=== PATIENT | male | born 1975 | race Caucasian/White ===

== ENCOUNTER 2022-02-15 12:45 | Inpatient (IN) | payer OTHER ==
[2022-02-15 12:01] VITALS: BMI 46.2
[2022-02-15 17:01] LABS: Hemoglobin 13.4 g/dL (13.5-17.5); Mean Corpuscular HGB CONC 33.3 g/dL (32.0-36.0); Mean Corpuscular Hemoglobin 30.6 pg (27.0-33.0); Mean Platelet Volume 9.7 fl (7.4-10.4); Platelet Count 338 10x3/uL (150-450); RBC Distribution Width 13.6 % (11.5-14.5); Red Blood Cell (RBC) Count 4.38 10x6/uL (4.32-5.72); White Blood Cell (WBC) Count 12.4 10x3/uL (3.5-10.5)
[2022-02-15 17:20] LABS: Anion Gap 14 mmol/L (10-20); BUN (Urea Nitrogen) 21 mg/dL (8.9-20.6); Calc. Creatinine Clearance 0 mL/min (70-130); Carbon Dioxide 21 mmol/L (22-29); Chloride 103 mmol/L (98-107); Estimated GFR 46; Glucose 97 mg/dL (70-105); Potassium 4.3 mmol/L (3.5-5.1); Sodium 134 mmol/L (136-145)
[2022-02-18] MEDS ORDERED: Heparin 5,000 UNITS/ML VIAL ONE (06:21)
[2022-02-18] MEDS ORDERED: Protamine Sulfate 50 MG/5 ML VIAL ONE (06:21)
[2022-02-18] MEDS ORDERED: Bupivacaine HCl 0.5%/Epinephrine 1:200,000/PF 30 ml Vial ONE (06:21)
[2022-02-18] MEDS ORDERED: Fentanyl 250 MCG/5 ML VIAL ONE (06:50)
[2022-02-18] MEDS ORDERED: Midazolam HCl 2 mg/2 ml Vial ONE (06:50)
[2022-02-18] MEDS ORDERED: Ondansetron ODT 4 MG TAB ONE (07:02)
[2022-02-18 07:17] LABS: SARS-CoV-2 NAA Rapid Test Not Detected (NotDetected)
[2022-02-18] MEDS ORDERED: CEFAZOLIN 2 GM VIAL ONE (07:23)
[2022-02-18] MEDS ORDERED: Sodium Chloride 0.9% 100 ML ONE (07:23)
[2022-02-18] MEDS ORDERED: PROPOFOL 200 MG/20 ML VIAL ONE (07:52)
[2022-02-18] MEDS ORDERED: NEOSTIGMINE 3 MG/3 ML SYR 3 MG/3 ML SYRINGE ONE (07:52)
[2022-02-18] MEDS ORDERED: Rocuronium Bromide 10 MG/ML (10ML VIAL) ONE (07:52)
[2022-02-18] MEDS ORDERED: Ondansetron PF 4 MG/2 ML Vial ONE (07:52)
[2022-02-18] MEDS ORDERED: Glycopyrrolate 0.2 MG/ML 5 ML SYRINGE ONE (07:52)
[2022-02-18] MEDS ORDERED: Succinylcholine Chloride 100 MG/5 ML SYRINGE FS ONE (07:52)
[2022-02-18] MEDS ORDERED: Lidocaine 1% PF 5 ML VIAL ONE (07:52)
[2022-02-18] MEDS ORDERED: Phenylephrine 10 MG/ML VIAL ONE (08:28)
[2022-02-18] MEDS ORDERED: Promethazine HCl 25 MG/ML VIAL IVPB PRN (12:13)
[2022-02-18] MEDS ORDERED: Promethazine HCl 25 MG/ML VIAL IM PRN (12:13)
[2022-02-18] MEDS ORDERED: Ondansetron HCl/PF 4 MG/2 ML Vial IVP PRN (12:13)
[2022-02-18] MEDS ORDERED: Ondansetron PF 4 MG/2 ML Vial IVP PRN (12:21)
[2022-02-18] MEDS ORDERED: Lactated Ringer's 1,000 ML IV SCH (12:21)
[2022-02-18] MEDS ORDERED: Fentanyl 100 MCG/2 ML VIAL SLOW IVP PRN ×2 (12:21)
[2022-02-18] MEDS ORDERED: Ipratropium/Albuterol 3 ML NEB NEB PRN (12:21)
[2022-02-18] MEDS ORDERED: clonazePAM 0.5 MG TAB PO PRN (12:21)
[2022-02-18] MEDS ORDERED: HYDROcodone/Acetaminophen 5/325 mg Tablet PO PRN ×2 (12:21)
[2022-02-18] MEDS ORDERED: Acetaminophen 325 MG TAB PO PRN (12:21)
[2022-02-18] MEDS ORDERED: Insulin Regular 300 UNITS/3 ML VIAL SC PRN (12:21)
[2022-02-18] MEDS ORDERED: Fentanyl 100 MCG/2 ML VIAL ONE ×2 (12:27→13:16)
[2022-02-18] MEDS ORDERED: QUEtiapine 25 MG TAB PO SCH (21:00)
[2022-02-18] MEDS ORDERED: Atorvastatin Calcium 40 MG TAB PO SCH (21:00)
[2022-02-18] MEDS: CEFAZOLIN 2 GM in Sodium Chloride 0.9% 100 ML IVPB SCH (21:17)
[2022-02-18] MEDS: Gabapentin 300 MG CAP PO SCH (21:23)
[2022-02-19] MEDS: CEFAZOLIN 2 GM in Sodium Chloride 0.9% 100 ML IVPB SCH ×2 (03:53→12:05)
[2022-02-19 06:03] LABS: #Lymphocytes 1.9 thou/uL (1.20-3.40); #Monocytes 0.9 thou/uL (0.11-0.59); %Basophils 0.1 % (0.0-1.0); %Eosinophils 0.1 % (0.0-10.0); %Lymphocytes 16.4 % (21.0-51.0); %Monocytes 7.8 % (0.0-10.0); %Neutrophils 75.7 % (42.0-75.0); Hemoglobin 12.6 g/dL (14.0-18.0); Mean Corpuscular HGB CONC 31.7 g/dL (32.0-36.0); Mean Corpuscular Hemoglobin 30.9 pg (27.0-31.0); Mean Corpuscular Volume 97.7 fl (78.0-98.0); Mean Platelet Volume 7.9 fL (7.4-10.4); Platelet Count 267 10x3/uL (130-400); RBC Distribution Width 13.2 % (11.5-14.5); Red Blood Cell (RBC) Count 4.08 mill/uL (4.70-6.10); White Blood Cell (WBC) Count 11.9 10x3/uL (4.8-10.8)
[2022-02-19 06:24] LABS: Anion Gap 11 mmol/L (10-20); BUN (Urea Nitrogen) 20 mg/dL (8.9-20.6); Calc. Creatinine Clearance 153 mL/min (70-130); Calcium 8.8 mg/dL (7.8-10.44); Carbon Dioxide 21 mmol/L (22-29); Chloride 109 mmol/L (98-107); Estimated GFR 61; Glucose 140 mg/dL (70-105); Potassium 4.7 mmol/L (3.5-5.1); Sodium 136 mmol/L (136-145)
[2022-02-19 07:45] VITALS: TEMP 97.9
[2022-02-19] MEDS ORDERED: Spironolactone 25 MG TAB PO SCH (08:00)
[2022-02-19] MEDS ORDERED: Nebivolol HCl 5 MG TAB PO SCH (09:00)
[2022-02-19] MEDS ORDERED: Clopidogrel Bisulfate 75 MG TAB PO SCH (09:00)
[2022-02-19] MEDS ORDERED: Bupropion 150 MG XL TAB PO SCH (09:00)
[2022-02-19] MEDS ORDERED: Aspirin Chewable 81 MG TAB PO SCH (09:00)
[2022-02-19] MEDS ORDERED: Venlafaxine HCl XR 150 MG CAP PO SCH (09:00)
[2022-02-19] MEDS ORDERED: Polyethylene Glycol 3350 17 GM Packet PO SCH (09:00)
[2022-02-19] MEDS ORDERED: Multivitamin W/ Minerals 1 TAB PO SCH (09:00)
[2022-02-19] MEDS ORDERED: Valsartan 80 MG TAB PO SCH (09:00)
[2022-02-19] MEDS ORDERED: Amlodipine 10 MG TAB PO SCH (09:00)
[2022-02-19] MEDS: Gabapentin 300 MG CAP PO SCH ×2 (09:22→15:47)
[2022-02-19 15:43] VITALS: BP 153/66
== END 2022-02-19 17:27 | disposition home or self-care (01) | DRG 253 ==
LOC: SURG A 02-18 06:00
PROVIDERS: ADMIT Thoracic Surgery (Cardiothoracic Vascular Surgery); ATTEND Thoracic Surgery (Cardiothoracic Vascular Surgery)
PROC: 041L09L Bypass Left Femoral Artery to Popliteal Artery with Autologous Venous Tissue, Open Approach (ICD-10-PCS; principal; 2022-02-18)
PROC: 06BQ0ZZ Excision of Left Saphenous Vein, Open Approach (ICD-10-PCS; 2022-02-18)
DX: I70.212 Atherosclerosis of native arteries of extremities with intermittent claudication, left leg (principal); Z68.42 Body mass index [BMI] 45.0-49.9, adult; Z20.822 Contact with and (suspected) exposure to COVID-19; I10 Essential (primary) hypertension; E78.5 Hyperlipidemia, unspecified; E66.9 Obesity, unspecified; F17.210 Nicotine dependence, cigarettes, uncomplicated; Z79.899 Other long term (current) drug therapy; Z79.82 Long term (current) use of aspirin; Z90.49 Acquired absence of other specified parts of digestive tract; Z82.49 Family history of ischemic heart disease and other diseases of the circulatory system
CPT/HCPCS: 36415; 36416; 80048; 85025; 85027; 86850; 86900; 86901; C1776; J1642; J1644; J1650; J2250; J2370; J2405; J2704; J2720; J3010; J3490; J7120; Q0162; U0002

== ENCOUNTER 2022-03-09 00:50 | Inpatient (IN) | payer OTHER ==
[2022-03-09] MEDS ORDERED: Ketorolac Tromethamine 30 MG/ML VIAL IVP PRN (02:13)
[2022-03-09] MEDS ORDERED: Ondansetron PF 4 MG/2 ML Vial IVP PRN (02:15)
[2022-03-09] MEDS ORDERED: Ondansetron ODT 4 MG TAB SL PRN (02:15)
[2022-03-09] MEDS ORDERED: Acetaminophen 325 MG TAB PO PRN (02:15)
[2022-03-09 02:27] VITALS: BMI 47.7
[2022-03-09 06:23] LABS: #Basophils 0.1 thou/uL (0.0-0.2); #Eosinphils 0.5 thou/uL (0.0-0.7); #Lymphocytes 3.3 thou/uL (1.20-3.40); #Monocytes 1.1 thou/uL (0.11-0.59); #Neutrophils 4.3 thou/uL (1.40-6.50); %Basophils 0.8 % (0.0-1.0); %Eosinophils 5.6 % (0.0-10.0); %Lymphocytes 35.4 % (21.0-51.0); %Monocytes 11.8 % (0.0-10.0); %Neutrophils 46.4 % (42.0-75.0); Hemoglobin 12.4 g/dL (14.0-18.0); Mean Corpuscular HGB CONC 32.8 g/dL (32.0-36.0); Mean Corpuscular Volume 94.5 fl (78.0-98.0); Mean Platelet Volume 7.5 fL (7.4-10.4); Platelet Count 326 10x3/uL (130-400); RBC Distribution Width 13.5 % (11.5-14.5); White Blood Cell (WBC) Count 9.3 10x3/uL (4.8-10.8)
[2022-03-09 06:34] LABS: Anion Gap 13 mmol/L (10-20); BUN (Urea Nitrogen) 17 mg/dL (8.9-20.6); Calc. Creatinine Clearance 157 mL/min (70-130); Calcium 8.7 mg/dL (7.8-10.44); Carbon Dioxide 19 mmol/L (22-29); Chloride 108 mmol/L (98-107); Estimated GFR 61; Glucose 125 mg/dL (70-105); Potassium 3.9 mmol/L (3.5-5.1); Sodium 136 mmol/L (136-145)
[2022-03-09 06:40] LABS: SARS-CoV-2 NAA Rapid Test Not Detected (NotDetected)
[2022-03-09] MEDS: Gabapentin 300 MG CAP PO SCH ×3 (08:48→20:38)
[2022-03-09] MEDS: Valsartan 80 MG TAB PO SCH (08:48)
[2022-03-09] MEDS: Spironolactone 25 MG TAB PO SCH (08:49)
[2022-03-09] MEDS: Bupropion 150 MG XL TAB PO SCH (08:49)
[2022-03-09] MEDS: Cefepime 2 GM in Sodium Chloride 0.9% 100 ML IVPB SCH ×2 (08:49→20:37)
[2022-03-09] MEDS: Nebivolol HCl 5 MG TAB PO SCH (08:49)
[2022-03-09] MEDS: Venlafaxine HCl XR 150 MG CAP PO SCH (08:49)
[2022-03-09] MEDS ORDERED: Amlodipine 10 MG TAB PO SCH (09:00)
[2022-03-09] MEDS ORDERED: Furosemide 40 MG TAB PO SCH (11:15)
[2022-03-09] MEDS ORDERED: Clopidogrel Bisulfate 75 MG TAB PO SCH (11:30)
[2022-03-09] MEDS ORDERED: Aspirin 81 mg Enteric Coated Tablet PO SCH (11:30)
[2022-03-09] MEDS ORDERED: VANCOMYCIN 2 GRAM/500 ML BAG 2 GM in Premix Bag 1 BAG IVPB SCH (13:00)
[2022-03-09] MEDS: Atorvastatin Calcium 20 MG TAB PO SCH (20:38)
[2022-03-09] MEDS: QUEtiapine 25 MG TAB PO SCH (20:38)
[2022-03-10 06:17] LABS: #Basophils 0.1 thou/uL (0.0-0.2); #Eosinphils 0.5 thou/uL (0.0-0.7); #Lymphocytes 2.7 thou/uL (1.20-3.40); #Monocytes 0.9 thou/uL (0.11-0.59); #Neutrophils 4.3 thou/uL (1.40-6.50); %Basophils 1.2 % (0.0-1.0); %Eosinophils 5.5 % (0.0-10.0); %Lymphocytes 32.2 % (21.0-51.0); %Monocytes 10.2 % (0.0-10.0); %Neutrophils 50.9 % (42.0-75.0); Hemoglobin 12.8 g/dL (14.0-18.0); Mean Corpuscular Hemoglobin 31.1 pg (27.0-31.0); Mean Corpuscular Volume 94.1 fl (78.0-98.0); Mean Platelet Volume 7.6 fL (7.4-10.4); Platelet Count 338 10x3/uL (130-400); RBC Distribution Width 13.5 % (11.5-14.5); Red Blood Cell (RBC) Count 4.12 mill/uL (4.70-6.10); White Blood Cell (WBC) Count 8.4 10x3/uL (4.8-10.8)
[2022-03-10 06:30] LABS: Anion Gap 13 mmol/L (10-20); BUN (Urea Nitrogen) 22 mg/dL (8.9-20.6); Calc. Creatinine Clearance 144 mL/min (70-130); Calcium 8.8 mg/dL (7.8-10.44); Carbon Dioxide 21 mmol/L (22-29); Chloride 106 mmol/L (98-107); Estimated GFR 55; Glucose 99 mg/dL (70-105); Potassium 4.3 mmol/L (3.5-5.1); Sodium 136 mmol/L (136-145)
[2022-03-10] MEDS: Cefepime 2 GM in Sodium Chloride 0.9% 100 ML IVPB SCH (09:00)
[2022-03-10] MEDS: NIFEdipine XL 60 MG TAB PO SCH (09:00)
[2022-03-10] MEDS: Nebivolol HCl 5 MG TAB PO SCH (09:00)
[2022-03-10] MEDS: Valsartan 80 MG TAB PO SCH (09:01)
[2022-03-10] MEDS: Gabapentin 300 MG CAP PO SCH ×3 (09:01→20:13)
[2022-03-10] MEDS: Clopidogrel Bisulfate 75 MG TAB PO SCH (09:01)
[2022-03-10] MEDS: Spironolactone 25 MG TAB PO SCH (09:02)
[2022-03-10] MEDS: Aspirin 81 mg Enteric Coated Tablet PO SCH (09:02)
[2022-03-10] MEDS: Venlafaxine HCl XR 150 MG CAP PO SCH (09:02)
[2022-03-10] MEDS: Potassium Chloride 10 MEQ TAB PO SCH (09:02)
[2022-03-10] MEDS: Bupropion 150 MG XL TAB PO SCH (09:02)
[2022-03-10] MEDS: Furosemide 40 MG TAB PO SCH (09:03)
[2022-03-10] MEDS: QUEtiapine 25 MG TAB PO SCH (20:14)
[2022-03-10] MEDS: Atorvastatin Calcium 20 MG TAB PO SCH (20:14)
[2022-03-10] MEDS ORDERED: cefTRIAXone\\ROCEPHIN 2 GM in Sodium Chloride 0.9% 100 ML IVPB SCH (21:00)
[2022-03-11 06:00] LABS: #Basophils 0.1 thou/uL (0.0-0.2); #Eosinphils 0.4 thou/uL (0.0-0.7); #Lymphocytes 2.9 thou/uL (1.20-3.40); #Monocytes 0.9 thou/uL (0.11-0.59); #Neutrophils 4.7 thou/uL (1.40-6.50); %Lymphocytes 32.5 % (21.0-51.0); %Monocytes 10.4 % (0.0-10.0); %Neutrophils 52.1 % (42.0-75.0); Hemoglobin 13.1 g/dL (14.0-18.0); Mean Corpuscular HGB CONC 32.7 g/dL (32.0-36.0); Mean Corpuscular Hemoglobin 30.7 pg (27.0-31.0); Mean Corpuscular Volume 93.8 fl (78.0-98.0); Mean Platelet Volume 7.6 fL (7.4-10.4); Platelet Count 333 10x3/uL (130-400); RBC Distribution Width 13.8 % (11.5-14.5); Red Blood Cell (RBC) Count 4.26 mill/uL (4.70-6.10)
[2022-03-11 06:20] LABS: Anion Gap 11 mmol/L (10-20); BUN (Urea Nitrogen) 23 mg/dL (8.9-20.6); Calc. Creatinine Clearance 144 mL/min (70-130); Calcium 9.1 mg/dL (7.8-10.44); Carbon Dioxide 22 mmol/L (22-29); Chloride 107 mmol/L (98-107); Estimated GFR 55; Glucose 95 mg/dL (70-105); Potassium 4.4 mmol/L (3.5-5.1); Sodium 136 mmol/L (136-145)
[2022-03-11] MEDS: Furosemide 40 MG TAB PO SCH (06:23)
[2022-03-11] MEDS: Potassium Chloride 10 MEQ TAB PO SCH (09:20)
[2022-03-11] MEDS: Aspirin 81 mg Enteric Coated Tablet PO SCH (09:20)
[2022-03-11] MEDS: Gabapentin 300 MG CAP PO SCH ×2 (09:20→13:52)
[2022-03-11] MEDS: Valsartan 80 MG TAB PO SCH (09:21)
[2022-03-11] MEDS: Nebivolol HCl 5 MG TAB PO SCH (09:21)
[2022-03-11] MEDS: Clopidogrel Bisulfate 75 MG TAB PO SCH (09:21)
[2022-03-11] MEDS: NIFEdipine XL 60 MG TAB PO SCH (09:21)
[2022-03-11] MEDS: Spironolactone 25 MG TAB PO SCH (09:21)
[2022-03-11] MEDS: Bupropion 150 MG XL TAB PO SCH (09:22)
[2022-03-11] MEDS: Venlafaxine HCl XR 150 MG CAP PO SCH (09:22)
[2022-03-11 17:07] VITALS: BP 147/75; TEMP 97.8
== END 2022-03-11 17:05 | disposition home or self-care (01) | DRG 315 ==
LOC: SURG B 01:54 → CCU 01:56 → SURG B 02:04
PROVIDERS: ADMIT Hospitalist; ATTEND Hospitalist
DX: T82.898A Other specified complication of vascular prosthetic devices, implants and grafts, initial encounter (principal); T81.31XA Disruption of external operation (surgical) wound, not elsewhere classified, initial encounter; Z68.42 Body mass index [BMI] 45.0-49.9, adult; I89.8 Other specified noninfective disorders of lymphatic vessels and lymph nodes; Z20.822 Contact with and (suspected) exposure to COVID-19; I12.9 Hypertensive chronic kidney disease with stage 1 through stage 4 chronic kidney disease, or unspecified chronic kidney disease; N18.30 Chronic kidney disease, stage 3 unspecified; I73.9 Peripheral vascular disease, unspecified; F17.210 Nicotine dependence, cigarettes, uncomplicated; E66.01 Morbid (severe) obesity due to excess calories; Y83.8 Other surgical procedures as the cause of abnormal reaction of the patient, or of later complication, without mention of misadventure at the time of the procedure; Z95.828 Presence of other vascular implants and grafts; Z79.899 Other long term (current) drug therapy; Z79.02 Long term (current) use of antithrombotics/antiplatelets; Z82.49 Family history of ischemic heart disease and other diseases of the circulatory system
CPT/HCPCS: 36415; 80048; 85025; J0692; J0696; J3490; U0002

== ENCOUNTER 2022-03-28 09:12 | Inpatient (IN) | payer OTHER ==
[2022-03-28] MEDS ORDERED: Ondansetron PF 4 MG/2 ML Vial ONE (10:11)
[2022-03-28] MEDS ORDERED: Cefepime 2 GM VIAL ONE (10:11)
[2022-03-28] MEDS ORDERED: Morphine 4 MG/ML VIAL ONE (10:11)
[2022-03-28] MEDS ORDERED: Vancomycin 1 GM/200 ML (FROZEN) BAG ONE (10:11)
[2022-03-28] MEDS ORDERED: Ketorolac Tromethamine 30 MG/ML VIAL ONE (10:11)
[2022-03-28 10:14] LABS: #Basophils 0.1 thou/uL (0.0-0.2); #Eosinphils 0.4 thou/uL (0.0-0.7); #Lymphocytes 1.8 thou/uL (1.20-3.40); #Monocytes 0.6 thou/uL (0.11-0.59); #Neutrophils 6.3 thou/uL (1.40-6.50); %Basophils 0.8 % (0.0-1.0); %Eosinophils 4.3 % (0.0-10.0); %Lymphocytes 19.9 % (21.0-51.0); %Monocytes 6.3 % (0.0-10.0); %Neutrophils 68.7 % (42.0-75.0); Hemoglobin 12.7 g/dL (14.0-18.0); Mean Corpuscular HGB CONC 33.2 g/dL (32.0-36.0); Mean Corpuscular Hemoglobin 31.4 pg (27.0-31.0); Mean Corpuscular Volume 94.5 fl (78.0-98.0); Mean Platelet Volume 7.7 fL (7.4-10.4); Platelet Count 309 10x3/uL (130-400); RBC Distribution Width 13.8 % (11.5-14.5); Red Blood Cell (RBC) Count 4.04 mill/uL (4.70-6.10); White Blood Cell (WBC) Count 9.2 10x3/uL (4.8-10.8)
[2022-03-28 10:35] LABS: ALT (SGPT) 23 U/L (8-55); AST (SGOT) 21 U/L (5-34); Albumin 3.3 g/dL (3.5-5.0); Alkaline Phosphatase 95 U/L (40-110); Anion Gap 12 mmol/L (10-20); BUN (Urea Nitrogen) 17 mg/dL (8.9-20.6); Bilirubin, Total 0.4 mg/dL (0.2-1.2); Calc. Creatinine Clearance 0 mL/min (70-130); Carbon Dioxide 22 mmol/L (22-29); Chloride 105 mmol/L (98-107); Estimated GFR 49; Globulin 3.8 g/dL (2.4-3.5); Glucose 169 mg/dL (70-105); Magnesium 2.1 mg/dL (1.6-2.6); Protein, Total 7.1 g/dL (6.0-8.3); Sodium 135 mmol/L (136-145)
[2022-03-28 10:37] LABS: Bacteria/HPF None Seen HPF (None Seen); Bilirubin Negative (Negative); Blood, Urine Negative (Negative); Clarity Clear (Clear); Glucose, Urine (Dipstick) 30 mg/dL (Negative); Ketone, Urine Negative (Negative); Leukocyte Negative Leu/uL (Negative); Nitrite Negative (Negative); Protein, Urine (Dipstick) 30 mg/dL (Neg-Trace); RBC/HPF 0-3 HPF (0-3); Specific Gravity, Urine 1.022 (1.002-1.036); Squamous Epithelial None Seen HPF (0-3); Urobilinogen 3 mg/dL (Less than 2); WBC/HPF None Seen HPF (0-3)
[2022-03-28 10:42] LABS: INR-International Normal Ratio 1.1; PTT 29.1 sec (22.9-36.1); Prothrombin Time 14.5 sec (12.0-14.7)
[2022-03-28 11:19] LABS: Actual Bicarbonate (HCO3v) 23 mEq/L (22-28); Analyzer IN Cardio ER; Base Excess -2.5 mEq/L (-2.0 to +3.0); Calcium, Ionized (venous) 1.14 mmol/L (1.16-1.32); Chloride (VBG) 104 mmol/L (98-106); Hemoglobin (Hb) 13.1 g/dL (13.1-17.2); Sodium 134.3 mmol/L (133-146); pH (venous) 7.36 (7.32-7.43)
[2022-03-28] MEDS ORDERED: Acetaminophen 325 MG TAB PO PRN (11:40)
[2022-03-28] MEDS ORDERED: Iopamidol 370 76% 100 ML VIAL ONE (13:15)
[2022-03-28] MEDS ORDERED: Nicotine 14 MG PATCH TD SCH (14:00)
[2022-03-28] MEDS ORDERED: Lidocaine 1% PF 5 ML VIAL FS SCH (14:30)
[2022-03-28 14:45] VITALS: BMI 42.4
[2022-03-28] MEDS ORDERED: traMADol HCl 50 MG TAB PO PRN (14:46)
[2022-03-28] MEDS ORDERED: Vancomycin 1 GM in Premix Bag 1 BAG IVPB SCH (15:00)
[2022-03-28 18:29] LABS: Synovial Fluid, Protein 3.8 g/dL (Not Available)
[2022-03-28] MEDS: Cefepime 2 GM in Sodium Chloride 0.9% 100 ML IVPB SCH (20:40)
[2022-03-28] MEDS: traMADol HCl 50 MG TAB PO PRN (23:16)
[2022-03-28] MEDS: VANCOMYCIN 2 GRAM/500 ML BAG 2 GM in Premix Bag 1 BAG IVPB SCH (23:53)
[2022-03-29] MEDS: traMADol HCl 50 MG TAB PO PRN ×3 (05:45→15:35)
[2022-03-29 07:32] LABS: #Basophils 0.1 thou/uL (0.0-0.2); #Eosinphils 0.4 thou/uL (0.0-0.7); #Lymphocytes 1.9 thou/uL (1.20-3.40); #Monocytes 0.6 thou/uL (0.11-0.59); #Neutrophils 5.2 thou/uL (1.40-6.50); %Eosinophils 5.5 % (0.0-10.0); %Lymphocytes 22.8 % (21.0-51.0); %Monocytes 7.3 % (0.0-10.0); %Neutrophils 63.5 % (42.0-75.0); Hemoglobin 12.2 g/dL (14.0-18.0); Mean Corpuscular HGB CONC 32.9 g/dL (32.0-36.0); Mean Corpuscular Hemoglobin 31.4 pg (27.0-31.0); Mean Corpuscular Volume 95.5 fl (78.0-98.0); Mean Platelet Volume 7.7 fL (7.4-10.4); Platelet Count 319 10x3/uL (130-400); RBC Distribution Width 13.6 % (11.5-14.5); Red Blood Cell (RBC) Count 3.88 mill/uL (4.70-6.10); White Blood Cell (WBC) Count 8.2 10x3/uL (4.8-10.8)
[2022-03-29 08:03] LABS: Anion Gap 14 mmol/L (10-20); BUN (Urea Nitrogen) 17 mg/dL (8.9-20.6); Calc. Creatinine Clearance 146 mL/min (70-130); Calcium 8.9 mg/dL (7.8-10.44); Carbon Dioxide 19 mmol/L (22-29); Chloride 109 mmol/L (98-107); Estimated GFR 65; Glucose 97 mg/dL (70-105); Potassium 4.5 mmol/L (3.5-5.1); Sodium 137 mmol/L (136-145)
[2022-03-29] MEDS ORDERED: clonazePAM 0.5 MG TAB PO PRN (08:06)
[2022-03-29] MEDS ORDERED: Non-Formulary Item 1 EACH (Valsartan [Diovan] 320 MG Tablet) PO SCH (09:00)
[2022-03-29] MEDS ORDERED: Non-Formulary Item 1 EACH (Gabapentin [Gabapentin] 600 MG Tablet) PO SCH (09:00)
[2022-03-29 09:01] LABS: RBC Count-Automated (BF) 1995 /cu.mm; WBC/Nucleated-Auto (BF) 11781 /cu.mm
[2022-03-29 09:21] LABS: Body Fluid Source Synovial Fluid; Tube # EDTA
[2022-03-29 09:22] LABS: BF Color Yellow; Clarity Hazy (Clear)
[2022-03-29 09:25] LABS: BF Segmented Neutrophils 62 %; Cell Count Non Hematic 32 %; Lymphocytes 6 %
[2022-03-29] MEDS: Cefepime 2 GM in Sodium Chloride 0.9% 100 ML IVPB SCH ×2 (10:45→21:01)
[2022-03-29] MEDS: Gabapentin 300 MG CAP PO SCH ×3 (10:46→21:01)
[2022-03-29] MEDS: Ezetimibe 10 MG TAB PO SCH (10:46)
[2022-03-29] MEDS: Nebivolol HCl 5 MG TAB PO SCH (10:47)
[2022-03-29] MEDS: Venlafaxine HCl XR 150 MG CAP PO SCH (10:47)
[2022-03-29] MEDS: Valsartan 80 MG TAB PO SCH (10:47)
[2022-03-29] MEDS: Amlodipine 10 MG TAB PO SCH (10:47)
[2022-03-29] MEDS: Bupropion 150 MG XL TAB PO SCH (10:48)
[2022-03-29] MEDS: VANCOMYCIN 2 GRAM/500 ML BAG 2 GM in Premix Bag 1 BAG IVPB SCH (12:09)
[2022-03-29] MEDS ORDERED: Non-Formulary Item 1 EACH (Quetiapine Fumarate [Seroquel] 50 MG Tablet) PO SCH (21:00)
[2022-03-29] MEDS: QUEtiapine 25 MG TAB PO SCH (21:00)
[2022-03-29] MEDS: Atorvastatin Calcium 40 MG TAB PO SCH (21:01)
[2022-03-30] MEDS: VANCOMYCIN 2 GRAM/500 ML BAG 2 GM in Premix Bag 1 BAG IVPB SCH (02:05)
[2022-03-30 03:56] LABS: Vancomycin, Trough 30.7 ug/mL
[2022-03-30] MEDS ORDERED: Vancomycin Dose by Levels Sliding Scale (Wt > 99) FS SCH (04:15)
[2022-03-30 07:22] LABS: #Basophils 0.1 thou/uL (0.0-0.2); #Eosinphils 0.5 thou/uL (0.0-0.7); #Lymphocytes 2.1 thou/uL (1.20-3.40); #Monocytes 0.6 thou/uL (0.11-0.59); #Neutrophils 3.9 thou/uL (1.40-6.50); %Basophils 1.2 % (0.0-1.0); %Eosinophils 6.4 % (0.0-10.0); %Lymphocytes 29.8 % (21.0-51.0); %Monocytes 8.7 % (0.0-10.0); %Neutrophils 53.9 % (42.0-75.0); Hemoglobin 12.9 g/dL (14.0-18.0); Mean Corpuscular HGB CONC 32.9 g/dL (32.0-36.0); Mean Corpuscular Hemoglobin 31.1 pg (27.0-31.0); Mean Corpuscular Volume 94.7 fl (78.0-98.0); Mean Platelet Volume 7.6 fL (7.4-10.4); Platelet Count 325 10x3/uL (130-400); RBC Distribution Width 13.7 % (11.5-14.5); Red Blood Cell (RBC) Count 4.14 mill/uL (4.70-6.10); White Blood Cell (WBC) Count 7.1 10x3/uL (4.8-10.8)
[2022-03-30 07:40] LABS: Anion Gap 14 mmol/L (10-20); BUN (Urea Nitrogen) 15 mg/dL (8.9-20.6); Calc. Creatinine Clearance 162 mL/min (70-130); Calcium 9.3 mg/dL (7.8-10.44); Carbon Dioxide 20 mmol/L (22-29); Chloride 107 mmol/L (98-107); Estimated GFR 73; Glucose 92 mg/dL (70-105); Potassium 4.5 mmol/L (3.5-5.1); Sodium 136 mmol/L (136-145)
[2022-03-30] MEDS: Venlafaxine HCl XR 150 MG CAP PO SCH (09:16)
[2022-03-30] MEDS: Cefepime 2 GM in Sodium Chloride 0.9% 100 ML IVPB SCH ×2 (09:16→21:23)
[2022-03-30] MEDS: Ezetimibe 10 MG TAB PO SCH (09:16)
[2022-03-30] MEDS: Spironolactone 25 MG TAB PO SCH (09:16)
[2022-03-30] MEDS: Bupropion 150 MG XL TAB PO SCH (09:16)
[2022-03-30] MEDS: Nebivolol HCl 5 MG TAB PO SCH (09:16)
[2022-03-30] MEDS: Gabapentin 300 MG CAP PO SCH ×3 (09:17→21:24)
[2022-03-30] MEDS: Amlodipine 10 MG TAB PO SCH (09:17)
[2022-03-30] MEDS: Clopidogrel Bisulfate 75 MG TAB PO SCH (09:17)
[2022-03-30] MEDS: Aspirin 81 mg Enteric Coated Tablet PO SCH (09:17)
[2022-03-30] MEDS: Valsartan 80 MG TAB PO SCH (09:53)
[2022-03-30] MEDS: Atorvastatin Calcium 40 MG TAB PO SCH (21:24)
[2022-03-30] MEDS: QUEtiapine 25 MG TAB PO SCH (21:24)
[2022-03-31 06:36] LABS: #Basophils 0.1 thou/uL (0.0-0.2); #Eosinphils 0.4 thou/uL (0.0-0.7); #Lymphocytes 2.2 thou/uL (1.20-3.40); #Monocytes 0.7 thou/uL (0.11-0.59); #Neutrophils 5.1 thou/uL (1.40-6.50); %Basophils 1.5 % (0.0-1.0); %Eosinophils 4.3 % (0.0-10.0); %Monocytes 8.4 % (0.0-10.0); %Neutrophils 59.9 % (42.0-75.0); Hemoglobin 12.9 g/dL (14.0-18.0); Mean Corpuscular HGB CONC 32.8 g/dL (32.0-36.0); Mean Corpuscular Hemoglobin 30.7 pg (27.0-31.0); Mean Corpuscular Volume 93.5 fl (78.0-98.0); Mean Platelet Volume 7.4 fL (7.4-10.4); Platelet Count 359 10x3/uL (130-400); RBC Distribution Width 13.6 % (11.5-14.5); Red Blood Cell (RBC) Count 4.21 mill/uL (4.70-6.10); White Blood Cell (WBC) Count 8.5 10x3/uL (4.8-10.8)
[2022-03-31 06:54] LABS: Anion Gap 13 mmol/L (10-20); BUN (Urea Nitrogen) 18 mg/dL (8.9-20.6); Calc. Creatinine Clearance 154 mL/min (70-130); Calcium 9.4 mg/dL (7.8-10.44); Carbon Dioxide 21 mmol/L (22-29); Chloride 105 mmol/L (98-107); Estimated GFR 69; Glucose 95 mg/dL (70-105); Potassium 4.4 mmol/L (3.5-5.1); Sodium 135 mmol/L (136-145)
[2022-03-31 07:43] VITALS: TEMP 98
[2022-03-31] MEDS: Bupropion 150 MG XL TAB PO SCH (08:29)
[2022-03-31] MEDS: Ezetimibe 10 MG TAB PO SCH (08:29)
[2022-03-31] MEDS: Nebivolol HCl 5 MG TAB PO SCH (08:29)
[2022-03-31] MEDS: Aspirin 81 mg Enteric Coated Tablet PO SCH (08:29)
[2022-03-31] MEDS: Venlafaxine HCl XR 150 MG CAP PO SCH (08:29)
[2022-03-31] MEDS: Gabapentin 300 MG CAP PO SCH ×2 (08:29→15:11)
[2022-03-31] MEDS: Valsartan 80 MG TAB PO SCH (08:29)
[2022-03-31] MEDS: Amlodipine 10 MG TAB PO SCH (08:29)
[2022-03-31] MEDS: Spironolactone 25 MG TAB PO SCH (08:29)
[2022-03-31] MEDS: Cefepime 2 GM in Sodium Chloride 0.9% 100 ML IVPB SCH (08:30)
[2022-03-31] MEDS: Clopidogrel Bisulfate 75 MG TAB PO SCH (08:30)
[2022-03-31] MEDS ORDERED: Furosemide 40 MG TAB PO SCH (09:00)
[2022-03-31 09:12] LABS: Vancomycin, Random 15.2 ug/mL (See Comment)
[2022-03-31] MEDS ORDERED: Vancomycin 1 GM in Premix Bag 1 BAG IVPB SCH (10:00)
[2022-03-31 15:37] VITALS: BP 147/88
== END 2022-03-31 15:41 | disposition home or self-care (01) | DRG 920 ==
LOC: ERS 09:12 → T4-A 13:13 → OBSVTOIN 03-29 08:16
PROVIDERS: ADMIT Family Medicine; ATTEND Internal Medicine
PROC: 0S9D3ZZ Drainage of Left Knee Joint, Percutaneous Approach (ICD-10-PCS; principal; 2022-03-28)
DX: T81.31XA Disruption of external operation (surgical) wound, not elsewhere classified, initial encounter (principal); I13.0 Hypertensive heart and chronic kidney disease with heart failure and stage 1 through stage 4 chronic kidney disease, or unspecified chronic kidney disease; T81.41XA Infection following a procedure, superficial incisional surgical site, initial encounter; I50.32 Chronic diastolic (congestive) heart failure; I96 Gangrene, not elsewhere classified; Z68.41 Body mass index [BMI] 40.0-44.9, adult; T81.49XA Infection following a procedure, other surgical site, initial encounter; L03.116 Cellulitis of left lower limb; I25.10 Atherosclerotic heart disease of native coronary artery without angina pectoris; E78.5 Hyperlipidemia, unspecified; F32.A Depression, unspecified; F41.9 Anxiety disorder, unspecified; M25.462 Effusion, left knee; M65.9 Synovitis and tenosynovitis, unspecified; E66.01 Morbid (severe) obesity due to excess calories; M10.9 Gout, unspecified; N18.9 Chronic kidney disease, unspecified; F17.210 Nicotine dependence, cigarettes, uncomplicated; Y83.8 Other surgical procedures as the cause of abnormal reaction of the patient, or of later complication, without mention of misadventure at the time of the procedure; B95.62 Methicillin resistant Staphylococcus aureus infection as the cause of diseases classified elsewhere; Z20.822 Contact with and (suspected) exposure to COVID-19; B95.5 Unspecified streptococcus as the cause of diseases classified elsewhere; Z79.82 Long term (current) use of aspirin; Z79.899 Other long term (current) drug therapy; Z95.5 Presence of coronary angioplasty implant and graft; Z90.49 Acquired absence of other specified parts of digestive tract
CPT/HCPCS: 36415; 80048; 80053; 80202; 81003; 81015; 82805; 82945; 83605; 83735; 83880; 84157; 84484; 84560; 85025; 85060; 85610; 85652; 85730; 86140; 87070; 87077; 87186; 87205; 89051; 89060; 93005; 96365; 96367; 96375; 96376; G0378; J0692; J1885; J2270; J2405; J3370; J3370-JW; J3490; Q9967; U0003; U0005

== ENCOUNTER 2022-05-02 16:03 | Inpatient (IN) | payer OTHER ==
[~2022-05-02 16:03] MED LIST: Iopamidol-370 76% 500 ML MDV (1 ML CHARGE) ONE
[2022-05-02 16:56] LABS: #Basophils 0.1 thou/uL (0.0-0.2); #Eosinphils 0.3 thou/uL (0.0-0.7); #Lymphocytes 2.9 thou/uL (1.20-3.40); #Monocytes 0.6 thou/uL (0.11-0.59); #Neutrophils 4.9 thou/uL (1.40-6.50); %Basophils 1.2 % (0.0-1.0); %Eosinophils 3.4 % (0.0-10.0); %Neutrophils 55.4 % (42.0-75.0); Hemoglobin 13.3 g/dL (14.0-18.0); Mean Corpuscular HGB CONC 33.2 g/dL (32.0-36.0); Mean Corpuscular Volume 93.5 fl (78.0-98.0); Mean Platelet Volume 7.5 fL (7.4-10.4); Platelet Count 272 10x3/uL (130-400); RBC Distribution Width 14.7 % (11.5-14.5); Red Blood Cell (RBC) Count 4.27 mill/uL (4.70-6.10); White Blood Cell (WBC) Count 8.9 10x3/uL (4.8-10.8)
[2022-05-02 17:21] LABS: ALT (SGPT) 25 U/L (8-55); AST (SGOT) 22 U/L (5-34); Alkaline Phosphatase 112 U/L (40-110); Anion Gap 13 mmol/L (10-20); BUN (Urea Nitrogen) 15 mg/dL (8.9-20.6); Bilirubin, Total 0.2 mg/dL (0.2-1.2); CRP (Inflammatory) 3.84 mg/dL (= or < 0.5); Calc. Creatinine Clearance 0 mL/min (70-130); Calcium 8.8 mg/dL (7.8-10.44); Carbon Dioxide 23 mmol/L (22-29); Chloride 101 mmol/L (98-107); Estimated GFR 50; Globulin 3.3 g/dL (2.4-3.5); Glucose 174 mg/dL (70-105); Potassium 3.3 mmol/L (3.5-5.1); Protein, Total 6.3 g/dL (6.0-8.3); Sodium 134 mmol/L (136-145)
[2022-05-02] MEDS ORDERED: Morphine 4 MG/ML VIAL ONE ×2 (17:21→17:55)
[2022-05-02] MEDS ORDERED: Vancomycin 1 GM/200 ML (FROZEN) BAG ONE (17:21)
[2022-05-02] MEDS ORDERED: Cefepime 2 GM VIAL ONE (21:11)
[2022-05-02 21:34] LABS: RBC Count-Automated (BF) 1248 /cu.mm; WBC/Nucleated-Auto (BF) 130 /cu.mm
[2022-05-02 21:35] LABS: BF Color Yellow; Body Fluid Source Synovial Fluid; Clarity Hazy (Clear); Tube # EDTA
[2022-05-02 21:57] LABS: BF Segmented Neutrophils 3 %; Cell Count Non Hematic 76 %; Lymphocytes 21 %
[2022-05-02] MEDS ORDERED: Labetalol HCl 100 MG/20 ML VIAL ONE (22:36)
[2022-05-02 23:43] VITALS: BMI 48.6
[2022-05-03] MEDS: Morphine 4 MG/ML VIAL SLOW IVP PRN ×3 (00:38→20:37)
[2022-05-03] MEDS ORDERED: Acetaminophen 325 MG TAB PO PRN (05:07)
[2022-05-03] MEDS ORDERED: Ondansetron PF 4 MG/2 ML Vial IVP PRN (05:07)
[2022-05-03] MEDS ORDERED: Potassium Chloride 20 MEQ TAB PO SCH (05:30)
[2022-05-03] MEDS: Vancomycin 1 GM in Premix Bag 1 BAG IVPB SCH ×2 (06:26→17:17)
[2022-05-03 08:51] LABS: #Basophils 0.1 thou/uL (0.0-0.2); #Eosinphils 0.3 thou/uL (0.0-0.7); #Lymphocytes 1.8 thou/uL (1.20-3.40); #Monocytes 0.6 thou/uL (0.11-0.59); #Neutrophils 3.5 thou/uL (1.40-6.50); %Basophils 1.2 % (0.0-1.0); %Eosinophils 4.6 % (0.0-10.0); %Lymphocytes 29.1 % (21.0-51.0); %Monocytes 9.5 % (0.0-10.0); %Neutrophils 55.7 % (42.0-75.0); Hemoglobin 12.4 g/dL (14.0-18.0); Mean Corpuscular HGB CONC 32.2 g/dL (32.0-36.0); Mean Corpuscular Hemoglobin 30.4 pg (27.0-31.0); Mean Corpuscular Volume 94.6 fl (78.0-98.0); Mean Platelet Volume 7.3 fL (7.4-10.4); Platelet Count 278 10x3/uL (130-400); RBC Distribution Width 14.8 % (11.5-14.5); Red Blood Cell (RBC) Count 4.08 mill/uL (4.70-6.10); White Blood Cell (WBC) Count 6.3 10x3/uL (4.8-10.8)
[2022-05-03 09:02] LABS: Anion Gap 8 mmol/L (10-20); BUN (Urea Nitrogen) 12 mg/dL (8.9-20.6); Calc. Creatinine Clearance 164 mL/min (70-130); Calcium 8.6 mg/dL (7.8-10.44); Carbon Dioxide 26 mmol/L (22-29); Chloride 105 mmol/L (98-107); Estimated GFR 63; Glucose 125 mg/dL (70-105); Potassium 3.8 mmol/L (3.5-5.1); Sodium 135 mmol/L (136-145)
[2022-05-03] MEDS: cefTRIAXone\\ROCEPHIN 2 GM in Sodium Chloride 0.9% 100 ML IVPB SCH (10:45)
[2022-05-03] MEDS: Saccharomyces boulardii 250 MG CAP PO SCH (12:59)
[2022-05-03] MEDS ORDERED: Valsartan 80 MG TAB PO SCH (13:15)
[2022-05-03] MEDS ORDERED: Nebivolol HCl 5 MG TAB PO SCH (13:15)
[2022-05-03] MEDS ORDERED: Amlodipine 10 MG TAB PO SCH (13:15)
[2022-05-03] MEDS: HYDROcodone/Acetaminophen 5/325 mg Tablet PO PRN (15:59)
[2022-05-03] MEDS: Atorvastatin Calcium 20 MG TAB PO SCH (20:37)
[2022-05-03] MEDS: Valsartan 80 MG TAB PO SCH (20:37)
[2022-05-04 05:50] LABS: #Basophils 0.1 thou/uL (0.0-0.2); #Eosinphils 0.3 thou/uL (0.0-0.7); #Lymphocytes 2.2 thou/uL (1.20-3.40); #Monocytes 0.7 thou/uL (0.11-0.59); #Neutrophils 5.2 thou/uL (1.40-6.50); %Basophils 0.9 % (0.0-1.0); %Eosinophils 4.1 % (0.0-10.0); %Lymphocytes 25.8 % (21.0-51.0); %Neutrophils 61.2 % (42.0-75.0); Hemoglobin 12.5 g/dL (14.0-18.0); Mean Corpuscular HGB CONC 33.8 g/dL (32.0-36.0); Mean Corpuscular Hemoglobin 31.6 pg (27.0-31.0); Mean Corpuscular Volume 93.6 fl (78.0-98.0); Mean Platelet Volume 7.6 fL (7.4-10.4); Platelet Count 257 10x3/uL (130-400); RBC Distribution Width 14.8 % (11.5-14.5); Red Blood Cell (RBC) Count 3.96 mill/uL (4.70-6.10); White Blood Cell (WBC) Count 8.4 10x3/uL (4.8-10.8)
[2022-05-04 05:56] LABS: Hemoglobin A1c 5.7 % (4.0-6.0)
[2022-05-04 06:15] LABS: Vancomycin, Trough 14.4 ug/mL
[2022-05-04 06:17] LABS: Anion Gap 12 mmol/L (10-20); BUN (Urea Nitrogen) 14 mg/dL (8.9-20.6); Calc. Creatinine Clearance 179 mL/min (70-130); Carbon Dioxide 24 mmol/L (22-29); Chloride 106 mmol/L (98-107); Estimated GFR 70; Glucose 87 mg/dL (70-105); Magnesium 2.6 mg/dL (1.6-2.6); Sodium 138 mmol/L (136-145)
[2022-05-04] MEDS: Vancomycin 1 GM in Premix Bag 1 BAG IVPB SCH ×2 (06:22→18:50)
[2022-05-04] MEDS: Furosemide 40 MG TAB PO SCH (09:30)
[2022-05-04] MEDS: Amlodipine 10 MG TAB PO SCH (09:30)
[2022-05-04] MEDS: Valsartan 80 MG TAB PO SCH ×2 (09:30→20:26)
[2022-05-04] MEDS: Clopidogrel Bisulfate 75 MG TAB PO SCH (09:30)
[2022-05-04] MEDS: Multivit, Therapeutic 1 TAB PO SCH (09:30)
[2022-05-04] MEDS: Nebivolol HCl 5 MG TAB PO SCH (09:30)
[2022-05-04] MEDS: Bupropion 150 MG XL TAB PO SCH (09:30)
[2022-05-04] MEDS: cefTRIAXone\\ROCEPHIN 2 GM in Sodium Chloride 0.9% 100 ML IVPB SCH (10:18)
[2022-05-04] MEDS: HYDROcodone/Acetaminophen 5/325 mg Tablet PO PRN (10:21)
[2022-05-04] MEDS: Morphine 4 MG/ML VIAL SLOW IVP PRN ×2 (15:11→20:26)
[2022-05-04] MEDS: Saccharomyces boulardii 250 MG CAP PO SCH (15:12)
[2022-05-04] MEDS: Atorvastatin Calcium 20 MG TAB PO SCH (20:26)
[2022-05-05] MEDS: Vancomycin 1 GM in Premix Bag 1 BAG IVPB SCH ×2 (06:10→18:13)
[2022-05-05 07:30] LABS: #Basophils 0.1 thou/uL (0.0-0.2); #Eosinphils 0.4 thou/uL (0.0-0.7); #Lymphocytes 1.9 thou/uL (1.20-3.40); #Monocytes 0.6 thou/uL (0.11-0.59); #Neutrophils 4.5 thou/uL (1.40-6.50); %Basophils 0.7 % (0.0-1.0); %Eosinophils 4.8 % (0.0-10.0); %Lymphocytes 25.9 % (21.0-51.0); %Monocytes 8.1 % (0.0-10.0); %Neutrophils 60.6 % (42.0-75.0); Hemoglobin 13.2 g/dL (14.0-18.0); Mean Corpuscular HGB CONC 32.2 g/dL (32.0-36.0); Mean Corpuscular Hemoglobin 30.7 pg (27.0-31.0); Mean Corpuscular Volume 95.3 fl (78.0-98.0); Mean Platelet Volume 7.6 fL (7.4-10.4); Platelet Count 290 10x3/uL (130-400); RBC Distribution Width 15.1 % (11.5-14.5); Red Blood Cell (RBC) Count 4.29 mill/uL (4.70-6.10); White Blood Cell (WBC) Count 7.5 10x3/uL (4.8-10.8)
[2022-05-05 07:53] LABS: ALT (SGPT) 29 U/L (8-55); AST (SGOT) 32 U/L (5-34); Albumin 2.9 g/dL (3.5-5.0); Alkaline Phosphatase 107 U/L (40-110); Anion Gap 12 mmol/L (10-20); BUN (Urea Nitrogen) 16 mg/dL (8.9-20.6); Bilirubin, Total 0.3 mg/dL (0.2-1.2); Calc. Creatinine Clearance 154 mL/min (70-130); Carbon Dioxide 24 mmol/L (22-29); Chloride 104 mmol/L (98-107); Estimated GFR 58; Globulin 3.7 g/dL (2.4-3.5); Glucose 107 mg/dL (70-105); Magnesium 2.1 mg/dL (1.6-2.6); Potassium 3.9 mmol/L (3.5-5.1); Protein, Total 6.6 g/dL (6.0-8.3); Sodium 136 mmol/L (136-145)
[2022-05-05] MEDS: Nebivolol HCl 5 MG TAB PO SCH (10:05)
[2022-05-05] MEDS: Amlodipine 10 MG TAB PO SCH (10:05)
[2022-05-05] MEDS: Furosemide 40 MG TAB PO SCH (10:05)
[2022-05-05] MEDS: Clopidogrel Bisulfate 75 MG TAB PO SCH (10:05)
[2022-05-05] MEDS: Multivit, Therapeutic 1 TAB PO SCH (10:05)
[2022-05-05] MEDS: Bupropion 150 MG XL TAB PO SCH (10:06)
[2022-05-05] MEDS: Valsartan 80 MG TAB PO SCH ×2 (10:06→21:12)
[2022-05-05] MEDS: cefTRIAXone\\ROCEPHIN 2 GM in Sodium Chloride 0.9% 100 ML IVPB SCH (10:06)
[2022-05-05] MEDS: Saccharomyces boulardii 250 MG CAP PO SCH (14:33)
[2022-05-05 17:26] LABS: Vancomycin, Trough 18.9 ug/mL
[2022-05-05] MEDS: Atorvastatin Calcium 20 MG TAB PO SCH (21:12)
[2022-05-05] MEDS: Morphine 4 MG/ML VIAL SLOW IVP PRN (21:16)
[2022-05-06] MEDS ORDERED: FLU VACC QS2022-23(6MO UP)/PF 60 MCG/0.5 ML SYRINGE IM ONE (00:15)
[2022-05-06 06:01] LABS: #Basophils 0.1 thou/uL (0.0-0.2); #Eosinphils 0.4 thou/uL (0.0-0.7); #Lymphocytes 1.9 thou/uL (1.20-3.40); #Monocytes 0.7 thou/uL (0.11-0.59); #Neutrophils 3.8 thou/uL (1.40-6.50); %Basophils 0.8 % (0.0-1.0); %Eosinophils 5.7 % (0.0-10.0); %Lymphocytes 28.3 % (21.0-51.0); %Monocytes 9.6 % (0.0-10.0); %Neutrophils 55.6 % (42.0-75.0); Hemoglobin 13.8 g/dL (14.0-18.0); Mean Corpuscular HGB CONC 31.6 g/dL (32.0-36.0); Mean Corpuscular Hemoglobin 29.7 pg (27.0-31.0); Mean Corpuscular Volume 93.7 fl (78.0-98.0); Mean Platelet Volume 7.5 fL (7.4-10.4); Platelet Count 315 10x3/uL (130-400); RBC Distribution Width 15.2 % (11.5-14.5); Red Blood Cell (RBC) Count 4.66 mill/uL (4.70-6.10); White Blood Cell (WBC) Count 6.8 10x3/uL (4.8-10.8)
[2022-05-06 06:17] LABS: Anion Gap 13 mmol/L (10-20); BUN (Urea Nitrogen) 15 mg/dL (8.9-20.6); Calc. Creatinine Clearance 165 mL/min (70-130); Calcium 9.2 mg/dL (7.8-10.44); Carbon Dioxide 21 mmol/L (22-29); Chloride 105 mmol/L (98-107); Estimated GFR 63; Glucose 93 mg/dL (70-105); Magnesium 2.1 mg/dL (1.6-2.6); Sodium 135 mmol/L (136-145)
[2022-05-06] MEDS: Vancomycin 1 GM in Premix Bag 1 BAG IVPB SCH ×2 (06:27→17:33)
[2022-05-06] MEDS: Clopidogrel Bisulfate 75 MG TAB PO SCH (08:36)
[2022-05-06] MEDS: Furosemide 40 MG TAB PO SCH (08:36)
[2022-05-06] MEDS: Valsartan 80 MG TAB PO SCH (08:37)
[2022-05-06] MEDS: Multivit, Therapeutic 1 TAB PO SCH (08:37)
[2022-05-06] MEDS: Amlodipine 10 MG TAB PO SCH (08:37)
[2022-05-06] MEDS: Nebivolol HCl 5 MG TAB PO SCH (08:38)
[2022-05-06] MEDS: Bupropion 150 MG XL TAB PO SCH (10:14)
[2022-05-06] MEDS: cefTRIAXone\\ROCEPHIN 2 GM in Sodium Chloride 0.9% 100 ML IVPB SCH (10:36)
[2022-05-06] MEDS: Morphine 4 MG/ML VIAL SLOW IVP PRN (12:25)
[2022-05-06] MEDS: Saccharomyces boulardii 250 MG CAP PO SCH (13:45)
[2022-05-06 17:33] VITALS: BP 147/83; TEMP 98.2
== END 2022-05-06 17:55 | disposition home or self-care (01) | DRG 920 ==
LOC: ERS 16:03 → T4-B 20:53
PROVIDERS: ADMIT Internal Medicine; ATTEND Hospitalist
DX: T81.30XA Disruption of wound, unspecified, initial encounter (principal); E87.1 Hypo-osmolality and hyponatremia; L03.116 Cellulitis of left lower limb; Z68.42 Body mass index [BMI] 45.0-49.9, adult; N17.9 Acute kidney failure, unspecified; E78.5 Hyperlipidemia, unspecified; I25.10 Atherosclerotic heart disease of native coronary artery without angina pectoris; F41.9 Anxiety disorder, unspecified; F32.A Depression, unspecified; I12.9 Hypertensive chronic kidney disease with stage 1 through stage 4 chronic kidney disease, or unspecified chronic kidney disease; N18.30 Chronic kidney disease, stage 3 unspecified; I73.9 Peripheral vascular disease, unspecified; E87.6 Hypokalemia; E66.01 Morbid (severe) obesity due to excess calories; Z79.899 Other long term (current) drug therapy; Z90.49 Acquired absence of other specified parts of digestive tract; Z79.82 Long term (current) use of aspirin; B95.62 Methicillin resistant Staphylococcus aureus infection as the cause of diseases classified elsewhere
CPT/HCPCS: 20610; 36415; 80048; 80053; 80202; 82945; 83036; 83735; 85025; 85060; 86140; 87040; 87070; 87077; 87186; 87205; 89051; 89060; 96361; 96365; 96367; 96375; 97139; J0692; J0696; J2270; J2405; J3370-JW; J3490; Q9967

== ENCOUNTER 2022-12-16 17:00 | Outpatient (CLI) | payer OTHER | END 2022-12-16 17:01 | disposition home or self-care (01) | LOC: SLEEPLAB 17:00 | PROVIDERS: ATTEND Physician Assistant | DX: G47.33 Obstructive sleep apnea (adult) (pediatric) (principal); R53.83 Other fatigue; R51.9 Headache, unspecified; G31.84 Mild cognitive impairment of uncertain or unknown etiology; F32.A Depression, unspecified; K21.9 Gastro-esophageal reflux disease without esophagitis; F41.9 Anxiety disorder, unspecified; E66.9 Obesity, unspecified; R06.83 Snoring; I49.9 Cardiac arrhythmia, unspecified; I25.10 Atherosclerotic heart disease of native coronary artery without angina pectoris; I10 Essential (primary) hypertension; G47.00 Insomnia, unspecified; G47.10 Hypersomnia, unspecified; G47.31 Primary central sleep apnea; Z68.43 Body mass index [BMI] 50.0-59.9, adult | CPT/HCPCS: 95811 ==

== ENCOUNTER 2023-01-18 06:29 | Inpatient (IN) | payer OTHER ==
[2023-01-18] MEDS ORDERED: Furosemide 40 MG (4 mL) VIAL ONE (06:35)
[2023-01-18 06:44] LABS: #Basophils 0.1 thou/uL (0.0-0.2); #Eosinphils 0.1 thou/uL (0.0-0.7); #Monocytes 1.4 thou/uL (0.11-0.59); #Neutrophils 13.5 thou/uL (1.40-6.50); %Basophils 0.2 % (0.0-1.0); %Eosinophils 0.4 % (0.0-10.0); %Lymphocytes 24.5 % (21.0-51.0); %Monocytes 6.8 % (0.0-10.0); Hematocrit 42.1 % (42.0-52.0); Hemoglobin 13.5 g/dL (14.0-18.0); Mean Corpuscular HGB CONC 32.1 g/dL (32.0-36.0); Mean Corpuscular Hemoglobin 29.8 pg (27.0-31.0); Mean Corpuscular Volume 92.9 fl (78.0-98.0); Mean Platelet Volume 10.4 fL (7.4-10.4); Platelet Count 428 10x3/uL (130-400); RBC Distribution Width 13.9 % (11.5-14.5); Red Blood Cell (RBC) Count 4.53 mill/uL (4.70-6.10); White Blood Cell (WBC) Count 20.1 10x3/uL (4.8-10.8)
[2023-01-18 06:48] LABS: Actual Bicarbonate (HCO3v) 19.3 mEq/L (22-28); Analyzer IN Cardio ER; Base Excess -7.4 mEq/L (-2.0 to +3.0); Calcium, Ionized (venous) 1.06 mmol/L (1.16-1.32); Chloride (VBG) 105 mmol/L (98-106); Hematocrit-VBG 42 % (42.0-52.0); Hemoglobin (Hb) 14.3 g/dL (13.1-17.2); Potassium (VBG) 3.48 mmol/L (3.70-5.30); Sodium 139 mmol/L (133-146); pH (venous) 7.263 (7.32-7.43)
[2023-01-18 07:10] LABS: Troponin I 0.091 ng/mL (< 0.028)
[2023-01-18 07:12] LABS: ALT (SGPT) 43 U/L (8-55); AST (SGOT) 46 U/L (5-34); Albumin 2.9 g/dL (3.5-5.0); Alkaline Phosphatase 99 U/L (40-110); Anion Gap 18 mmol/L (10-20); BUN (Urea Nitrogen) 25 mg/dL (8.9-20.6); Bilirubin, Total 0.3 mg/dL (0.2-1.2); Calc. Creatinine Clearance 0 mL/min (70-130); Calcium 8.1 mg/dL (7.8-10.44); Carbon Dioxide 19 mmol/L (22-29); Chloride 106 mmol/L (98-107); Estimated GFR 32; Globulin 3.5 g/dL (2.4-3.5); Glucose 181 mg/dL (70-105); Potassium 3.6 mmol/L (3.5-5.1); Protein, Total 6.4 g/dL (6.0-8.3); Sodium 139 mmol/L (136-145)
[2023-01-18] MEDS ORDERED: Cefepime 2 GM VIAL ONE (07:16)
[2023-01-18] MEDS ORDERED: Sodium Chloride 0.9% 100 ML ONE (07:17)
[2023-01-18] MEDS ORDERED: Glucagon 1 MG/ML KIT IM PRN (09:22)
[2023-01-18] MEDS ORDERED: Dextrose 50% Abboject 50 ML SYRINGE SLOW IVP PRN (09:22)
[2023-01-18] MEDS ORDERED: HYDROcodone/Acetaminophen 5/325 mg Tablet PO PRN ×2 (09:22)
[2023-01-18] MEDS ORDERED: Dextrose 5% in Water 1,000 ML IV PRN (09:22)
[2023-01-18] MEDS ORDERED: Ondansetron PF 4 MG/2 ML Vial IVP PRN (09:27)
[2023-01-18] MEDS ORDERED: Acetaminophen 325 MG TAB PO PRN (09:27)
[2023-01-18] MEDS ORDERED: Ondansetron ODT 4 MG TAB PO PRN (09:27)
[2023-01-18 09:55] LABS: Lactic Acid 1.6 mmol/L (0.5-2.2)
[2023-01-18 10:04] LABS: Troponin I 0.106 ng/mL (< 0.028)
[2023-01-18 12:54] LABS: Troponin I 0.097 ng/mL (< 0.028)
[2023-01-18] MEDS ORDERED: FLU VACC QS2023-24(6MOS UP)/PF 60 MCG/0.5 ML SYRINGE IM ONE (14:00)
[2023-01-18] MEDS: Gabapentin 300 MG CAP PO SCH ×2 (14:03→20:49)
[2023-01-18] MEDS: Furosemide 40 MG (4 mL) VIAL SLOW IVP SCH (14:03)
[2023-01-18] MEDS: Acetaminophen 325 MG TAB PO PRN (14:03)
[2023-01-18] MEDS ORDERED: Non-Formulary Item 1 EACH (Gabapentin [Gabapentin] 600 MG Tablet) PO SCH (15:00)
[2023-01-18] MEDS: HumaLOG 300 UNITS/3 ML VIAL SC PRN (16:58)
[2023-01-18] MEDS ORDERED: Nitroglycerin 50 MG/250 ML BOT 250 ML ONE (20:33)
[2023-01-18] MEDS: Nitroglycerin 50 MG/250 ML BOT 250 ML IVPB SCH (20:35)
[2023-01-18] MEDS: Cefepime 2 GM in Sodium Chloride 0.9% 100 ML IVPB SCH (20:40)
[2023-01-18] MEDS: Atorvastatin Calcium 20 MG TAB PO SCH (20:49)
[2023-01-18] MEDS: QUEtiapine 25 MG TAB PO SCH (20:50)
[2023-01-18] MEDS: Ranolazine 500 MG ER.TAB PO SCH (20:51)
[2023-01-18] MEDS ORDERED: Non-Formulary Item 1 EACH (Quetiapine Fumarate [Seroquel] 50 MG Tablet) PO SCH (21:00)
[2023-01-19 04:14] LABS: #Eosinphils 0.1 thou/uL (0.0-0.7); #Monocytes 1.6 thou/uL (0.11-0.59); #Neutrophils 12.9 thou/uL (1.40-6.50); %Basophils 0.2 % (0.0-1.0); %Eosinophils 0.5 % (0.0-10.0); %Lymphocytes 26.4 % (21.0-51.0); %Neutrophils 64.2 % (42.0-75.0); Hematocrit 35.9 % (42.0-52.0); Hemoglobin 11.8 g/dL (14.0-18.0); Mean Corpuscular HGB CONC 32.9 g/dL (32.0-36.0); Mean Corpuscular Hemoglobin 29.9 pg (27.0-31.0); Mean Corpuscular Volume 91.1 fl (78.0-98.0); Mean Platelet Volume 10.3 fL (7.4-10.4); Platelet Count 362 10x3/uL (130-400); RBC Distribution Width 13.9 % (11.5-14.5); Red Blood Cell (RBC) Count 3.94 mill/uL (4.70-6.10); White Blood Cell (WBC) Count 20.1 10x3/uL (4.8-10.8)
[2023-01-19] MEDS: Acetaminophen 325 MG TAB PO PRN (04:47)
[2023-01-19 04:52] LABS: Anion Gap 11 mmol/L (10-20); BUN (Urea Nitrogen) 34 mg/dL (8.9-20.6); Calc. Creatinine Clearance 93 mL/min (70-130); Calcium 7.9 mg/dL (7.8-10.44); Carbon Dioxide 25 mmol/L (22-29); Chloride 104 mmol/L (98-107); Estimated GFR 31; Glucose 96 mg/dL (70-105); Potassium 3.4 mmol/L (3.5-5.1); Sodium 137 mmol/L (136-145)
[2023-01-19] MEDS: Furosemide 40 MG (4 mL) VIAL SLOW IVP SCH ×2 (06:06→14:06)
[2023-01-19] MEDS: Nitroglycerin 50 MG/250 ML BOT 250 ML IVPB SCH ×3 (06:16→22:25)
[2023-01-19] MEDS ORDERED: Spironolactone 25 MG TAB PO SCH (08:00)
[2023-01-19] MEDS: Amlodipine 10 MG TAB PO SCH (08:28)
[2023-01-19] MEDS: Cefepime 2 GM in Sodium Chloride 0.9% 100 ML IVPB SCH ×2 (08:29→20:12)
[2023-01-19] MEDS: Ezetimibe 10 MG TAB PO SCH (08:29)
[2023-01-19] MEDS: Gabapentin 300 MG CAP PO SCH ×3 (08:29→20:13)
[2023-01-19] MEDS: Enoxaparin 40 MG (0.4 mL) SYRINGE SC SCH (08:29)
[2023-01-19] MEDS: Ranolazine 500 MG ER.TAB PO SCH ×2 (08:30→20:13)
[2023-01-19] MEDS: Venlafaxine 75 MG TAB PO SCH (08:30)
[2023-01-19] MEDS: BuPROPion XL 150 MG ER.TAB PO SCH (08:30)
[2023-01-19] MEDS: Clopidogrel Bisulfate 75 MG TAB PO SCH (08:30)
[2023-01-19] MEDS: Empagliflozin 10 MG TAB PO SCH (08:30)
[2023-01-19] MEDS ORDERED: Non-Formulary Item 1 EACH (Nebivolol Hcl [Nebivolol Hcl] 10 MG Tablet) PO SCH (09:00)
[2023-01-19] MEDS ORDERED: Non-Formulary Item 1 EACH (Valsartan [Diovan] 320 MG Tablet) PO SCH (09:00)
[2023-01-19] MEDS ORDERED: Valsartan 80 MG TAB PO SCH (09:00)
[2023-01-19] MEDS ORDERED: Nebivolol HCl 5 MG TAB PO SCH (09:00)
[2023-01-19] MEDS: Ondansetron PF 4 MG/2 ML Vial IVP PRN (15:56)
[2023-01-19] MEDS: Ipratropium/Albuterol 3 ML NEB NEB PRN (18:21)
[2023-01-19] MEDS: Budesonide 0.5 MG/2 ML NEB INH SCH (18:23)
[2023-01-19] MEDS: Atorvastatin Calcium 20 MG TAB PO SCH (20:13)
[2023-01-19] MEDS: QUEtiapine 25 MG TAB PO SCH (20:13)
[2023-01-20 04:19] LABS: #Eosinphils 0.3 thou/uL (0.0-0.7); #Monocytes 1.3 thou/uL (0.11-0.59); #Neutrophils 9.4 thou/uL (1.40-6.50); %Basophils 0.2 % (0.0-1.0); %Eosinophils 2.1 % (0.0-10.0); %Lymphocytes 20.9 % (21.0-51.0); %Monocytes 9.1 % (0.0-10.0); %Neutrophils 67.2 % (42.0-75.0); Hematocrit 36.2 % (42.0-52.0); Hemoglobin 11.8 g/dL (14.0-18.0); Mean Corpuscular HGB CONC 32.6 g/dL (32.0-36.0); Mean Corpuscular Hemoglobin 29.5 pg (27.0-31.0); Mean Corpuscular Volume 90.5 fl (78.0-98.0); Mean Platelet Volume 10.6 fL (7.4-10.4); Platelet Count 304 10x3/uL (130-400); RBC Distribution Width 14.1 % (11.5-14.5)
[2023-01-20 04:36] LABS: Anion Gap 11 mmol/L (10-20); BUN (Urea Nitrogen) 37 mg/dL (8.9-20.6); Calc. Creatinine Clearance 102 mL/min (70-130); Calcium 8.1 mg/dL (7.8-10.44); Carbon Dioxide 25 mmol/L (22-29); Chloride 105 mmol/L (98-107); Estimated GFR 35; Glucose 98 mg/dL (70-105); Potassium 3.6 mmol/L (3.5-5.1); Sodium 137 mmol/L (136-145)
[2023-01-20] MEDS: Furosemide 40 MG (4 mL) VIAL SLOW IVP SCH ×3 (05:57→20:58)
[2023-01-20] MEDS: Acetaminophen 325 MG TAB PO PRN (06:04)
[2023-01-20] MEDS: Budesonide 0.5 MG/2 ML NEB INH SCH ×2 (08:22→18:11)
[2023-01-20] MEDS: Ipratropium/Albuterol 3 ML NEB NEB PRN ×2 (08:24→18:09)
[2023-01-20] MEDS: Cefepime 2 GM in Sodium Chloride 0.9% 100 ML IVPB SCH ×2 (09:15→20:59)
[2023-01-20] MEDS: Amlodipine 10 MG TAB PO SCH (09:16)
[2023-01-20] MEDS: Venlafaxine 75 MG TAB PO SCH (09:16)
[2023-01-20] MEDS: BuPROPion XL 150 MG ER.TAB PO SCH (09:16)
[2023-01-20] MEDS: Empagliflozin 10 MG TAB PO SCH (09:17)
[2023-01-20] MEDS: Gabapentin 300 MG CAP PO SCH ×3 (09:17→20:58)
[2023-01-20] MEDS: Ezetimibe 10 MG TAB PO SCH (09:17)
[2023-01-20] MEDS: Clopidogrel Bisulfate 75 MG TAB PO SCH (09:17)
[2023-01-20] MEDS: Ranolazine 500 MG ER.TAB PO SCH ×2 (09:17→20:58)
[2023-01-20] MEDS ORDERED: Furosemide 40 MG (4 mL) VIAL SLOW IVP SCH (11:30)
[2023-01-20] MEDS: Ondansetron PF 4 MG/2 ML Vial IVP PRN (12:02)
[2023-01-20] MEDS: Enoxaparin 40 MG (0.4 mL) SYRINGE SC SCH ×2 (19:33→20:59)
[2023-01-20] MEDS: Atorvastatin Calcium 20 MG TAB PO SCH (20:58)
[2023-01-20] MEDS: QUEtiapine 25 MG TAB PO SCH (20:58)
[2023-01-21] MEDS: Nitroglycerin 50 MG/250 ML BOT 250 ML IVPB SCH (03:41)
[2023-01-21 03:54] LABS: #Eosinphils 0.4 thou/uL (0.0-0.7); #Monocytes 1.2 thou/uL (0.11-0.59); #Neutrophils 9.5 thou/uL (1.40-6.50); %Basophils 0.2 % (0.0-1.0); %Eosinophils 2.6 % (0.0-10.0); %Lymphocytes 18.6 % (21.0-51.0); %Neutrophils 69.1 % (42.0-75.0); Hematocrit 35.8 % (42.0-52.0); Hemoglobin 11.7 g/dL (14.0-18.0); Mean Corpuscular HGB CONC 32.7 g/dL (32.0-36.0); Mean Corpuscular Hemoglobin 29.7 pg (27.0-31.0); Mean Corpuscular Volume 90.9 fl (78.0-98.0); Mean Platelet Volume 10.5 fL (7.4-10.4); Platelet Count 290 10x3/uL (130-400); Red Blood Cell (RBC) Count 3.94 mill/uL (4.70-6.10); White Blood Cell (WBC) Count 13.7 10x3/uL (4.8-10.8)
[2023-01-21 04:17] LABS: Anion Gap 14 mmol/L (10-20); BUN (Urea Nitrogen) 39 mg/dL (8.9-20.6); Calc. Creatinine Clearance 106 mL/min (70-130); Calcium 8.2 mg/dL (7.8-10.44); Carbon Dioxide 22 mmol/L (22-29); Chloride 103 mmol/L (98-107); Estimated GFR 37; Glucose 85 mg/dL (70-105); Potassium 3.8 mmol/L (3.5-5.1); Sodium 135 mmol/L (136-145)
[2023-01-21] MEDS: Furosemide 40 MG (4 mL) VIAL SLOW IVP SCH ×2 (05:25→08:12)
[2023-01-21] MEDS: Amlodipine 10 MG TAB PO SCH (08:08)
[2023-01-21] MEDS: BuPROPion XL 150 MG ER.TAB PO SCH (08:09)
[2023-01-21] MEDS: Cefepime 2 GM in Sodium Chloride 0.9% 100 ML IVPB SCH ×2 (08:09→20:42)
[2023-01-21] MEDS: Clopidogrel Bisulfate 75 MG TAB PO SCH (08:10)
[2023-01-21] MEDS: Enoxaparin 40 MG (0.4 mL) SYRINGE SC SCH ×2 (08:10→20:41)
[2023-01-21] MEDS: Ezetimibe 10 MG TAB PO SCH (08:11)
[2023-01-21] MEDS: Gabapentin 300 MG CAP PO SCH ×3 (08:12→20:41)
[2023-01-21] MEDS: Ranolazine 500 MG ER.TAB PO SCH ×2 (08:13→20:41)
[2023-01-21] MEDS: Venlafaxine 75 MG TAB PO SCH (08:14)
[2023-01-21] MEDS: Budesonide 0.5 MG/2 ML NEB INH SCH ×2 (08:15→18:44)
[2023-01-21] MEDS: Empagliflozin 10 MG TAB PO SCH (09:58)
[2023-01-21] MEDS ORDERED: Spironolactone 25 MG TAB PO SCH (10:30)
[2023-01-21] MEDS: Ondansetron PF 4 MG/2 ML Vial IVP PRN (10:42)
[2023-01-21] MEDS: QUEtiapine 25 MG TAB PO SCH (20:41)
[2023-01-21] MEDS: Atorvastatin Calcium 20 MG TAB PO SCH (20:41)
[2023-01-22 04:20] LABS: #Eosinphils 0.4 thou/uL (0.0-0.7); #Monocytes 1.2 thou/uL (0.11-0.59); #Neutrophils 9.1 thou/uL (1.40-6.50); %Basophils 0.2 % (0.0-1.0); %Eosinophils 2.8 % (0.0-10.0); %Monocytes 9.2 % (0.0-10.0); %Neutrophils 72.2 % (42.0-75.0); Hematocrit 37.7 % (42.0-52.0); Hemoglobin 12.4 g/dL (14.0-18.0); Mean Corpuscular HGB CONC 32.9 g/dL (32.0-36.0); Mean Corpuscular Hemoglobin 29.4 pg (27.0-31.0); Mean Corpuscular Volume 89.3 fl (78.0-98.0); Mean Platelet Volume 10.4 fL (7.4-10.4); Platelet Count 269 10x3/uL (130-400); RBC Distribution Width 14.1 % (11.5-14.5); Red Blood Cell (RBC) Count 4.22 mill/uL (4.70-6.10); White Blood Cell (WBC) Count 12.6 10x3/uL (4.8-10.8)
[2023-01-22 04:55] LABS: Anion Gap 15 mmol/L (10-20); BUN (Urea Nitrogen) 48 mg/dL (8.9-20.6); Calc. Creatinine Clearance 106 mL/min (70-130); Calcium 8.6 mg/dL (7.8-10.44); Carbon Dioxide 23 mmol/L (22-29); Chloride 102 mmol/L (98-107); Estimated GFR 36; Glucose 82 mg/dL (70-105); Potassium 3.5 mmol/L (3.5-5.1); Sodium 136 mmol/L (136-145)
[2023-01-22] MEDS: Budesonide 0.5 MG/2 ML NEB INH SCH ×2 (07:40→19:12)
[2023-01-22] MEDS: Amlodipine 10 MG TAB PO SCH (08:51)
[2023-01-22] MEDS: Spironolactone 25 MG TAB PO SCH (08:51)
[2023-01-22] MEDS: Ranolazine 500 MG ER.TAB PO SCH ×2 (08:51→21:12)
[2023-01-22] MEDS: Ezetimibe 10 MG TAB PO SCH (08:51)
[2023-01-22] MEDS: Clopidogrel Bisulfate 75 MG TAB PO SCH (08:51)
[2023-01-22] MEDS: Venlafaxine 75 MG TAB PO SCH (08:51)
[2023-01-22] MEDS: hydrALAZINE 25 MG TAB PO SCH ×4 (08:52→21:11)
[2023-01-22] MEDS: BuPROPion XL 150 MG ER.TAB PO SCH (08:52)
[2023-01-22] MEDS: Gabapentin 300 MG CAP PO SCH ×3 (08:52→21:11)
[2023-01-22] MEDS: Enoxaparin 40 MG (0.4 mL) SYRINGE SC SCH ×2 (08:53→21:12)
[2023-01-22] MEDS: Cefepime 2 GM in Sodium Chloride 0.9% 100 ML IVPB SCH ×2 (08:53→21:12)
[2023-01-22] MEDS: Empagliflozin 10 MG TAB PO SCH (08:53)
[2023-01-22] MEDS: Furosemide 40 MG (4 mL) VIAL SLOW IVP SCH ×3 (12:24→21:12)
[2023-01-22] MEDS ORDERED: cloNIDine 0.1 MG TAB PO PRN (16:51)
[2023-01-22] MEDS ORDERED: hydrALAZINE 25 MG TAB PO SCH (17:00)
[2023-01-22] MEDS ORDERED: Furosemide 40 MG (4 mL) VIAL SLOW IVP SCH (18:00)
[2023-01-22] MEDS: Atorvastatin Calcium 20 MG TAB PO SCH (21:12)
[2023-01-22] MEDS: QUEtiapine 25 MG TAB PO SCH (21:12)
[2023-01-23 04:39] LABS: #Eosinphils 0.3 thou/uL (0.0-0.7); #Monocytes 1.3 thou/uL (0.11-0.59); #Neutrophils 9.1 thou/uL (1.40-6.50); %Basophils 0.2 % (0.0-1.0); %Eosinophils 2.2 % (0.0-10.0); %Lymphocytes 13.7 % (21.0-51.0); %Monocytes 10.2 % (0.0-10.0); %Neutrophils 73.1 % (42.0-75.0); Hematocrit 36.9 % (42.0-52.0); Hemoglobin 12.5 g/dL (14.0-18.0); Mean Corpuscular HGB CONC 33.9 g/dL (32.0-36.0); Mean Corpuscular Hemoglobin 30.1 pg (27.0-31.0); Mean Corpuscular Volume 88.9 fl (78.0-98.0); Mean Platelet Volume 10.9 fL (7.4-10.4); Platelet Count 252 10x3/uL (130-400); Red Blood Cell (RBC) Count 4.15 mill/uL (4.70-6.10); White Blood Cell (WBC) Count 12.4 10x3/uL (4.8-10.8)
[2023-01-23 05:12] LABS: Anion Gap 16 mmol/L (10-20); BUN (Urea Nitrogen) 57 mg/dL (8.9-20.6); Calc. Creatinine Clearance 92 mL/min (70-130); Calcium 8.4 mg/dL (7.8-10.44); Carbon Dioxide 19 mmol/L (22-29); Chloride 104 mmol/L (98-107); Estimated GFR 31; Glucose 85 mg/dL (70-105); Potassium 3.6 mmol/L (3.5-5.1); Sodium 135 mmol/L (136-145)
[2023-01-23] MEDS: Budesonide 0.5 MG/2 ML NEB INH SCH ×2 (07:48→20:48)
[2023-01-23] MEDS: Gabapentin 300 MG CAP PO SCH ×3 (09:01→22:21)
[2023-01-23] MEDS: Ranolazine 500 MG ER.TAB PO SCH ×2 (09:02→20:17)
[2023-01-23] MEDS: Clopidogrel Bisulfate 75 MG TAB PO SCH (09:02)
[2023-01-23] MEDS: Amlodipine 10 MG TAB PO SCH (09:02)
[2023-01-23] MEDS: Venlafaxine 75 MG TAB PO SCH (09:02)
[2023-01-23] MEDS: BuPROPion XL 150 MG ER.TAB PO SCH (09:02)
[2023-01-23] MEDS: Spironolactone 25 MG TAB PO SCH (09:02)
[2023-01-23] MEDS: Empagliflozin 10 MG TAB PO SCH (09:05)
[2023-01-23] MEDS: Furosemide 40 MG (4 mL) VIAL SLOW IVP SCH ×3 (09:05→20:17)
[2023-01-23] MEDS: Ezetimibe 10 MG TAB PO SCH (09:05)
[2023-01-23] MEDS: Cefepime 1 GM in Sodium Chloride 0.9% 100 ML IVPB SCH ×2 (09:05→20:16)
[2023-01-23] MEDS: Enoxaparin 40 MG (0.4 mL) SYRINGE SC SCH ×2 (09:05→20:17)
[2023-01-23] MEDS: hydrALAZINE 25 MG TAB PO SCH ×3 (09:18→22:22)
[2023-01-23] MEDS: Ondansetron PF 4 MG/2 ML Vial IVP PRN (14:15)
[2023-01-23] MEDS: Atorvastatin Calcium 20 MG TAB PO SCH (20:17)
[2023-01-23] MEDS: Ipratropium/Albuterol 3 ML NEB NEB PRN (20:48)
[2023-01-23] MEDS: QUEtiapine 25 MG TAB PO SCH (22:21)
[2023-01-24 04:28] LABS: #Eosinphils 0.2 thou/uL (0.0-0.7); #Monocytes 1.2 thou/uL (0.11-0.59); #Neutrophils 9.5 thou/uL (1.40-6.50); %Basophils 0.2 % (0.0-1.0); %Eosinophils 1.8 % (0.0-10.0); %Monocytes 9.6 % (0.0-10.0); %Neutrophils 76.8 % (42.0-75.0); Hematocrit 36.6 % (42.0-52.0); Hemoglobin 12.1 g/dL (14.0-18.0); Mean Corpuscular HGB CONC 33.1 g/dL (32.0-36.0); Mean Corpuscular Hemoglobin 29.7 pg (27.0-31.0); Mean Corpuscular Volume 89.9 fl (78.0-98.0); Mean Platelet Volume 10.9 fL (7.4-10.4); Platelet Count 262 10x3/uL (130-400); RBC Distribution Width 14.2 % (11.5-14.5); Red Blood Cell (RBC) Count 4.07 mill/uL (4.70-6.10); White Blood Cell (WBC) Count 12.4 10x3/uL (4.8-10.8)
[2023-01-24 04:55] LABS: Anion Gap 16 mmol/L (10-20); BUN (Urea Nitrogen) 68 mg/dL (8.9-20.6); Calc. Creatinine Clearance 83 mL/min (70-130); Calcium 8.4 mg/dL (7.8-10.44); Carbon Dioxide 20 mmol/L (22-29); Chloride 102 mmol/L (98-107); Estimated GFR 27; Glucose 79 mg/dL (70-105); Potassium 3.9 mmol/L (3.5-5.1); Sodium 134 mmol/L (136-145)
[2023-01-24] MEDS: Budesonide 0.5 MG/2 ML NEB INH SCH ×2 (06:41→18:45)
[2023-01-24] MEDS: Spironolactone 25 MG TAB PO SCH (08:51)
[2023-01-24] MEDS: Cefepime 1 GM in Sodium Chloride 0.9% 100 ML IVPB SCH ×2 (10:22→20:40)
[2023-01-24] MEDS: Enoxaparin 40 MG (0.4 mL) SYRINGE SC SCH ×2 (10:22→20:41)
[2023-01-24] MEDS: Furosemide 40 MG (4 mL) VIAL SLOW IVP SCH ×4 (10:22→20:39)
[2023-01-24] MEDS: BuPROPion XL 150 MG ER.TAB PO SCH (10:23)
[2023-01-24] MEDS: Amlodipine 10 MG TAB PO SCH (10:23)
[2023-01-24] MEDS: Empagliflozin 10 MG TAB PO SCH (10:23)
[2023-01-24] MEDS: Ezetimibe 10 MG TAB PO SCH (10:23)
[2023-01-24] MEDS: Clopidogrel Bisulfate 75 MG TAB PO SCH (10:23)
[2023-01-24] MEDS: Gabapentin 300 MG CAP PO SCH ×3 (10:23→20:39)
[2023-01-24] MEDS: Venlafaxine 75 MG TAB PO SCH (10:24)
[2023-01-24] MEDS: hydrALAZINE 25 MG TAB PO SCH ×3 (10:24→20:40)
[2023-01-24] MEDS: QUEtiapine 25 MG TAB PO SCH (20:39)
[2023-01-24] MEDS: Atorvastatin Calcium 20 MG TAB PO SCH (20:40)
[2023-01-24] MEDS: methylPREDNISolone Sod Succ 40 MG VIAL IVP SCH (20:41)
[2023-01-25 04:34] LABS: #Monocytes 0.2 thou/uL (0.11-0.59); #Neutrophils 7.3 thou/uL (1.40-6.50); %Basophils 0.1 % (0.0-1.0); %Eosinophils 0.1 % (0.0-10.0); %Lymphocytes 5.6 % (21.0-51.0); %Monocytes 2.4 % (0.0-10.0); %Neutrophils 90.9 % (42.0-75.0); Hematocrit 39.5 % (42.0-52.0); Hemoglobin 13.1 g/dL (14.0-18.0); Mean Corpuscular HGB CONC 33.2 g/dL (32.0-36.0); Mean Corpuscular Hemoglobin 29.1 pg (27.0-31.0); Mean Corpuscular Volume 87.8 fl (78.0-98.0); Mean Platelet Volume 11.4 fL (7.4-10.4); Platelet Count 266 10x3/uL (130-400); RBC Distribution Width 14.5 % (11.5-14.5); White Blood Cell (WBC) Count 8.1 10x3/uL (4.8-10.8)
[2023-01-25 05:02] LABS: Anion Gap 18 mmol/L (10-20); BUN (Urea Nitrogen) 80 mg/dL (8.9-20.6); Calc. Creatinine Clearance 68 mL/min (70-130); Calcium 8.8 mg/dL (7.8-10.44); Carbon Dioxide 19 mmol/L (22-29); Chloride 101 mmol/L (98-107); Estimated GFR 22; Glucose 108 mg/dL (70-105); Sodium 134 mmol/L (136-145)
[2023-01-25] MEDS: Budesonide 0.5 MG/2 ML NEB INH SCH ×2 (07:38→19:33)
[2023-01-25] MEDS ORDERED: Metolazone 5 MG TAB PO SCH (09:00)
[2023-01-25] MEDS: Amlodipine 10 MG TAB PO SCH (09:42)
[2023-01-25] MEDS: BuPROPion XL 150 MG ER.TAB PO SCH (09:42)
[2023-01-25] MEDS: hydrALAZINE 25 MG TAB PO SCH ×3 (09:42→21:10)
[2023-01-25] MEDS: Gabapentin 300 MG CAP PO SCH ×3 (09:43→21:10)
[2023-01-25] MEDS: Empagliflozin 10 MG TAB PO SCH (09:43)
[2023-01-25] MEDS: Venlafaxine 75 MG TAB PO SCH (09:43)
[2023-01-25] MEDS: Clopidogrel Bisulfate 75 MG TAB PO SCH (09:43)
[2023-01-25] MEDS: Cefepime 1 GM in Sodium Chloride 0.9% 100 ML IVPB SCH ×2 (09:43→21:12)
[2023-01-25] MEDS: Ezetimibe 10 MG TAB PO SCH (09:43)
[2023-01-25] MEDS: Enoxaparin 40 MG (0.4 mL) SYRINGE SC SCH ×2 (09:44→21:11)
[2023-01-25] MEDS: methylPREDNISolone Sod Succ 40 MG VIAL IVP SCH ×2 (09:44→21:12)
[2023-01-25] MEDS: Furosemide 40 MG (4 mL) VIAL SLOW IVP SCH ×4 (09:44→17:00)
[2023-01-25 10:52] LABS: Phosphorus 6.8 mg/dL (2.3-4.7)
[2023-01-25] MEDS ORDERED: Furosemide 100 MG (10 mL) VIAL SLOW IVP SCH (11:45)
[2023-01-25 13:13] LABS: Creatinine, Urine 107.14 mg/dL (63-166)
[2023-01-25] MEDS ORDERED: Furosemide 40 MG (4 mL) VIAL ONE (16:09)
[2023-01-25] MEDS: Ipratropium/Albuterol 3 ML NEB NEB PRN (19:36)
[2023-01-25] MEDS: Furosemide 100 MG (10 mL) VIAL SLOW IVP SCH (21:10)
[2023-01-25] MEDS: QUEtiapine 25 MG TAB PO SCH (21:12)
[2023-01-25] MEDS: Atorvastatin Calcium 20 MG TAB PO SCH (21:12)
[2023-01-26] MEDS: Budesonide 0.5 MG/2 ML NEB INH SCH ×2 (07:19→18:37)
[2023-01-26] MEDS: Venlafaxine 75 MG TAB PO SCH (08:13)
[2023-01-26] MEDS: Ezetimibe 10 MG TAB PO SCH (08:13)
[2023-01-26] MEDS: BuPROPion XL 150 MG ER.TAB PO SCH (08:13)
[2023-01-26] MEDS: Furosemide 100 MG (10 mL) VIAL SLOW IVP SCH ×3 (08:14→21:27)
[2023-01-26] MEDS: Gabapentin 300 MG CAP PO SCH ×3 (08:14→21:25)
[2023-01-26] MEDS: hydrALAZINE 25 MG TAB PO SCH ×3 (08:14→21:26)
[2023-01-26] MEDS: Amlodipine 10 MG TAB PO SCH (08:15)
[2023-01-26] MEDS: Clopidogrel Bisulfate 75 MG TAB PO SCH (08:16)
[2023-01-26] MEDS: Cefepime 1 GM in Sodium Chloride 0.9% 100 ML IVPB SCH ×2 (08:16→21:27)
[2023-01-26] MEDS: Empagliflozin 10 MG TAB PO SCH (08:16)
[2023-01-26] MEDS: Enoxaparin 40 MG (0.4 mL) SYRINGE SC SCH ×2 (08:16→21:27)
[2023-01-26] MEDS: methylPREDNISolone Sod Succ 40 MG VIAL IVP SCH ×2 (08:16→21:28)
[2023-01-26 08:49] LABS: #Monocytes 0.6 thou/uL (0.11-0.59); #Neutrophils 7.1 thou/uL (1.40-6.50); %Lymphocytes 8.1 % (21.0-51.0); %Monocytes 7.4 % (0.0-10.0); %Neutrophils 83.8 % (42.0-75.0); Hematocrit 33.5 % (42.0-52.0); Hemoglobin 11.2 g/dL (14.0-18.0); Mean Corpuscular HGB CONC 33.4 g/dL (32.0-36.0); Mean Corpuscular Hemoglobin 29.7 pg (27.0-31.0); Mean Corpuscular Volume 88.9 fl (78.0-98.0); Mean Platelet Volume 11.4 fL (7.4-10.4); Platelet Count 271 10x3/uL (130-400); RBC Distribution Width 14.5 % (11.5-14.5); Red Blood Cell (RBC) Count 3.77 mill/uL (4.70-6.10); White Blood Cell (WBC) Count 8.4 10x3/uL (4.8-10.8)
[2023-01-26 09:10] LABS: Anion Gap 20 mmol/L (10-20); BUN (Urea Nitrogen) 101 mg/dL (8.9-20.6); Calc. Creatinine Clearance 59 mL/min (70-130); Calcium 8.6 mg/dL (7.8-10.44); Carbon Dioxide 18 mmol/L (22-29); Chloride 98 mmol/L (98-107); Estimated GFR 18; Glucose 148 mg/dL (70-105); Potassium 3.7 mmol/L (3.5-5.1); Sodium 132 mmol/L (136-145)
[2023-01-26] MEDS ORDERED: Metolazone 5 MG TAB PO SCH (12:15)
[2023-01-26] MEDS: Ipratropium/Albuterol 3 ML NEB NEB PRN (18:36)
[2023-01-26] MEDS: Atorvastatin Calcium 20 MG TAB PO SCH (21:26)
[2023-01-26] MEDS: QUEtiapine 25 MG TAB PO SCH (21:26)
[2023-01-27 05:20] LABS: #Monocytes 0.7 thou/uL (0.11-0.59); #Neutrophils 8.1 thou/uL (1.40-6.50); %Basophils 0.1 % (0.0-1.0); %Lymphocytes 6.7 % (21.0-51.0); %Monocytes 7.7 % (0.0-10.0); %Neutrophils 84.3 % (42.0-75.0); Hematocrit 32.9 % (42.0-52.0); Hemoglobin 11.1 g/dL (14.0-18.0); Mean Corpuscular HGB CONC 33.7 g/dL (32.0-36.0); Mean Corpuscular Hemoglobin 29.4 pg (27.0-31.0); Mean Corpuscular Volume 87.3 fl (78.0-98.0); Mean Platelet Volume 11.8 fL (7.4-10.4); Platelet Count 258 10x3/uL (130-400); RBC Distribution Width 14.3 % (11.5-14.5); Red Blood Cell (RBC) Count 3.77 mill/uL (4.70-6.10); White Blood Cell (WBC) Count 9.5 10x3/uL (4.8-10.8)
[2023-01-27 05:37] LABS: Anion Gap 19 mmol/L (10-20); BUN (Urea Nitrogen) 114 mg/dL (8.9-20.6); Calc. Creatinine Clearance 56 mL/min (70-130); Calcium 8.2 mg/dL (7.8-10.44); Carbon Dioxide 18 mmol/L (22-29); Chloride 97 mmol/L (98-107); Estimated GFR 17; Glucose 142 mg/dL (70-105); Potassium 3.5 mmol/L (3.5-5.1); Sodium 130 mmol/L (136-145)
[2023-01-27] MEDS: Budesonide 0.5 MG/2 ML NEB INH SCH ×2 (07:44→19:34)
[2023-01-27] MEDS: Gabapentin 300 MG CAP PO SCH ×3 (08:38→21:56)
[2023-01-27] MEDS: Enoxaparin 40 MG (0.4 mL) SYRINGE SC SCH ×2 (08:38→21:56)
[2023-01-27] MEDS: BuPROPion XL 150 MG ER.TAB PO SCH (08:38)
[2023-01-27] MEDS: hydrALAZINE 25 MG TAB PO SCH ×3 (08:38→21:56)
[2023-01-27] MEDS: methylPREDNISolone Sod Succ 40 MG VIAL IVP SCH (08:39)
[2023-01-27] MEDS: Clopidogrel Bisulfate 75 MG TAB PO SCH (08:39)
[2023-01-27] MEDS: Venlafaxine 75 MG TAB PO SCH (08:39)
[2023-01-27] MEDS: Cefepime 1 GM in Sodium Chloride 0.9% 100 ML IVPB SCH ×2 (08:39→21:53)
[2023-01-27] MEDS: Empagliflozin 10 MG TAB PO SCH (08:39)
[2023-01-27] MEDS: Amlodipine 10 MG TAB PO SCH (08:39)
[2023-01-27] MEDS: Furosemide 100 MG (10 mL) VIAL SLOW IVP SCH ×3 (08:39→21:58)
[2023-01-27] MEDS ORDERED: Heparin 10,000 UNITS/ 10 ML VIAL ONE ×2 (08:56→14:48)
[2023-01-27] MEDS: Acetaminophen 325 MG TAB PO PRN (09:17)
[2023-01-27] MEDS: Ezetimibe 10 MG TAB PO SCH (09:17)
[2023-01-27 11:34] LABS: HBSAg Index 0.17 S/CO (0-0.99); Hep B Core Total Ab Non-Reactive (NonReactive); Hep B Core Total Index 0.07 S/CO (0-0.79); Hep B Surf Ag Non-Reactive S/CO (NonReactive)
[2023-01-27 11:35] LABS: HBSAB Concentration Less than 8.00 mIU/mL; Hep B Surf AB Non-Reactive (NonReactive); Hep C IgG Ab Non-Reactive S/CO (NonReactive); Hep C Index 0.06 S/CO (0-0.79)
[2023-01-27] MEDS ORDERED: EPINEPHrine 1 MG/ML VIAL ONE (14:48)
[2023-01-27] MEDS ORDERED: Bupivacaine 0.25% HCL 30 ML VIAL ONE (14:49)
[2023-01-27] MEDS ORDERED: Midazolam HCl 2 mg/2 ml Vial ONE (15:09)
[2023-01-27] MEDS ORDERED: Fentanyl 250 MCG/5 ML VIAL ONE (15:09)
[2023-01-27] MEDS ORDERED: PROPOFOL 20 ML ONE (15:17)
[2023-01-27] MEDS: Atorvastatin Calcium 20 MG TAB PO SCH (21:57)
[2023-01-27] MEDS: QUEtiapine 25 MG TAB PO SCH (21:57)
[2023-01-28 04:36] LABS: #Monocytes 1.3 thou/uL (0.11-0.59); #Neutrophils 11.2 thou/uL (1.40-6.50); %Basophils 0.1 % (0.0-1.0); %Eosinophils 0.1 % (0.0-10.0); %Lymphocytes 11.5 % (21.0-51.0); %Neutrophils 77.9 % (42.0-75.0); Hematocrit 31.4 % (42.0-52.0); Hemoglobin 10.5 g/dL (14.0-18.0); Mean Corpuscular HGB CONC 33.4 g/dL (32.0-36.0); Mean Corpuscular Hemoglobin 29.5 pg (27.0-31.0); Mean Corpuscular Volume 88.2 fl (78.0-98.0); Mean Platelet Volume 11.6 fL (7.4-10.4); Platelet Count 259 10x3/uL (130-400); RBC Distribution Width 14.3 % (11.5-14.5); Red Blood Cell (RBC) Count 3.56 mill/uL (4.70-6.10); White Blood Cell (WBC) Count 14.4 10x3/uL (4.8-10.8)
[2023-01-28 05:40] LABS: Anion Gap 17 mmol/L (10-20); BUN (Urea Nitrogen) 98 mg/dL (8.9-20.6); Calc. Creatinine Clearance 63 mL/min (70-130); Calcium 8.3 mg/dL (7.8-10.44); Carbon Dioxide 21 mmol/L (22-29); Chloride 98 mmol/L (98-107); Estimated GFR 19; Glucose 113 mg/dL (70-105); Potassium 3.2 mmol/L (3.5-5.1); Sodium 133 mmol/L (136-145)
[2023-01-28] MEDS: Budesonide 0.5 MG/2 ML NEB INH SCH (07:45)
[2023-01-28] MEDS: Ipratropium/Albuterol 3 ML NEB NEB PRN (07:48)
[2023-01-28] MEDS ORDERED: Heparin 10,000 UNITS/ 10 ML VIAL ONE (09:20)
[2023-01-28] MEDS: Clopidogrel Bisulfate 75 MG TAB PO SCH (09:26)
[2023-01-28] MEDS: Gabapentin 300 MG CAP PO SCH ×3 (09:26→21:02)
[2023-01-28] MEDS: hydrALAZINE 25 MG TAB PO SCH ×3 (09:26→21:01)
[2023-01-28] MEDS: Ezetimibe 10 MG TAB PO SCH (09:27)
[2023-01-28] MEDS: Venlafaxine 75 MG TAB PO SCH (09:27)
[2023-01-28] MEDS: Acetaminophen 325 MG TAB PO PRN (09:27)
[2023-01-28] MEDS: BuPROPion XL 150 MG ER.TAB PO SCH (09:27)
[2023-01-28] MEDS: Amlodipine 10 MG TAB PO SCH (09:27)
[2023-01-28] MEDS: Cefepime 1 GM in Sodium Chloride 0.9% 100 ML IVPB SCH (09:28)
[2023-01-28] MEDS: Enoxaparin 40 MG (0.4 mL) SYRINGE SC SCH ×2 (09:28→21:02)
[2023-01-28] MEDS: Empagliflozin 10 MG TAB PO SCH (09:28)
[2023-01-28] MEDS: Atorvastatin Calcium 20 MG TAB PO SCH (21:01)
[2023-01-28] MEDS: QUEtiapine 25 MG TAB PO SCH (21:02)
[2023-01-28] MEDS: Ondansetron PF 4 MG/2 ML Vial IVP PRN (21:10)
[2023-01-29 04:21] LABS: #Eosinphils 0.1 thou/uL (0.0-0.7); #Monocytes 1.1 thou/uL (0.11-0.59); #Neutrophils 11.3 thou/uL (1.40-6.50); %Basophils 0.1 % (0.0-1.0); %Eosinophils 0.4 % (0.0-10.0); %Lymphocytes 11.7 % (21.0-51.0); %Monocytes 7.7 % (0.0-10.0); Hematocrit 29.8 % (42.0-52.0); Mean Corpuscular HGB CONC 33.6 g/dL (32.0-36.0); Mean Corpuscular Hemoglobin 29.7 pg (27.0-31.0); Mean Corpuscular Volume 88.4 fl (78.0-98.0); Mean Platelet Volume 11.4 fL (7.4-10.4); Platelet Count 222 10x3/uL (130-400); RBC Distribution Width 14.3 % (11.5-14.5); Red Blood Cell (RBC) Count 3.37 mill/uL (4.70-6.10); White Blood Cell (WBC) Count 14.2 10x3/uL (4.8-10.8)
[2023-01-29 07:41] LABS: Anion Gap 16 mmol/L (10-20); BUN (Urea Nitrogen) 74 mg/dL (8.9-20.6); Calc. Creatinine Clearance 75 mL/min (70-130); Calcium 8.2 mg/dL (7.8-10.44); Carbon Dioxide 23 mmol/L (22-29); Chloride 100 mmol/L (98-107); Estimated GFR 24; Glucose 86 mg/dL (70-105); Potassium 3.4 mmol/L (3.5-5.1); Sodium 136 mmol/L (136-145)
[2023-01-29] MEDS: Clopidogrel Bisulfate 75 MG TAB PO SCH (07:56)
[2023-01-29] MEDS: Ergocalciferol 1.25 MG(50,000 UNITS) CAP PO SCH (07:56)
[2023-01-29] MEDS: Amlodipine 10 MG TAB PO SCH (07:56)
[2023-01-29] MEDS: hydrALAZINE 25 MG TAB PO SCH ×3 (07:57→20:57)
[2023-01-29] MEDS: BuPROPion XL 150 MG ER.TAB PO SCH (07:57)
[2023-01-29] MEDS: Enoxaparin 40 MG (0.4 mL) SYRINGE SC SCH ×2 (07:58→20:56)
[2023-01-29] MEDS: Empagliflozin 10 MG TAB PO SCH (07:58)
[2023-01-29] MEDS: Gabapentin 300 MG CAP PO SCH ×3 (07:58→20:56)
[2023-01-29] MEDS: Venlafaxine 75 MG TAB PO SCH (07:58)
[2023-01-29] MEDS: Ezetimibe 10 MG TAB PO SCH (07:59)
[2023-01-29] MEDS: Ondansetron PF 4 MG/2 ML Vial IVP PRN ×2 (09:04→18:16)
[2023-01-29] MEDS ORDERED: Potassium Chloride 20 MEQ TAB PO SCH (10:00)
[2023-01-29] MEDS ORDERED: Heparin 10,000 UNITS/ 10 ML VIAL ONE (10:25)
[2023-01-29] MEDS: Atorvastatin Calcium 20 MG TAB PO SCH (20:57)
[2023-01-29] MEDS: QUEtiapine 25 MG TAB PO SCH (20:57)
[2023-01-30 04:39] LABS: Magnesium 2.4 mg/dL (1.6-2.6)
[2023-01-30] MEDS: hydrALAZINE 25 MG TAB PO SCH ×3 (08:19→20:12)
[2023-01-30] MEDS: Gabapentin 300 MG CAP PO SCH ×3 (08:19→20:11)
[2023-01-30] MEDS: Enoxaparin 40 MG (0.4 mL) SYRINGE SC SCH ×2 (08:19→20:12)
[2023-01-30] MEDS ORDERED: Heparin 10,000 UNITS/ 10 ML VIAL ONE (09:38)
[2023-01-30] MEDS: Venlafaxine 75 MG TAB PO SCH (12:53)
[2023-01-30] MEDS: Clopidogrel Bisulfate 75 MG TAB PO SCH (12:53)
[2023-01-30] MEDS: Ezetimibe 10 MG TAB PO SCH (12:53)
[2023-01-30] MEDS: Amlodipine 10 MG TAB PO SCH (12:53)
[2023-01-30] MEDS: Empagliflozin 10 MG TAB PO SCH (12:54)
[2023-01-30] MEDS: BuPROPion XL 150 MG ER.TAB PO SCH (12:54)
[2023-01-30] MEDS: Atorvastatin Calcium 20 MG TAB PO SCH (20:12)
[2023-01-30] MEDS: QUEtiapine 25 MG TAB PO SCH (20:12)
[2023-01-31 04:35] LABS: Anion Gap 17 mmol/L (10-20); BUN (Urea Nitrogen) 67 mg/dL (8.9-20.6); Calc. Creatinine Clearance 67 mL/min (70-130); Calcium 8.6 mg/dL (7.8-10.44); Carbon Dioxide 23 mmol/L (22-29); Chloride 99 mmol/L (98-107); Estimated GFR 22; Glucose 86 mg/dL (70-105); Potassium 3.8 mmol/L (3.5-5.1); Sodium 135 mmol/L (136-145)
[2023-01-31] MEDS ORDERED: Heparin 10,000 UNITS/ 10 ML VIAL ONE (08:54)
[2023-01-31] MEDS ORDERED: Potassium Chloride 20 MEQ TAB PO SCH (09:30)
[2023-01-31] MEDS: Venlafaxine 75 MG TAB PO SCH (10:36)
[2023-01-31] MEDS: Enoxaparin 40 MG (0.4 mL) SYRINGE SC SCH ×2 (10:37→21:06)
[2023-01-31] MEDS: Amlodipine 10 MG TAB PO SCH (10:37)
[2023-01-31] MEDS: Ezetimibe 10 MG TAB PO SCH (10:37)
[2023-01-31] MEDS: BuPROPion XL 150 MG ER.TAB PO SCH (10:37)
[2023-01-31] MEDS: Clopidogrel Bisulfate 75 MG TAB PO SCH (10:37)
[2023-01-31] MEDS: Gabapentin 300 MG CAP PO SCH ×3 (10:38→21:05)
[2023-01-31] MEDS: hydrALAZINE 25 MG TAB PO SCH ×3 (10:38→21:06)
[2023-01-31] MEDS ORDERED: Epoetin (ESRD) 10,000 UNITS/ML VIAL IVP SCH (12:00)
[2023-01-31] MEDS: QUEtiapine 25 MG TAB PO SCH (21:05)
[2023-01-31] MEDS: Atorvastatin Calcium 20 MG TAB PO SCH (21:05)
[2023-02-01 05:17] LABS: Anion Gap 17 mmol/L (10-20); BUN (Urea Nitrogen) 83 mg/dL (8.9-20.6); Calc. Creatinine Clearance 58 mL/min (70-130); Calcium 8.6 mg/dL (7.8-10.44); Carbon Dioxide 23 mmol/L (22-29); Chloride 99 mmol/L (98-107); Estimated GFR 19; Glucose 98 mg/dL (70-105); Sodium 135 mmol/L (136-145)
[2023-02-01] MEDS ORDERED: Heparin 10,000 UNITS/ 10 ML VIAL ONE (08:55)
[2023-02-01] MEDS: Gabapentin 300 MG CAP PO SCH ×3 (09:28→22:03)
[2023-02-01] MEDS: Clopidogrel Bisulfate 75 MG TAB PO SCH (09:29)
[2023-02-01] MEDS: Ezetimibe 10 MG TAB PO SCH (09:29)
[2023-02-01] MEDS: Enoxaparin 40 MG (0.4 mL) SYRINGE SC SCH ×2 (09:29→22:04)
[2023-02-01] MEDS: Amlodipine 10 MG TAB PO SCH (09:29)
[2023-02-01] MEDS: Venlafaxine 75 MG TAB PO SCH (09:30)
[2023-02-01] MEDS: BuPROPion XL 150 MG ER.TAB PO SCH (09:30)
[2023-02-01] MEDS: hydrALAZINE 25 MG TAB PO SCH ×3 (09:30→22:04)
[2023-02-01] MEDS: Bisacodyl 5 MG TAB PO PRN (09:35)
[2023-02-01] MEDS: Sevelamer Carbonate 800 MG TAB PO SCH ×2 (12:49→17:02)
[2023-02-01] MEDS ORDERED: hydrALAZINE 20 MG/ML VIAL SLOW IVP PRN (17:29)
[2023-02-01] MEDS: Atorvastatin Calcium 20 MG TAB PO SCH (22:04)
[2023-02-01] MEDS: QUEtiapine 25 MG TAB PO SCH (22:04)
[2023-02-02 04:15] LABS: #Eosinphils 0.4 thou/uL (0.0-0.7); #Monocytes 1.1 thou/uL (0.11-0.59); #Neutrophils 6.2 thou/uL (1.40-6.50); %Basophils 0.3 % (0.0-1.0); %Eosinophils 4.5 % (0.0-10.0); %Lymphocytes 19.4 % (21.0-51.0); %Monocytes 11.2 % (0.0-10.0); %Neutrophils 63.7 % (42.0-75.0); Hematocrit 31.9 % (42.0-52.0); Hemoglobin 10.3 g/dL (14.0-18.0); Mean Corpuscular HGB CONC 32.3 g/dL (32.0-36.0); Mean Corpuscular Hemoglobin 29.4 pg (27.0-31.0); Mean Corpuscular Volume 91.1 fl (78.0-98.0); Mean Platelet Volume 11.5 fL (7.4-10.4); Platelet Count 274 10x3/uL (130-400); RBC Distribution Width 14.4 % (11.5-14.5); White Blood Cell (WBC) Count 9.8 10x3/uL (4.8-10.8)
[2023-02-02 04:38] LABS: Phosphorus 5.9 mg/dL (2.3-4.7)
[2023-02-02 04:39] LABS: Anion Gap 17 mmol/L (10-20); BUN (Urea Nitrogen) 53 mg/dL (8.9-20.6); Calc. Creatinine Clearance 77 mL/min (70-130); Calcium 8.6 mg/dL (7.8-10.44); Carbon Dioxide 24 mmol/L (22-29); Chloride 99 mmol/L (98-107); Estimated GFR 27; Glucose 86 mg/dL (70-105); Potassium 3.8 mmol/L (3.5-5.1); Sodium 136 mmol/L (136-145)
[2023-02-02] MEDS ORDERED: Heparin 10,000 UNITS/ 10 ML VIAL ONE (08:58)
[2023-02-02] MEDS: Amlodipine 10 MG TAB PO SCH (09:01)
[2023-02-02] MEDS: BuPROPion XL 150 MG ER.TAB PO SCH (09:01)
[2023-02-02] MEDS: Sevelamer Carbonate 800 MG TAB PO SCH ×3 (09:01→16:50)
[2023-02-02] MEDS: Ezetimibe 10 MG TAB PO SCH (09:01)
[2023-02-02] MEDS: Venlafaxine 75 MG TAB PO SCH (09:01)
[2023-02-02] MEDS: hydrALAZINE 25 MG TAB PO SCH ×3 (09:02→22:56)
[2023-02-02] MEDS: Gabapentin 300 MG CAP PO SCH ×3 (09:02→22:57)
[2023-02-02] MEDS: Polyethylene Glycol 3350 17 GM Packet PO PRN (09:03)
[2023-02-02] MEDS: Clopidogrel Bisulfate 75 MG TAB PO SCH (09:03)
[2023-02-02] MEDS: Enoxaparin 40 MG (0.4 mL) SYRINGE SC SCH ×2 (09:03→22:56)
[2023-02-02] MEDS: Bisacodyl 5 MG TAB PO PRN (09:03)
[2023-02-02] MEDS ORDERED: Tuberculin PPD 0.1 ML VIAL I-DERMAL SCH ×2 (10:00→10:15)
[2023-02-02] MEDS: EPOETIN ALFA-EPBX 10,000 UNITS/ML VIAL SC SCH (15:10)
[2023-02-02] MEDS: Ondansetron PF 4 MG/2 ML Vial IVP PRN (15:50)
[2023-02-02] MEDS ORDERED: Sterile Water 10 ML VIAL IVP SCH (16:30)
[2023-02-02] MEDS ORDERED: Activase 2 MG VIAL CATH SCH (16:30)
[2023-02-02] MEDS: ALPRAZolam 0.5 MG TAB PO PRN ×2 (16:46→23:00)
[2023-02-02] MEDS: Atorvastatin Calcium 20 MG TAB PO SCH (22:57)
[2023-02-02] MEDS: NIFEdipine XL 30 MG ER.TAB PO SCH (22:57)
[2023-02-02] MEDS: QUEtiapine 25 MG TAB PO SCH (22:57)
[2023-02-03 05:18] LABS: #Eosinphils 0.4 thou/uL (0.0-0.7); #Monocytes 1.1 thou/uL (0.11-0.59); #Neutrophils 6.2 thou/uL (1.40-6.50); %Basophils 0.3 % (0.0-1.0); %Eosinophils 3.7 % (0.0-10.0); %Lymphocytes 19.1 % (21.0-51.0); %Neutrophils 64.9 % (42.0-75.0); Hematocrit 32.8 % (42.0-52.0); Hemoglobin 10.6 g/dL (14.0-18.0); Mean Corpuscular HGB CONC 32.3 g/dL (32.0-36.0); Mean Corpuscular Hemoglobin 29.4 pg (27.0-31.0); Mean Corpuscular Volume 90.9 fl (78.0-98.0); Mean Platelet Volume 11.9 fL (7.4-10.4); Platelet Count 293 10x3/uL (130-400); RBC Distribution Width 14.2 % (11.5-14.5); Red Blood Cell (RBC) Count 3.61 mill/uL (4.70-6.10); White Blood Cell (WBC) Count 9.5 10x3/uL (4.8-10.8)
[2023-02-03 05:47] LABS: Anion Gap 14 mmol/L (10-20); BUN (Urea Nitrogen) 34 mg/dL (8.9-20.6); Calc. Creatinine Clearance 91 mL/min (70-130); Calcium 8.8 mg/dL (7.8-10.44); Carbon Dioxide 27 mmol/L (22-29); Chloride 99 mmol/L (98-107); Estimated GFR 34; Glucose 86 mg/dL (70-105); Potassium 3.7 mmol/L (3.5-5.1); Sodium 136 mmol/L (136-145)
[2023-02-03] MEDS: Gabapentin 300 MG CAP PO SCH ×3 (08:27→20:43)
[2023-02-03] MEDS: Sevelamer Carbonate 800 MG TAB PO SCH ×3 (08:27→16:46)
[2023-02-03] MEDS: hydrALAZINE 25 MG TAB PO SCH ×3 (08:27→20:43)
[2023-02-03] MEDS: NIFEdipine XL 30 MG ER.TAB PO SCH (08:27)
[2023-02-03] MEDS: Venlafaxine 75 MG TAB PO SCH (08:28)
[2023-02-03] MEDS: BuPROPion XL 150 MG ER.TAB PO SCH (08:28)
[2023-02-03] MEDS: Ezetimibe 10 MG TAB PO SCH (08:28)
[2023-02-03] MEDS: Enoxaparin 40 MG (0.4 mL) SYRINGE SC SCH ×2 (08:28→20:41)
[2023-02-03] MEDS: Clopidogrel Bisulfate 75 MG TAB PO SCH (08:28)
[2023-02-03] MEDS: ALPRAZolam 0.5 MG TAB PO PRN ×2 (12:22→20:47)
[2023-02-03] MEDS: EPOETIN ALFA-EPBX 10,000 UNITS/ML VIAL IVP SCH (14:30)
[2023-02-03] MEDS: NIFEdipine XL 60 MG ER.TAB PO SCH (20:42)
[2023-02-03] MEDS: Atorvastatin Calcium 20 MG TAB PO SCH (20:43)
[2023-02-03] MEDS: QUEtiapine 25 MG TAB PO SCH (20:43)
[2023-02-04 05:36] LABS: Anion Gap 15 mmol/L (10-20); BUN (Urea Nitrogen) 47 mg/dL (8.9-20.6); Calc. Creatinine Clearance 76 mL/min (70-130); Calcium 8.8 mg/dL (7.8-10.44); Carbon Dioxide 26 mmol/L (22-29); Chloride 99 mmol/L (98-107); Estimated GFR 28; Glucose 91 mg/dL (70-105); Potassium 3.5 mmol/L (3.5-5.1); Sodium 136 mmol/L (136-145)
[2023-02-04] MEDS ORDERED: Lidocaine 2% PF 5 ML VIAL ONE ×3 (07:04→08:09)
[2023-02-04] MEDS ORDERED: PROPOFOL 20 ML ONE (07:04)
[2023-02-04] MEDS ORDERED: fentaNYL 50 mcg/mL 1 mL Vial ONE (07:05)
[2023-02-04] MEDS ORDERED: Heparin 10,000 UNITS/ 10 ML VIAL ONE ×2 (07:06→08:52)
[2023-02-04] MEDS ORDERED: Bupivacaine PF 0.5% 30 ML VIAL ONE (07:07)
[2023-02-04] MEDS ORDERED: EPINEPHrine 1 MG/ML VIAL ONE (07:07)
[2023-02-04] MEDS ORDERED: Ondansetron PF 4 MG/2 ML Vial ONE ×3 (07:32→08:09)
[2023-02-04] MEDS ORDERED: SUCCINYLCHOLINE/SOD CL,ISO/PF 200 MG/10 ML SYRINGE FS ONE ×2 (07:32→07:55)
[2023-02-04] MEDS ORDERED: CEFAZOLIN 2 GM VIAL ONE (07:48)
[2023-02-04] MEDS ORDERED: Sodium Chloride 0.9% 100 ML ONE (07:48)
[2023-02-04] MEDS ORDERED: Lidocaine 1% PF 5 ML VIAL ONE (07:55)
[2023-02-04] MEDS ORDERED: Rocuronium Bromide 10 MG/ML (10ML VIAL) ONE (07:55)
[2023-02-04] MEDS ORDERED: PROPOFOL 200 MG/20 ML VIAL ONE (07:55)
[2023-02-04] MEDS ORDERED: Glycopyrrolate 0.2 MG/ML 5 ML SYRINGE ONE (08:09)
[2023-02-04] MEDS ORDERED: Dexamethasone 4 mg/ml Vial ONE (08:09)
[2023-02-04] MEDS ORDERED: NEOSTIGMINE 3 MG/3 ML SYR 3 MG/3 ML SYRINGE ONE (08:09)
[2023-02-04] MEDS ORDERED: PHENYLEPHRINE-NS 100 MCG/ML 10 ML SYRINGE ONE (08:09)
[2023-02-04] MEDS ORDERED: CEFAZOLIN 1 GM VIAL ONE (08:09)
[2023-02-04] MEDS ORDERED: SUGAMMADEX SODIUM 200 MG/2 ML VIAL ONE (08:36)
[2023-02-04] MEDS: hydrALAZINE 25 MG TAB PO SCH ×3 (09:48→20:37)
[2023-02-04] MEDS: Gabapentin 300 MG CAP PO SCH ×3 (09:49→22:36)
[2023-02-04] MEDS: NIFEdipine XL 60 MG ER.TAB PO SCH ×2 (09:49→20:38)
[2023-02-04] MEDS: Ezetimibe 10 MG TAB PO SCH (09:50)
[2023-02-04] MEDS: BuPROPion XL 150 MG ER.TAB PO SCH (09:50)
[2023-02-04] MEDS: Sevelamer Carbonate 800 MG TAB PO SCH ×3 (09:50→16:28)
[2023-02-04] MEDS: Enoxaparin 40 MG (0.4 mL) SYRINGE SC SCH ×2 (09:50→20:40)
[2023-02-04] MEDS: Venlafaxine 75 MG TAB PO SCH (09:50)
[2023-02-04] MEDS: Clopidogrel Bisulfate 75 MG TAB PO SCH (09:50)
[2023-02-04] MEDS: Atorvastatin Calcium 20 MG TAB PO SCH (20:37)
[2023-02-04] MEDS: QUEtiapine 25 MG TAB PO SCH (20:38)
[2023-02-04] MEDS: ALPRAZolam 0.5 MG TAB PO PRN (20:40)
[2023-02-04] MEDS: Ondansetron PF 4 MG/2 ML Vial IVP PRN (20:40)
[2023-02-05] MEDS: Gabapentin 300 MG CAP PO SCH ×4 (03:07→21:00)
[2023-02-05 04:29] LABS: #Basophils 0.1 thou/uL (0.0-0.2); #Eosinphils 0.4 thou/uL (0.0-0.7); #Monocytes 1.2 thou/uL (0.11-0.59); #Neutrophils 6.9 thou/uL (1.40-6.50); %Basophils 0.9 % (0.0-1.0); %Eosinophils 4.2 % (0.0-10.0); %Lymphocytes 15.7 % (21.0-51.0); %Monocytes 11.4 % (0.0-10.0); %Neutrophils 66.7 % (42.0-75.0); Hemoglobin 11.6 g/dL (14.0-18.0); Mean Corpuscular HGB CONC 31.4 g/dL (32.0-36.0); Mean Corpuscular Volume 92.5 fl (78.0-98.0); Mean Platelet Volume 11.3 fL (7.4-10.4); Platelet Count 371 10x3/uL (130-400); RBC Distribution Width 14.6 % (11.5-14.5); White Blood Cell (WBC) Count 10.3 10x3/uL (4.8-10.8)
[2023-02-05 05:06] LABS: Anion Gap 17 mmol/L (10-20); BUN (Urea Nitrogen) 32 mg/dL (8.9-20.6); Calc. Creatinine Clearance 78 mL/min (70-130); Calcium 8.8 mg/dL (7.8-10.44); Carbon Dioxide 24 mmol/L (22-29); Chloride 96 mmol/L (98-107); Estimated GFR 28; Glucose 95 mg/dL (70-105); Potassium 3.5 mmol/L (3.5-5.1); Sodium 133 mmol/L (136-145)
[2023-02-05] MEDS: BuPROPion XL 150 MG ER.TAB PO SCH (08:40)
[2023-02-05] MEDS: Venlafaxine 75 MG TAB PO SCH (08:40)
[2023-02-05] MEDS: Enoxaparin 40 MG (0.4 mL) SYRINGE SC SCH ×2 (08:40→21:01)
[2023-02-05] MEDS: Ezetimibe 10 MG TAB PO SCH (08:40)
[2023-02-05] MEDS: Sevelamer Carbonate 800 MG TAB PO SCH ×3 (08:40→20:55)
[2023-02-05] MEDS: hydrALAZINE 25 MG TAB PO SCH ×3 (08:40→21:00)
[2023-02-05] MEDS: Ergocalciferol 1.25 MG(50,000 UNITS) CAP PO SCH (08:41)
[2023-02-05] MEDS: NIFEdipine XL 60 MG ER.TAB PO SCH ×2 (08:41→20:59)
[2023-02-05] MEDS: Clopidogrel Bisulfate 75 MG TAB PO SCH (08:41)
[2023-02-05] MEDS ORDERED: READ PPD TEST SITE PO SCH (09:00)
[2023-02-05] MEDS: EPOETIN ALFA-EPBX 10,000 UNITS/ML VIAL IVP SCH (17:21)
[2023-02-05] MEDS: Atorvastatin Calcium 20 MG TAB PO SCH (21:00)
[2023-02-05] MEDS: QUEtiapine 25 MG TAB PO SCH (21:00)
[2023-02-05] MEDS: ALPRAZolam 0.5 MG TAB PO PRN (21:01)
[2023-02-06 06:56] LABS: #Basophils 0.1 thou/uL (0.0-0.2); #Eosinphils 0.5 thou/uL (0.0-0.7); #Monocytes 1.3 thou/uL (0.11-0.59); #Neutrophils 7.9 thou/uL (1.40-6.50); %Basophils 0.7 % (0.0-1.0); %Eosinophils 3.8 % (0.0-10.0); %Lymphocytes 16.4 % (21.0-51.0); %Monocytes 11.1 % (0.0-10.0); %Neutrophils 66.5 % (42.0-75.0); Hematocrit 38.8 % (42.0-52.0); Hemoglobin 12.1 g/dL (14.0-18.0); Mean Corpuscular HGB CONC 31.2 g/dL (32.0-36.0); Mean Corpuscular Hemoglobin 29.4 pg (27.0-31.0); Mean Corpuscular Volume 94.2 fl (78.0-98.0); Mean Platelet Volume 10.9 fL (7.4-10.4); Platelet Count 426 10x3/uL (130-400); RBC Distribution Width 14.6 % (11.5-14.5); Red Blood Cell (RBC) Count 4.12 mill/uL (4.70-6.10)
[2023-02-06 08:29] LABS: Anion Gap 17 mmol/L (10-20); BUN (Urea Nitrogen) 28 mg/dL (8.9-20.6); Calc. Creatinine Clearance 62 mL/min (70-130); Calcium 9.3 mg/dL (7.8-10.44); Carbon Dioxide 25 mmol/L (22-29); Chloride 96 mmol/L (98-107); Estimated GFR 22; Glucose 94 mg/dL (70-105); Potassium 3.6 mmol/L (3.5-5.1); Sodium 134 mmol/L (136-145)
[2023-02-06] MEDS: Gabapentin 300 MG CAP PO SCH ×3 (08:32→21:41)
[2023-02-06] MEDS: BuPROPion XL 150 MG ER.TAB PO SCH (08:32)
[2023-02-06] MEDS: Ezetimibe 10 MG TAB PO SCH (08:32)
[2023-02-06] MEDS: Clopidogrel Bisulfate 75 MG TAB PO SCH (08:32)
[2023-02-06] MEDS: hydrALAZINE 25 MG TAB PO SCH ×3 (08:33→21:41)
[2023-02-06] MEDS: Venlafaxine 75 MG TAB PO SCH (08:33)
[2023-02-06] MEDS: Enoxaparin 40 MG (0.4 mL) SYRINGE SC SCH ×2 (08:33→21:41)
[2023-02-06] MEDS: NIFEdipine XL 60 MG ER.TAB PO SCH ×2 (08:33→21:40)
[2023-02-06] MEDS: Sevelamer Carbonate 800 MG TAB PO SCH ×3 (08:33→18:33)
[2023-02-06] MEDS: ALPRAZolam 0.5 MG TAB PO PRN ×2 (15:10→21:40)
[2023-02-06] MEDS: Atorvastatin Calcium 20 MG TAB PO SCH (21:40)
[2023-02-06] MEDS: QUEtiapine 25 MG TAB PO SCH (21:40)
[2023-02-06] MEDS: Acetaminophen 325 MG TAB PO PRN (21:42)
[2023-02-07 07:25] LABS: #Basophils 0.1 thou/uL (0.0-0.2); #Eosinphils 0.5 thou/uL (0.0-0.7); #Monocytes 1.7 thou/uL (0.11-0.59); #Neutrophils 6.6 thou/uL (1.40-6.50); %Basophils 0.8 % (0.0-1.0); %Eosinophils 4.7 % (0.0-10.0); %Lymphocytes 9.7 % (21.0-51.0); %Monocytes 16.9 % (0.0-10.0); %Neutrophils 66.5 % (42.0-75.0); Hematocrit 38.6 % (42.0-52.0); Hemoglobin 12.3 g/dL (14.0-18.0); Mean Corpuscular HGB CONC 31.9 g/dL (32.0-36.0); Mean Corpuscular Hemoglobin 29.6 pg (27.0-31.0); Mean Corpuscular Volume 92.8 fl (78.0-98.0); Mean Platelet Volume 10.8 fL (7.4-10.4); Platelet Count 411 10x3/uL (130-400); RBC Distribution Width 14.6 % (11.5-14.5); Red Blood Cell (RBC) Count 4.16 mill/uL (4.70-6.10); White Blood Cell (WBC) Count 9.9 10x3/uL (4.8-10.8)
[2023-02-07 07:57] LABS: Anion Gap 18 mmol/L (10-20); BUN (Urea Nitrogen) 46 mg/dL (8.9-20.6); Calc. Creatinine Clearance 55 mL/min (70-130); Calcium 9.4 mg/dL (7.8-10.44); Carbon Dioxide 22 mmol/L (22-29); Chloride 95 mmol/L (98-107); Estimated GFR 19; Glucose 101 mg/dL (70-105); Potassium 3.6 mmol/L (3.5-5.1); Sodium 131 mmol/L (136-145)
[2023-02-07] MEDS ORDERED: Heparin 10,000 UNITS/ 10 ML VIAL ONE (08:43)
[2023-02-07] MEDS ORDERED: Iopamidol-370 76% 500 ML MDV (1 ML CHARGE) ONE (10:33)
[2023-02-07] MEDS: Ondansetron PF 4 MG/2 ML Vial IVP PRN (10:54)
[2023-02-07] MEDS: Sevelamer Carbonate 800 MG TAB PO SCH ×3 (10:56→16:54)
[2023-02-07] MEDS: EPOETIN ALFA-EPBX 10,000 UNITS/ML VIAL IVP SCH (10:56)
[2023-02-07] MEDS: Gabapentin 300 MG CAP PO SCH ×3 (10:56→21:31)
[2023-02-07] MEDS: hydrALAZINE 25 MG TAB PO SCH ×3 (10:57→21:32)
[2023-02-07] MEDS ORDERED: Etomidate 40 MG (20 mL) VIAL ONE (13:18)
[2023-02-07] MEDS ORDERED: Ventilator Sedation Protocol 1 EACH FS SCH (13:30)
[2023-02-07 13:45] LABS: Lactic Acid 2.6 mmol/L (0.5-2.2)
[2023-02-07 13:57] LABS: ALT (SGPT) 26 U/L (8-55); AST (SGOT) 31 U/L (5-34); Albumin 2.4 g/dL (3.5-5.0); Alkaline Phosphatase 78 U/L (40-110); Anion Gap 13 mmol/L (10-20); BUN (Urea Nitrogen) 15 mg/dL (8.9-20.6); Bilirubin, Total 0.4 mg/dL (0.2-1.2); Calc. Creatinine Clearance 146 mL/min (70-130); Carbon Dioxide 20 mmol/L (22-29); Chloride 109 mmol/L (98-107); Critical Call Chemistry NUR.MBC @1356; Estimated GFR 62; Globulin 2.4 g/dL (2.4-3.5); Glucose 105 mg/dL (70-105); Potassium 2.7 mmol/L (3.5-5.1); Protein, Total 4.8 g/dL (6.0-8.3); Sodium 139 mmol/L (136-145)
[2023-02-07] MEDS ORDERED: Calcium Gluc 4.6 MEQ/10 ML (100 MG/ML) SLOW IVP ONE ×2 (13:57→13:58)
[2023-02-07 13:58] LABS: INR-International Normal Ratio 1.1; Prothrombin Time 14.7 sec (12.0-14.7)
[2023-02-07] MEDS ORDERED: Lorazepam 2 MG/ML VIAL SLOW IVP PRN (14:00)
[2023-02-07] MEDS ORDERED: Morphine 2 MG/ML VIAL SLOW IVP PRN (14:00)
[2023-02-07] MEDS ORDERED: Potassium Chloride 20 MEQ in Premix 1 BAG IVPB SCH (14:00)
[2023-02-07] MEDS ORDERED: Propofol BOLUS 1,000 MG/100 ML VIAL IV PRN (14:00)
[2023-02-07] MEDS ORDERED: Propofol 1,000 MG/100 ML VIAL IV PRN (14:00)
[2023-02-07] MEDS ORDERED: Fentanyl BOLUS 250 ML IVPB PRN (14:00)
[2023-02-07] MEDS ORDERED: Fentanyl CADD 100 ML IV SCH (14:00)
[2023-02-07] MEDS ORDERED: Electrolyte Replacement Protocol 1 EACH FS ONE (14:09)
[2023-02-07] MEDS ORDERED: Calcium Chloride 13.6 MEQ in Sodium Chloride 0.9% 100 ML IVPB SCH (14:15)
[2023-02-07 14:19] LABS: Actual Bicarbonate (HCO3a) 26.8 mEq/L (22-28); Base Excess (BEa) 1.8 mEq/L (-2.0 to +3.0); CO2 Tension 43.5 mmHg (35.0-45.0); Calcium, Ionized (arterial) 0.96 mmol/L (1.12-1.30); Carboxyhemoglobin (COHb) 0.8 gm% (0.0-3.0); Hematocrit-ABG 41 % (42.0-52.0); Potassium - ABG Lab 3.57 mmol/L (3.70-5.30); pH, Arterial 7.408 (7.35-7.45)
[2023-02-07 14:27] LABS: O2 Tension (PaO2), arterial 55.8 mmHg (80.0-100.0)
[2023-02-07] MEDS: NIFEdipine XL 60 MG ER.TAB PO SCH ×2 (14:27→21:32)
[2023-02-07] MEDS: Enoxaparin 40 MG (0.4 mL) SYRINGE SC SCH ×2 (14:27→21:21)
[2023-02-07] MEDS: BuPROPion XL 150 MG ER.TAB PO SCH (14:27)
[2023-02-07 14:28] LABS: ALV-art Gradient 246.325 mmHg (0-20); Puncture Site LRA
[2023-02-07] MEDS ORDERED: Meropenem 1 GM in Sodium Chloride 0.9% 100 ML IVPB SCH (15:15)
[2023-02-07] MEDS: Ezetimibe 10 MG TAB PO SCH (15:50)
[2023-02-07] MEDS: Clopidogrel Bisulfate 75 MG TAB PO SCH (15:50)
[2023-02-07] MEDS: Venlafaxine 75 MG TAB PO SCH (15:50)
[2023-02-07 15:59] LABS: Lactic Acid 1.6 mmol/L (0.5-2.2)
[2023-02-07] MEDS: Acetaminophen 325 MG TAB PO PRN (16:57)
[2023-02-07] MEDS ORDERED: Vancomycin 1 GM in Sodium Chloride 0.9% 250 ML 250 ML IVPB ONE (17:09)
[2023-02-07] MEDS ORDERED: VANCOMYCIN IVPB PRN (17:51)
[2023-02-07] MEDS ORDERED: Vancomycin 2.5 GM in Sodium Chloride 0.9% 500 ML IVPB SCH (18:00)
[2023-02-07] MEDS ORDERED: Vancomycin Dialysis Sliding Scale (Wt > 99) FS SCH (18:00)
[2023-02-07] MEDS: Polyethylene Glycol 3350 17 GM Packet PO PRN (18:19)
[2023-02-07 18:55] LABS: Anion Gap 16 mmol/L (10-20); BUN (Urea Nitrogen) 24 mg/dL (8.9-20.6); Calc. Creatinine Clearance 68 mL/min (70-130); Calcium 8.5 mg/dL (7.8-10.44); Carbon Dioxide 24 mmol/L (22-29); Chloride 96 mmol/L (98-107); Estimated GFR 25; Glucose 111 mg/dL (70-105); Potassium 4.2 mmol/L (3.5-5.1); Sodium 132 mmol/L (136-145)
[2023-02-07] MEDS: QUEtiapine 25 MG TAB PO SCH (21:31)
[2023-02-07] MEDS: Atorvastatin Calcium 20 MG TAB PO SCH (21:31)
[2023-02-08] MEDS: Meropenem 1 GM in Sodium Chloride 0.9% 100 ML IVPB SCH ×3 (00:02→15:52)
[2023-02-08 04:11] LABS: #Basophils 0.1 thou/uL (0.0-0.2); #Eosinphils 0.3 thou/uL (0.0-0.7); #Monocytes 2.1 thou/uL (0.11-0.59); #Neutrophils 8.1 thou/uL (1.40-6.50); %Basophils 0.7 % (0.0-1.0); %Eosinophils 2.3 % (0.0-10.0); %Lymphocytes 11.7 % (21.0-51.0); %Monocytes 17.1 % (0.0-10.0); %Neutrophils 66.8 % (42.0-75.0); Hematocrit 38.4 % (42.0-52.0); Hemoglobin 11.8 g/dL (14.0-18.0); Mean Corpuscular HGB CONC 30.7 g/dL (32.0-36.0); Mean Corpuscular Volume 94.3 fl (78.0-98.0); Mean Platelet Volume 10.5 fL (7.4-10.4); Platelet Count 369 10x3/uL (130-400); Red Blood Cell (RBC) Count 4.07 mill/uL (4.70-6.10); White Blood Cell (WBC) Count 12.1 10x3/uL (4.8-10.8)
[2023-02-08 04:36] LABS: Anion Gap 15 mmol/L (10-20); BUN (Urea Nitrogen) 30 mg/dL (8.9-20.6); Calc. Creatinine Clearance 52 mL/min (70-130); Calcium 8.7 mg/dL (7.8-10.44); Carbon Dioxide 25 mmol/L (22-29); Cardiac Risk 4.1 (Less than 4.5); Chloride 97 mmol/L (98-107); Cholesterol 106 mg/dl (< 200 Desired); Estimated GFR 18; Glucose 99 mg/dL (70-105); HDL Cholesterol 26 mg/dL (>60 Neg Risk); LDL Cholesterol, Calculated 53 mg/dL; Potassium 4.1 mmol/L (3.5-5.1); Sodium 133 mmol/L (136-145); Triglycerides 136 mg/dL (Less than 150)
[2023-02-08 06:56] LABS: Actual Bicarbonate (HCO3a) 24.9 mEq/L (22-28); Base Excess (BEa) -0.1 mEq/L (-2.0 to +3.0); Calcium, Ionized (arterial) 1.15 mmol/L (1.12-1.30); Carboxyhemoglobin (COHb) 0.3 gm% (0.0-3.0); Hematocrit-ABG 36 % (42.0-52.0); Hemoglobin (Hb) 12.3 g/dL (14.0-18.0); O2 Tension (PaO2), arterial 107.6 mmHg (80.0-100.0); Potassium - ABG Lab 4.18 mmol/L (3.70-5.30); pH, Arterial 7.391 (7.35-7.45)
[2023-02-08 07:03] LABS: Puncture Site RRA
[2023-02-08] MEDS ORDERED: Magnesium Citrate 300 ML BOT PO SCH (08:00)
[2023-02-08] MEDS: Sevelamer Carbonate 800 MG TAB PO SCH ×3 (08:00→16:58)
[2023-02-08] MEDS: Ezetimibe 10 MG TAB PO SCH (09:00)
[2023-02-08] MEDS: Gabapentin 300 MG CAP PO SCH ×3 (09:07→21:39)
[2023-02-08] MEDS: BuPROPion XL 150 MG ER.TAB PO SCH (09:07)
[2023-02-08] MEDS: Heparin 5,000 UNITS/ML VIAL SC SCH ×3 (09:10→21:40)
[2023-02-08] MEDS: hydrALAZINE 25 MG TAB PO SCH ×3 (09:12→21:40)
[2023-02-08] MEDS: Clopidogrel Bisulfate 75 MG TAB PO SCH (09:13)
[2023-02-08] MEDS: Venlafaxine 75 MG TAB PO SCH (09:13)
[2023-02-08] MEDS: NIFEdipine XL 60 MG ER.TAB PO SCH ×2 (09:14→21:39)
[2023-02-08] MEDS: Ondansetron PF 4 MG/2 ML Vial IVP PRN (12:48)
[2023-02-08] MEDS: QUEtiapine 25 MG TAB PO SCH (21:39)
[2023-02-08] MEDS: Atorvastatin Calcium 20 MG TAB PO SCH (21:40)
[2023-02-09] MEDS: Meropenem 1 GM in Sodium Chloride 0.9% 100 ML IVPB SCH ×3 (00:26→15:41)
[2023-02-09 04:37] LABS: Anion Gap 17 mmol/L (10-20); BUN (Urea Nitrogen) 52 mg/dL (8.9-20.6); Calc. Creatinine Clearance 51 mL/min (70-130); Calcium 8.6 mg/dL (7.8-10.44); Carbon Dioxide 24 mmol/L (22-29); Chloride 97 mmol/L (98-107); Estimated GFR 18; Glucose 91 mg/dL (70-105); Potassium 4.3 mmol/L (3.5-5.1); Sodium 134 mmol/L (136-145)
[2023-02-09 07:41] LABS: Vancomycin, Random 20.3 ug/mL (See Comment)
[2023-02-09] MEDS: Sevelamer Carbonate 800 MG TAB PO SCH ×3 (08:51→17:08)
[2023-02-09] MEDS: Gabapentin 300 MG CAP PO SCH ×3 (10:41→20:57)
[2023-02-09] MEDS: hydrALAZINE 25 MG TAB PO SCH ×3 (10:42→20:56)
[2023-02-09] MEDS: NIFEdipine XL 60 MG ER.TAB PO SCH ×2 (10:42→20:56)
[2023-02-09] MEDS: BuPROPion XL 150 MG ER.TAB PO SCH (10:43)
[2023-02-09] MEDS: Clopidogrel Bisulfate 75 MG TAB PO SCH (10:43)
[2023-02-09] MEDS: Venlafaxine 75 MG TAB PO SCH (10:43)
[2023-02-09] MEDS: Ezetimibe 10 MG TAB PO SCH (10:44)
[2023-02-09] MEDS: Heparin 5,000 UNITS/ML VIAL SC SCH ×3 (10:44→21:04)
[2023-02-09] MEDS: EPOETIN ALFA-EPBX 10,000 UNITS/ML VIAL SC SCH (15:22)
[2023-02-09] MEDS: Atorvastatin Calcium 20 MG TAB PO SCH (20:55)
[2023-02-09] MEDS: QUEtiapine 25 MG TAB PO SCH (20:57)
[2023-02-10] MEDS ORDERED: Meropenem 1 GM in Sodium Chloride 0.9% 100 ML IVPB SCH (04:00)
[2023-02-10 05:04] VITALS: BMI 44.1
[2023-02-10 05:13] LABS: Anion Gap 14 mmol/L (10-20); BUN (Urea Nitrogen) 60 mg/dL (8.9-20.6); Calc. Creatinine Clearance 67 mL/min (70-130); Calcium 8.3 mg/dL (7.8-10.44); Carbon Dioxide 26 mmol/L (22-29); Chloride 95 mmol/L (98-107); Estimated GFR 25; Glucose 84 mg/dL (70-105); Potassium 4.3 mmol/L (3.5-5.1); Sodium 131 mmol/L (136-145)
[2023-02-10] MEDS: Sevelamer Carbonate 800 MG TAB PO SCH ×3 (08:19→16:49)
[2023-02-10] MEDS: hydrALAZINE 25 MG TAB PO SCH ×3 (08:31→21:40)
[2023-02-10] MEDS: Gabapentin 300 MG CAP PO SCH ×3 (08:32→21:39)
[2023-02-10] MEDS: BuPROPion XL 150 MG ER.TAB PO SCH (08:32)
[2023-02-10] MEDS: Venlafaxine 75 MG TAB PO SCH (08:32)
[2023-02-10] MEDS: Ezetimibe 10 MG TAB PO SCH (08:32)
[2023-02-10] MEDS: Clopidogrel Bisulfate 75 MG TAB PO SCH (08:32)
[2023-02-10] MEDS: Heparin 5,000 UNITS/ML VIAL SC SCH ×3 (08:32→21:47)
[2023-02-10] MEDS: NIFEdipine XL 60 MG ER.TAB PO SCH ×2 (08:40→21:41)
[2023-02-10 09:02] LABS: Vancomycin, Random 16.2 ug/mL (See Comment)
[2023-02-10] MEDS: EPOETIN ALFA-EPBX 10,000 UNITS/ML VIAL IVP SCH (12:35)
[2023-02-10] MEDS ORDERED: Meropenem 500 MG in Sodium Chloride 0.9% 100 ML IVPB SCH (16:00)
[2023-02-10] MEDS ORDERED: Vancomycin 1 GM in Premix 1 BAG IVPB SCH (17:00)
[2023-02-10] MEDS: Atorvastatin Calcium 20 MG TAB PO SCH (21:39)
[2023-02-10] MEDS: QUEtiapine 25 MG TAB PO SCH (21:41)
[2023-02-10] MEDS: Senokot S 8.6-50 MG TAB PO SCH (21:42)
[2023-02-11 06:11] LABS: Anion Gap 14 mmol/L (10-20); BUN (Urea Nitrogen) 37 mg/dL (8.9-20.6); Calc. Creatinine Clearance 104 mL/min (70-130); Calcium 8.3 mg/dL (7.8-10.44); Carbon Dioxide 25 mmol/L (22-29); Chloride 95 mmol/L (98-107); Estimated GFR 42; Glucose 81 mg/dL (70-105); Potassium 3.9 mmol/L (3.5-5.1); Sodium 130 mmol/L (136-145)
[2023-02-11] MEDS: Acetaminophen 325 MG TAB PO PRN (07:31)
[2023-02-11] MEDS: Sevelamer Carbonate 800 MG TAB PO SCH ×3 (07:33→17:34)
[2023-02-11] MEDS: BuPROPion XL 150 MG ER.TAB PO SCH (07:45)
[2023-02-11] MEDS: Venlafaxine 75 MG TAB PO SCH (07:46)
[2023-02-11] MEDS: ALPRAZolam 0.25 MG TAB PO PRN ×2 (08:42→14:36)
[2023-02-11] MEDS: hydrALAZINE 25 MG TAB PO SCH ×3 (08:44→21:57)
[2023-02-11] MEDS: NIFEdipine XL 60 MG ER.TAB PO SCH ×2 (08:44→21:57)
[2023-02-11] MEDS: Ezetimibe 10 MG TAB PO SCH (08:45)
[2023-02-11] MEDS: Senokot S 8.6-50 MG TAB PO SCH ×2 (08:45→21:57)
[2023-02-11] MEDS: Clopidogrel Bisulfate 75 MG TAB PO SCH (08:45)
[2023-02-11] MEDS: Gabapentin 300 MG CAP PO SCH ×3 (08:45→21:57)
[2023-02-11] MEDS: Heparin 5,000 UNITS/ML VIAL SC SCH ×3 (08:49→21:57)
[2023-02-11] MEDS: Furosemide 40 MG TAB PO SCH (14:30)
[2023-02-11] MEDS: QUEtiapine 100 MG TAB PO SCH (21:57)
[2023-02-11] MEDS: Atorvastatin Calcium 20 MG TAB PO SCH (21:57)
[2023-02-12 04:57] LABS: #Eosinphils 0.3 thou/uL (0.0-0.7); #Monocytes 0.7 thou/uL (0.11-0.59); #Neutrophils 2.9 thou/uL (1.40-6.50); %Basophils 0.6 % (0.0-1.0); %Eosinophils 4.8 % (0.0-10.0); %Lymphocytes 27.5 % (21.0-51.0); %Monocytes 13.7 % (0.0-10.0); %Neutrophils 52.7 % (42.0-75.0); Hematocrit 33.8 % (42.0-52.0); Hemoglobin 10.9 g/dL (14.0-18.0); Mean Corpuscular HGB CONC 32.2 g/dL (32.0-36.0); Mean Corpuscular Hemoglobin 29.8 pg (27.0-31.0); Mean Corpuscular Volume 92.3 fl (78.0-98.0); Mean Platelet Volume 10.3 fL (7.4-10.4); Platelet Count 239 10x3/uL (130-400); RBC Distribution Width 14.7 % (11.5-14.5); Red Blood Cell (RBC) Count 3.66 mill/uL (4.70-6.10); White Blood Cell (WBC) Count 5.4 10x3/uL (4.8-10.8)
[2023-02-12 05:23] LABS: Anion Gap 16 mmol/L (10-20); BUN (Urea Nitrogen) 48 mg/dL (8.9-20.6); Calc. Creatinine Clearance 100 mL/min (70-130); Calcium 8.4 mg/dL (7.8-10.44); Carbon Dioxide 23 mmol/L (22-29); Chloride 94 mmol/L (98-107); Estimated GFR 40; Glucose 73 mg/dL (70-105); Potassium 3.9 mmol/L (3.5-5.1); Sodium 129 mmol/L (136-145)
[2023-02-12] MEDS ORDERED: Heparin 10,000 UNITS/ 10 ML VIAL ONE (08:45)
[2023-02-12] MEDS: Bisacodyl 5 MG TAB PO PRN (09:12)
[2023-02-12] MEDS: Ergocalciferol 1.25 MG(50,000 UNITS) CAP PO SCH (09:12)
[2023-02-12] MEDS: BuPROPion XL 150 MG ER.TAB PO SCH (09:12)
[2023-02-12] MEDS: NIFEdipine XL 60 MG ER.TAB PO SCH ×2 (09:12→21:28)
[2023-02-12] MEDS: Polyethylene Glycol 3350 17 GM Packet PO PRN (09:12)
[2023-02-12] MEDS: Furosemide 40 MG TAB PO SCH ×2 (09:12→15:19)
[2023-02-12] MEDS: Ezetimibe 10 MG TAB PO SCH (09:12)
[2023-02-12] MEDS: Senokot S 8.6-50 MG TAB PO SCH ×2 (09:13→21:28)
[2023-02-12] MEDS: Gabapentin 300 MG CAP PO SCH ×3 (09:13→21:26)
[2023-02-12] MEDS: hydrALAZINE 25 MG TAB PO SCH ×3 (09:13→21:27)
[2023-02-12] MEDS: Sevelamer Carbonate 800 MG TAB PO SCH ×3 (09:13→18:23)
[2023-02-12] MEDS: Clopidogrel Bisulfate 75 MG TAB PO SCH (09:13)
[2023-02-12] MEDS: Venlafaxine 75 MG TAB PO SCH (09:13)
[2023-02-12] MEDS: Heparin 5,000 UNITS/ML VIAL SC SCH ×3 (09:14→21:28)
[2023-02-12] MEDS: Ipratropium/Albuterol 3 ML NEB NEB PRN (12:37)
[2023-02-12] MEDS: ALPRAZolam 0.25 MG TAB PO PRN (13:43)
[2023-02-12] MEDS: EPOETIN ALFA-EPBX (ESRD) 2,000 UNITS/ML VIAL IVP SCH (14:01)
[2023-02-12] MEDS: QUEtiapine 100 MG TAB PO SCH (21:27)
[2023-02-12] MEDS: Atorvastatin Calcium 20 MG TAB PO SCH (21:28)
[2023-02-13 06:25] LABS: Anion Gap 12 mmol/L (10-20); BUN (Urea Nitrogen) 28 mg/dL (8.9-20.6); Calc. Creatinine Clearance 125 mL/min (70-130); Calcium 8.4 mg/dL (7.8-10.44); Carbon Dioxide 27 mmol/L (22-29); Chloride 96 mmol/L (98-107); Estimated GFR 52; Glucose 78 mg/dL (70-105); Potassium 3.7 mmol/L (3.5-5.1); Sodium 131 mmol/L (136-145)
[2023-02-13] MEDS: Ezetimibe 10 MG TAB PO SCH (08:47)
[2023-02-13] MEDS: Venlafaxine 75 MG TAB PO SCH (08:48)
[2023-02-13] MEDS: NIFEdipine XL 60 MG ER.TAB PO SCH ×2 (08:48→20:37)
[2023-02-13] MEDS: Gabapentin 300 MG CAP PO SCH ×3 (08:50→20:38)
[2023-02-13] MEDS: BuPROPion XL 150 MG ER.TAB PO SCH (08:51)
[2023-02-13] MEDS: Sevelamer Carbonate 800 MG TAB PO SCH ×3 (08:51→17:49)
[2023-02-13] MEDS: Acetaminophen 325 MG TAB PO PRN (08:51)
[2023-02-13] MEDS: Clopidogrel Bisulfate 75 MG TAB PO SCH (08:51)
[2023-02-13] MEDS: Furosemide 40 MG TAB PO SCH ×2 (08:52→12:50)
[2023-02-13] MEDS: hydrALAZINE 25 MG TAB PO SCH ×3 (08:53→20:37)
[2023-02-13] MEDS: Heparin 5,000 UNITS/ML VIAL SC SCH ×3 (08:53→20:38)
[2023-02-13] MEDS: Senokot S 8.6-50 MG TAB PO SCH ×2 (08:53→20:38)
[2023-02-13] MEDS: QUEtiapine 100 MG TAB PO SCH (20:38)
[2023-02-13] MEDS: Atorvastatin Calcium 20 MG TAB PO SCH (20:38)
[2023-02-14 05:44] LABS: Anion Gap 14 mmol/L (10-20); BUN (Urea Nitrogen) 42 mg/dL (8.9-20.6); Calc. Creatinine Clearance 92 mL/min (70-130); Calcium 8.7 mg/dL (7.8-10.44); Carbon Dioxide 21 mmol/L (22-29); Chloride 97 mmol/L (98-107); Estimated GFR 36; Glucose 82 mg/dL (70-105); Potassium 3.6 mmol/L (3.5-5.1); Sodium 128 mmol/L (136-145)
[2023-02-14] MEDS: Clopidogrel Bisulfate 75 MG TAB PO SCH (12:32)
[2023-02-14] MEDS: Sevelamer Carbonate 800 MG TAB PO SCH ×3 (12:32→16:26)
[2023-02-14] MEDS: Ezetimibe 10 MG TAB PO SCH (12:32)
[2023-02-14] MEDS: Venlafaxine 75 MG TAB PO SCH (12:32)
[2023-02-14] MEDS: BuPROPion XL 150 MG ER.TAB PO SCH (12:33)
[2023-02-14] MEDS: Gabapentin 300 MG CAP PO SCH ×3 (12:33→21:34)
[2023-02-14] MEDS: Furosemide 40 MG TAB PO SCH ×2 (12:34→12:50)
[2023-02-14] MEDS: Heparin 5,000 UNITS/ML VIAL SC SCH ×3 (12:34→21:35)
[2023-02-14] MEDS: hydrALAZINE 25 MG TAB PO SCH ×3 (12:34→21:33)
[2023-02-14] MEDS: Senokot S 8.6-50 MG TAB PO SCH ×2 (12:35→21:33)
[2023-02-14] MEDS: Polyethylene Glycol 3350 17 GM Packet PO PRN (12:48)
[2023-02-14] MEDS: NIFEdipine XL 60 MG ER.TAB PO SCH ×3 (12:48→21:34)
[2023-02-14] MEDS: EPOETIN IVP SCH (13:45)
[2023-02-14] MEDS: EPOETIN ALFA-EPBX (ESRD) 2,000 UNITS/ML VIAL IVP SCH (15:11)
[2023-02-14] MEDS: QUEtiapine 100 MG TAB PO SCH (21:34)
[2023-02-14] MEDS: Atorvastatin Calcium 20 MG TAB PO SCH (21:34)
[2023-02-15 07:28] LABS: Anion Gap 16 mmol/L (10-20); BUN (Urea Nitrogen) 29 mg/dL (8.9-20.6); Calc. Creatinine Clearance 89 mL/min (70-130); Calcium 8.6 mg/dL (7.8-10.44); Carbon Dioxide 23 mmol/L (22-29); Chloride 98 mmol/L (98-107); Estimated GFR 34; Glucose 80 mg/dL (70-105); Potassium 3.7 mmol/L (3.5-5.1); Sodium 133 mmol/L (136-145)
[2023-02-15] MEDS: Venlafaxine 75 MG TAB PO SCH (09:15)
[2023-02-15] MEDS: Sevelamer Carbonate 800 MG TAB PO SCH ×3 (09:15→16:28)
[2023-02-15] MEDS: BuPROPion XL 150 MG ER.TAB PO SCH (09:15)
[2023-02-15] MEDS: Gabapentin 300 MG CAP PO SCH ×3 (09:15→20:25)
[2023-02-15] MEDS: Clopidogrel Bisulfate 75 MG TAB PO SCH (09:16)
[2023-02-15] MEDS: Ezetimibe 10 MG TAB PO SCH (09:16)
[2023-02-15] MEDS: Senokot S 8.6-50 MG TAB PO SCH ×2 (09:16→20:26)
[2023-02-15] MEDS: Heparin 5,000 UNITS/ML VIAL SC SCH ×3 (09:16→20:26)
[2023-02-15] MEDS: Furosemide 40 MG TAB PO SCH ×2 (09:16→15:16)
[2023-02-15] MEDS: hydrALAZINE 25 MG TAB PO SCH ×3 (09:28→20:25)
[2023-02-15] MEDS: NIFEdipine XL 60 MG ER.TAB PO SCH ×2 (09:38→20:26)
[2023-02-15] MEDS: ALPRAZolam 0.25 MG TAB PO PRN (11:47)
[2023-02-15] MEDS: Polyethylene Glycol 3350 17 GM Packet PO PRN (15:23)
[2023-02-15] MEDS: Atorvastatin Calcium 20 MG TAB PO SCH (20:26)
[2023-02-15] MEDS: QUEtiapine 100 MG TAB PO SCH (20:26)
[2023-02-16 05:37] LABS: Anion Gap 14 mmol/L (10-20); BUN (Urea Nitrogen) 36 mg/dL (8.9-20.6); Calc. Creatinine Clearance 71 mL/min (70-130); Calcium 8.6 mg/dL (7.8-10.44); Carbon Dioxide 23 mmol/L (22-29); Chloride 97 mmol/L (98-107); Estimated GFR 27; Glucose 82 mg/dL (70-105); Potassium 3.8 mmol/L (3.5-5.1); Sodium 130 mmol/L (136-145)
[2023-02-16] MEDS: hydrALAZINE 25 MG TAB PO SCH ×3 (08:41→20:50)
[2023-02-16] MEDS: NIFEdipine XL 60 MG ER.TAB PO SCH ×2 (08:41→20:52)
[2023-02-16] MEDS: Senokot S 8.6-50 MG TAB PO SCH ×2 (08:41→20:51)
[2023-02-16] MEDS: Gabapentin 300 MG CAP PO SCH ×3 (08:42→20:51)
[2023-02-16] MEDS: Sevelamer Carbonate 800 MG TAB PO SCH ×3 (08:42→16:20)
[2023-02-16] MEDS: Furosemide 40 MG TAB PO SCH ×2 (08:42→13:03)
[2023-02-16] MEDS: Ezetimibe 10 MG TAB PO SCH (08:42)
[2023-02-16] MEDS: Venlafaxine 75 MG TAB PO SCH (08:42)
[2023-02-16] MEDS: BuPROPion XL 150 MG ER.TAB PO SCH (08:43)
[2023-02-16] MEDS: Clopidogrel Bisulfate 75 MG TAB PO SCH (08:43)
[2023-02-16] MEDS: Heparin 5,000 UNITS/ML VIAL SC SCH ×3 (08:45→20:52)
[2023-02-16] MEDS: HumaLOG 300 UNITS/3 ML VIAL SC PRN (13:03)
[2023-02-16] MEDS ORDERED: Magnesium Citrate 300 ML BOT PO SCH (14:00)
[2023-02-16] MEDS: Atorvastatin Calcium 20 MG TAB PO SCH (20:50)
[2023-02-16] MEDS: QUEtiapine 100 MG TAB PO SCH (20:50)
[2023-02-17 05:57] LABS: Anion Gap 17 mmol/L (10-20); BUN (Urea Nitrogen) 38 mg/dL (8.9-20.6); Calc. Creatinine Clearance 63 mL/min (70-130); Calcium 8.6 mg/dL (7.8-10.44); Carbon Dioxide 22 mmol/L (22-29); Chloride 96 mmol/L (98-107); Estimated GFR 23; Glucose 80 mg/dL (70-105); Potassium 3.7 mmol/L (3.5-5.1); Sodium 131 mmol/L (136-145)
[2023-02-17] MEDS ORDERED: Heparin 10,000 UNITS/ 10 ML VIAL ONE (08:33)
[2023-02-17] MEDS: Ondansetron PF 4 MG/2 ML Vial IVP PRN (11:20)
[2023-02-17] MEDS: Acetaminophen 325 MG TAB PO PRN (11:20)
[2023-02-17] MEDS: Gabapentin 300 MG CAP PO SCH ×3 (12:29→22:05)
[2023-02-17] MEDS: hydrALAZINE 25 MG TAB PO SCH ×3 (12:30→22:05)
[2023-02-17] MEDS: Ezetimibe 10 MG TAB PO SCH (12:30)
[2023-02-17] MEDS: Sevelamer Carbonate 800 MG TAB PO SCH ×3 (12:31→17:53)
[2023-02-17] MEDS: BuPROPion XL 150 MG ER.TAB PO SCH (12:31)
[2023-02-17] MEDS: Venlafaxine 75 MG TAB PO SCH (12:31)
[2023-02-17] MEDS: Furosemide 40 MG TAB PO SCH ×2 (12:32→13:39)
[2023-02-17] MEDS: Heparin 5,000 UNITS/ML VIAL SC SCH ×3 (12:32→22:05)
[2023-02-17] MEDS: NIFEdipine XL 60 MG ER.TAB PO SCH ×2 (12:42→22:06)
[2023-02-17] MEDS: Senokot S 8.6-50 MG TAB PO SCH ×2 (12:43→22:05)
[2023-02-17] MEDS: Clopidogrel Bisulfate 75 MG TAB PO SCH (12:44)
[2023-02-17] MEDS: EPOETIN IVP SCH (13:39)
[2023-02-17] MEDS: Atorvastatin Calcium 20 MG TAB PO SCH (22:05)
[2023-02-18 04:37] LABS: #Basophils 0.1 thou/uL (0.0-0.2); #Eosinphils 0.3 thou/uL (0.0-0.7); #Monocytes 0.7 thou/uL (0.11-0.59); #Neutrophils 2.1 thou/uL (1.40-6.50); %Basophils 1.2 % (0.0-1.0); %Eosinophils 5.1 % (0.0-10.0); %Lymphocytes 34.8 % (21.0-51.0); %Neutrophils 42.9 % (42.0-75.0); Hematocrit 36.2 % (42.0-52.0); Hemoglobin 11.5 g/dL (14.0-18.0); Mean Corpuscular HGB CONC 31.8 g/dL (32.0-36.0); Mean Corpuscular Hemoglobin 29.6 pg (27.0-31.0); Mean Corpuscular Volume 93.1 fl (78.0-98.0); Mean Platelet Volume 10.9 fL (7.4-10.4); Platelet Count 313 10x3/uL (130-400); Red Blood Cell (RBC) Count 3.89 mill/uL (4.70-6.10); White Blood Cell (WBC) Count 4.9 10x3/uL (4.8-10.8)
[2023-02-18 05:07] LABS: Anion Gap 16 mmol/L (10-20); BUN (Urea Nitrogen) 28 mg/dL (8.9-20.6); Calc. Creatinine Clearance 61 mL/min (70-130); Calcium 8.8 mg/dL (7.8-10.44); Carbon Dioxide 23 mmol/L (22-29); Chloride 97 mmol/L (98-107); Estimated GFR 22; Glucose 96 mg/dL (70-105); Potassium 3.6 mmol/L (3.5-5.1); Sodium 132 mmol/L (136-145)
[2023-02-18] MEDS: BuPROPion XL 150 MG ER.TAB PO SCH (08:14)
[2023-02-18] MEDS: hydrALAZINE 25 MG TAB PO SCH ×3 (08:14→21:32)
[2023-02-18] MEDS: Gabapentin 300 MG CAP PO SCH ×3 (08:14→21:32)
[2023-02-18] MEDS: NIFEdipine XL 60 MG ER.TAB PO SCH ×2 (08:14→21:31)
[2023-02-18] MEDS: Furosemide 40 MG TAB PO SCH ×2 (08:15→13:22)
[2023-02-18] MEDS: Senokot S 8.6-50 MG TAB PO SCH (08:15)
[2023-02-18] MEDS: Ezetimibe 10 MG TAB PO SCH (08:15)
[2023-02-18] MEDS: Venlafaxine 75 MG TAB PO SCH (08:15)
[2023-02-18] MEDS: Clopidogrel Bisulfate 75 MG TAB PO SCH (08:15)
[2023-02-18] MEDS: Sevelamer Carbonate 800 MG TAB PO SCH ×3 (08:15→16:55)
[2023-02-18] MEDS: Heparin 5,000 UNITS/ML VIAL SC SCH ×3 (08:16→21:34)
[2023-02-18] MEDS: Ondansetron PF 4 MG/2 ML Vial IVP PRN ×2 (11:48→18:22)
[2023-02-18] MEDS: Polyethylene Glycol 3350 17 GM Packet PO PRN (11:48)
[2023-02-18] MEDS: ALPRAZolam 0.25 MG TAB PO PRN (21:31)
[2023-02-18] MEDS: Atorvastatin Calcium 20 MG TAB PO SCH (21:32)
[2023-02-19 05:55] LABS: Anion Gap 14 mmol/L (10-20); BUN (Urea Nitrogen) 33 mg/dL (8.9-20.6); Calc. Creatinine Clearance 53 mL/min (70-130); Calcium 8.6 mg/dL (7.8-10.44); Carbon Dioxide 23 mmol/L (22-29); Chloride 95 mmol/L (98-107); Estimated GFR 19; Glucose 81 mg/dL (70-105); Potassium 3.4 mmol/L (3.5-5.1); Sodium 129 mmol/L (136-145)
[2023-02-19] MEDS: Sevelamer Carbonate 800 MG TAB PO SCH ×2 (08:55→13:29)
[2023-02-19] MEDS ORDERED: Heparin 10,000 UNITS/ 10 ML VIAL ONE (09:06)
[2023-02-19] MEDS: Ergocalciferol 1.25 MG(50,000 UNITS) CAP PO SCH (13:28)
[2023-02-19] MEDS: NIFEdipine XL 60 MG ER.TAB PO SCH (13:29)
[2023-02-19] MEDS: Furosemide 40 MG TAB PO SCH ×2 (13:30→13:31)
[2023-02-19] MEDS: Gabapentin 300 MG CAP PO SCH ×2 (13:30→14:25)
[2023-02-19] MEDS: hydrALAZINE 25 MG TAB PO SCH ×2 (13:31→14:24)
[2023-02-19] MEDS: Heparin 5,000 UNITS/ML VIAL SC SCH ×2 (13:31→14:25)
[2023-02-19] MEDS: Ezetimibe 10 MG TAB PO SCH (13:31)
[2023-02-19] MEDS: BuPROPion XL 150 MG ER.TAB PO SCH (13:32)
[2023-02-19] MEDS: Venlafaxine 75 MG TAB PO SCH (13:32)
[2023-02-19] MEDS: EPOETIN IVP SCH (13:32)
[2023-02-19] MEDS: Clopidogrel Bisulfate 75 MG TAB PO SCH (13:32)
[2023-02-19] MEDS: Acetaminophen 325 MG TAB PO PRN (14:24)
[2023-02-19 16:21] VITALS: BP 147/79; TEMP 98.2
[2023-02-19] MEDS ORDERED: Senokot S 8.6-50 MG TAB PO SCH (21:00)
== END 2023-02-19 16:35 | disposition home or self-care (01) | DRG 208 ==
LOC: ERS 06:29 → IMCU/EMU 07:57 → 2NO 02-02 22:47 → T4-B 02-05 17:08 → CCU 02-07 13:28 → 2SE 02-11 20:26 → SJJU 02-18 18:04
PROVIDERS: ADMIT Internal Medicine; ATTEND Internal Medicine
PROC: 5A09457 Assistance with Respiratory Ventilation, 24-96 Consecutive Hours, Continuous Positive Airway Pressure (ICD-10-PCS; 2023-01-18)
PROC: 06HY33Z Insertion of Infusion Device into Lower Vein, Percutaneous Approach (ICD-10-PCS; principal; 2023-01-27)
PROC: 5A0935A Assistance with Respiratory Ventilation, Less than 24 Consecutive Hours, High Flow/Velocity Cannula (ICD-10-PCS; 2023-01-30)
PROC: 0JH60XZ Insertion of Tunneled Vascular Access Device into Chest Subcutaneous Tissue and Fascia, Open Approach (ICD-10-PCS; 2023-02-04)
PROC: 05HN33Z Insertion of Infusion Device into Left Internal Jugular Vein, Percutaneous Approach (ICD-10-PCS; 2023-02-04)
PROC: B5141ZA Fluoroscopy of Left Jugular Veins using Low Osmolar Contrast, Guidance (ICD-10-PCS; 2023-02-04)
PROC: 0BH17EZ Insertion of Endotracheal Airway into Trachea, Via Natural or Artificial Opening (ICD-10-PCS; 2023-02-07)
PROC: 5A1935Z Respiratory Ventilation, Less than 24 Consecutive Hours (ICD-10-PCS; 2023-02-07)
PROC: 4A133R1 Monitoring of Arterial Saturation, Peripheral, Percutaneous Approach (ICD-10-PCS; 2023-02-07)
DX: J96.01 Acute respiratory failure with hypoxia (principal); G93.41 Metabolic encephalopathy; I50.33 Acute on chronic diastolic (congestive) heart failure; N18.6 End stage renal disease; I13.2 Hypertensive heart and chronic kidney disease with heart failure and with stage 5 chronic kidney disease, or end stage renal disease; Z68.41 Body mass index [BMI] 40.0-44.9, adult; N17.9 Acute kidney failure, unspecified; E78.5 Hyperlipidemia, unspecified; Z90.49 Acquired absence of other specified parts of digestive tract; Z98.890 Other specified postprocedural states; F41.9 Anxiety disorder, unspecified; F32.A Depression, unspecified; Z79.899 Other long term (current) drug therapy; I73.9 Peripheral vascular disease, unspecified; Z82.49 Family history of ischemic heart disease and other diseases of the circulatory system; I16.0 Hypertensive urgency; E11.22 Type 2 diabetes mellitus with diabetic chronic kidney disease; I25.10 Atherosclerotic heart disease of native coronary artery without angina pectoris; G47.33 Obstructive sleep apnea (adult) (pediatric); E66.01 Morbid (severe) obesity due to excess calories; E11.51 Type 2 diabetes mellitus with diabetic peripheral angiopathy without gangrene; Z79.4 Long term (current) use of insulin; D63.1 Anemia in chronic kidney disease; E87.6 Hypokalemia; E21.3 Hyperparathyroidism, unspecified; E87.5 Hyperkalemia
CPT/HCPCS: 36415; 36416; 36600; 70450; 71045; 71275; 76770; 80048; 80053; 80061; 80202; 82306; 82570; 82805; 83605; 83735; 83880; 83970; 84100; 84145; 84146; 84156; 84484; 85025; 85379; 85610; 86580; 86704; 87040; 87070; 87205; 90935; 93005; 93010; 93306; 93798; 93970; 94002; 94003; 94660; 94760; 95711; 95816; 95819; 96365; 96366; 96375; C1751; C1752; G0257; J0171; J0690; J0692; J0885; J1100; J1644; J1650; J1815; J1940; J2001; J2185; J2250; J2405; J2704; J2920; J2997; J3010; J3370; J3370-JW; J3480; J3490; J7030; J7620; J7626; Q4081; Q5105; Q5106; Q9967; S0020

== ENCOUNTER 2023-03-28 16:01 | Inpatient (IN) | payer BC, OTHER ==
[2023-03-28 16:35] LABS: #Basophils 0.1 thou/uL (0.0-0.2); #Eosinphils 0.4 thou/uL (0.0-0.7); #Monocytes 0.8 thou/uL (0.11-0.59); #Neutrophils 9.8 thou/uL (1.40-6.50); %Basophils 0.9 % (0.0-1.0); %Monocytes 5.9 % (0.0-10.0); %Neutrophils 71.5 % (42.0-75.0); Hematocrit 30.8 % (42.0-52.0); Mean Corpuscular HGB CONC 32.5 g/dL (32.0-36.0); Mean Corpuscular Hemoglobin 29.6 pg (27.0-31.0); Mean Corpuscular Volume 91.1 fl (78.0-98.0); Platelet Count 506 10x3/uL (130-400); RBC Distribution Width 15.6 % (11.5-14.5); Red Blood Cell (RBC) Count 3.38 mill/uL (4.70-6.10); White Blood Cell (WBC) Count 13.7 10x3/uL (4.8-10.8)
[2023-03-28 16:37] LABS: Actual Bicarbonate (HCO3v) 20.1 mEq/L (22-28); Analyzer IN Cardio ER; Base Excess -4.4 mEq/L (-2.0 to +3.0); Chloride (VBG) 103 mmol/L (98-106); Hematocrit-VBG 32 % (42.0-52.0); Potassium (VBG) 4.03 mmol/L (3.70-5.30); Sodium 137 mmol/L (133-146)
[2023-03-28 16:52] LABS: INR-International Normal Ratio 1.1; PTT 28.1 sec (22.9-36.1); Prothrombin Time 14.5 sec (12.0-14.7)
[2023-03-28 17:04] LABS: ALT (SGPT) 17 U/L (8-55); AST (SGOT) 19 U/L (5-34); Albumin 3.1 g/dL (3.5-5.0); Alkaline Phosphatase 95 U/L (40-110); Anion Gap 14 mmol/L (10-20); BUN (Urea Nitrogen) 24 mg/dL (8.9-20.6); Bilirubin, Total 0.7 mg/dL (0.2-1.2); Calc. Creatinine Clearance 0 mL/min (70-130); Calcium 9.5 mg/dL (7.8-10.44); Carbon Dioxide 22 mmol/L (22-29); Chloride 104 mmol/L (98-107); Estimated GFR 41; Glucose 121 mg/dL (70-105); Potassium 4.1 mmol/L (3.5-5.1); Protein, Total 7.1 g/dL (6.0-8.3); Sodium 136 mmol/L (136-145)
[2023-03-28] MEDS ORDERED: Furosemide 40 MG (4 mL) VIAL ONE ×2 (17:49→21:52)
[2023-03-28] MEDS ORDERED: Cefepime 2 GM VIAL ONE (17:50)
[2023-03-28] MEDS ORDERED: Sodium Chloride 0.9% 100 ML ONE ×2 (17:50→22:24)
[2023-03-28] MEDS ORDERED: Vancomycin 1 GM in Premix 1 BAG IVPB SCH (18:45)
[2023-03-28 20:03] LABS: SARS-CoV-2 E Target Negative; SARS-CoV-2 N2 Target Negative; SARS-CoV-2 NAA Rapid Test Not Detected (NotDetected); SARS-CoV-2 RdRP gene Negative
[2023-03-28] MEDS: Vancomycin 2.5 GM Sodium Chloride 0.9% 500 ML IVPB SCH (20:56)
[2023-03-28] MEDS: EPOETIN ALFA-EPBX (ESRD) 10,000 UNITS/ML VIAL SC SCH (21:07)
[2023-03-28] MEDS ORDERED: Heparin 5,000 UNITS/ML VIAL ONE (21:52)
[2023-03-28] MEDS ORDERED: hydrALAZINE 25 MG TAB ONE (21:52)
[2023-03-28] MEDS ORDERED: QUEtiapine 25 MG TAB ONE (21:53)
[2023-03-28] MEDS ORDERED: cefTRIAXone (ROCEPHIN) 1 GM VIAL ONE (22:24)
[2023-03-28] MEDS: QUEtiapine 25 MG TAB PO SCH (22:40)
[2023-03-28] MEDS: Furosemide 40 MG (4 mL) VIAL SLOW IVP SCH (22:40)
[2023-03-28] MEDS: cefTRIAXone\\ROCEPHIN 1 GM in Sodium Chloride 0.9% 100 ML IVPB SCH (22:42)
[2023-03-28] MEDS: Heparin 5,000 UNITS/ML VIAL SC SCH (22:45)
[2023-03-28] MEDS: hydrALAZINE 25 MG TAB PO SCH (22:52)
[2023-03-29] MEDS: Ranolazine ER 500 MG TAB PO SCH (00:48)
[2023-03-29] MEDS: NIFEdipine XL 60 MG ER.TAB PO SCH (00:49)
[2023-03-29 06:19] LABS: #Monocytes 0.1 thou/uL (0.11-0.59); #Neutrophils 4.7 thou/uL (1.40-6.50); %Basophils 0.2 % (0.0-1.0); %Lymphocytes 18.1 % (21.0-51.0); %Monocytes 1.7 % (0.0-10.0); %Neutrophils 79.5 % (42.0-75.0); Hemoglobin 9.9 g/dL (14.0-18.0); Mean Corpuscular HGB CONC 30.9 g/dL (32.0-36.0); Mean Corpuscular Hemoglobin 28.6 pg (27.0-31.0); Mean Corpuscular Volume 92.5 fl (78.0-98.0); Mean Platelet Volume 10.3 fL (7.4-10.4); Platelet Count 407 10x3/uL (130-400); RBC Distribution Width 15.8 % (11.5-14.5); Red Blood Cell (RBC) Count 3.46 mill/uL (4.70-6.10); White Blood Cell (WBC) Count 5.9 10x3/uL (4.8-10.8)
[2023-03-29] MEDS: Furosemide 40 MG (4 mL) VIAL SLOW IVP SCH (06:36)
[2023-03-29] MEDS: Vancomycin (BATCH) 1.5 GM in Premix 1 BAG IVPB SCH (06:36)
[2023-03-29 06:42] LABS: Anion Gap 21 mmol/L (10-20); BUN (Urea Nitrogen) 31 mg/dL (8.9-20.6); Calc. Creatinine Clearance 94 mL/min (70-130); Calcium 9.3 mg/dL (7.8-10.44); Carbon Dioxide 17 mmol/L (22-29); Chloride 105 mmol/L (98-107); Estimated GFR 35; Glucose 144 mg/dL (70-105); Potassium 4.7 mmol/L (3.5-5.1); Sodium 138 mmol/L (136-145)
[2023-03-29] MEDS: Clopidogrel Bisulfate 75 MG TAB PO SCH (09:42)
[2023-03-29] MEDS: Sevelamer Carbonate 800 MG TAB PO SCH (09:42)
[2023-03-29] MEDS: Venlafaxine 75 MG TAB PO SCH (09:42)
[2023-03-29] MEDS: Nitroglycerin 2% Ointment 1 INCH/1 GM Packet TOP SCH (13:17)
[2023-03-29 13:19] LABS: Bacteria/HPF None Seen HPF (None Seen); Bilirubin Negative (Negative); Blood, Urine 2+ (Negative); Clarity Clear (Clear); Glucose, Urine (Dipstick) 30 mg/dL (Negative); Ketone, Urine Negative (Negative); Leukocyte Negative Leu/uL (Negative); Nitrite Negative (Negative); Protein, Urine (Dipstick) 200 mg/dL (Neg-Trace); RBC/HPF 21-50 HPF (0-3); Specific Gravity, Urine 1.014 (1.002-1.036); Squamous Epithelial None Seen HPF (0-3); Urobilinogen Normal mg/dL (Less than 2); WBC/HPF 0-3 HPF (0-3)
[2023-03-29] MEDS: Bumetanide 1 MG/4 ML VIAL IVP SCH (15:59)
[2023-03-30 06:19] LABS: Vancomycin, Trough 26.5 ug/mL
[2023-03-30] MEDS: Vancomycin (BATCH) 1.5 GM in Premix 1 BAG IVPB SCH (07:53)
[2023-03-30] MEDS: Acetaminophen 325 MG TAB PO PRN (08:17)
[2023-03-30 12:38] LABS: Anion Gap 12 mmol/L (10-20); BUN (Urea Nitrogen) 40 mg/dL (8.9-20.6); Calc. Creatinine Clearance 92 mL/min (70-130); Calcium 8.8 mg/dL (7.8-10.44); Carbon Dioxide 21 mmol/L (22-29); Chloride 105 mmol/L (98-107); Estimated GFR 35; Glucose 109 mg/dL (70-105); Potassium 3.4 mmol/L (3.5-5.1); Sodium 135 mmol/L (136-145)
[2023-03-30] MEDS: EPOETIN ALFA-EPBX 10,000 UNITS/ML VIAL SC SCH (14:35)
[2023-03-30] MEDS: Potassium Chloride 20 MEQ TAB PO SCH (14:37)
[2023-03-30 15:19] LABS: CO2 Tension 33.1 mmHg (35.0-45.0); Calcium, Ionized (arterial) 1.18 mmol/L (1.12-1.30); Carboxyhemoglobin (COHb) 0.4 gm% (0.0-3.0); Hematocrit-ABG 32 % (42.0-52.0); Hemoglobin (Hb) 10.8 g/dL (14.0-18.0); O2 Tension (PaO2), arterial 82.2 mmHg (80.0-100.0); Potassium - ABG Lab 3.55 mmol/L (3.70-5.30)
[2023-03-30 15:20] LABS: ALV-art Gradient 232.925 mmHg (0-20)
[2023-03-30] MEDS: Lidocaine 1% (PF) 30 ML VIAL ONE (17:23)
[2023-03-30] MEDS: Cephalexin 250 MG CAP PO SCH (17:24)
[2023-03-30] MEDS ORDERED: Vancomycin 1 GM in Premix 1 BAG IVPB SCH (18:00)
[2023-03-30 18:34] LABS: HBSAB Concentration Less than 8.00 mIU/mL; HBSAg Index 0.23 S/CO (0-0.99); Hep B Core Total Ab Non-Reactive (NonReactive); Hep B Core Total Index 0.13 S/CO (0-0.79); Hep B Surf AB Non-Reactive (NonReactive); Hep B Surf Ag Non-Reactive S/CO (NonReactive); Hep C IgG Ab Non-Reactive S/CO (NonReactive); Hep C Index 0.14 S/CO (0-0.79)
[2023-03-30] MEDS: Albumin 25% 25 GM (100 mL) BOT IVPB SCH (18:49)
[2023-03-30] MEDS: Potassium Chloride 40 MEQ in Premix 1 BAG IVPB SCH (18:49)
[2023-03-30] MEDS: Ondansetron PF 4 MG/2 ML Vial IVP PRN (18:51)
[2023-03-30] MEDS ORDERED: Morphine 2 MG/ML VIAL SLOW IVP SCH (22:15)
[2023-03-30] MEDS: Labetalol HCl 100 MG/20 ML VIAL SLOW IVP SCH (22:16)
[2023-03-31 04:25] LABS: Anion Gap 13 mmol/L (10-20); BUN (Urea Nitrogen) 30 mg/dL (8.9-20.6); Calc. Creatinine Clearance 113 mL/min (70-130); Calcium 8.6 mg/dL (7.8-10.44); Carbon Dioxide 26 mmol/L (22-29); Chloride 103 mmol/L (98-107); Estimated GFR 44; Glucose 102 mg/dL (70-105); Potassium 3.8 mmol/L (3.5-5.1); Sodium 138 mmol/L (136-145)
[2023-03-31] MEDS ORDERED: Vancomycin 1 GM in Premix 1 BAG IVPB SCH (06:00)
[2023-03-31] MEDS: Lorazepam 2 MG/ML VIAL SLOW IVP PRN (09:50)
[2023-03-31] MEDS: Activase 2 MG VIAL CATH SCH ×4 (14:41→14:56)
[2023-03-31] MEDS: Sterile Water 10 ML VIAL IVP SCH ×2 (14:43)
[2023-04-01 07:00] LABS: Anion Gap 14 mmol/L (10-20); BUN (Urea Nitrogen) 23 mg/dL (8.9-20.6); Calc. Creatinine Clearance 125 mL/min (70-130); Calcium 8.6 mg/dL (7.8-10.44); Carbon Dioxide 27 mmol/L (22-29); Chloride 99 mmol/L (98-107); Estimated GFR 50; Glucose 96 mg/dL (70-105); Sodium 136 mmol/L (136-145)
[2023-04-01] MEDS: Losartan 25 MG TAB PO SCH (12:28)
[2023-04-01] MEDS: QUEtiapine 25 MG TAB PO SCH (12:28)
[2023-04-02 05:00] LABS: Anion Gap 11 mmol/L (10-20); BUN (Urea Nitrogen) 22 mg/dL (8.9-20.6); Calc. Creatinine Clearance 122 mL/min (70-130); Calcium 8.5 mg/dL (7.8-10.44); Carbon Dioxide 29 mmol/L (22-29); Chloride 100 mmol/L (98-107); Estimated GFR 49; Glucose 80 mg/dL (70-105); Potassium 3.5 mmol/L (3.5-5.1); Sodium 136 mmol/L (136-145)
[2023-04-02] MEDS: NIFEdipine XL 90 MG ER.TAB PO SCH (13:16)
[2023-04-02] MEDS: QUEtiapine 25 MG TAB PO SCH (13:17)
[2023-04-02] MEDS: Losartan 25 MG TAB PO SCH (13:17)
[2023-04-03 06:06] LABS: Anion Gap 15 mmol/L (10-20); BUN (Urea Nitrogen) 16 mg/dL (8.9-20.6); Calc. Creatinine Clearance 123 mL/min (70-130); Calcium 8.8 mg/dL (7.8-10.44); Carbon Dioxide 26 mmol/L (22-29); Chloride 98 mmol/L (98-107); Estimated GFR 53; Glucose 84 mg/dL (70-105); Potassium 3.6 mmol/L (3.5-5.1); Sodium 135 mmol/L (136-145)
[2023-04-04 06:07] LABS: Anion Gap 14 mmol/L (10-20); BUN (Urea Nitrogen) 24 mg/dL (8.9-20.6); Calc. Creatinine Clearance 91 mL/min (70-130); Calcium 8.9 mg/dL (7.8-10.44); Carbon Dioxide 26 mmol/L (22-29); Chloride 99 mmol/L (98-107); Estimated GFR 37; Glucose 99 mg/dL (70-105); Potassium 3.7 mmol/L (3.5-5.1); Sodium 135 mmol/L (136-145)
[2023-04-04] MEDS: Amlodipine 5 MG TAB PO SCH (10:51)
[2023-04-04] MEDS: Ergocalciferol 1.25 MG(50,000 UNITS) CAP PO SCH (13:25)
[2023-04-05 05:28] LABS: #Basophils 0.1 thou/uL (0.0-0.2); #Eosinphils 0.2 thou/uL (0.0-0.7); #Monocytes 1.1 thou/uL (0.11-0.59); #Neutrophils 4.1 thou/uL (1.40-6.50); %Eosinophils 3.2 % (0.0-10.0); %Lymphocytes 22.3 % (21.0-51.0); %Neutrophils 58.1 % (42.0-75.0); Hematocrit 31.9 % (42.0-52.0); Hemoglobin 10.3 g/dL (14.0-18.0); Mean Corpuscular HGB CONC 32.3 g/dL (32.0-36.0); Mean Corpuscular Hemoglobin 29.2 pg (27.0-31.0); Mean Corpuscular Volume 90.4 fl (78.0-98.0); Mean Platelet Volume 10.5 fL (7.4-10.4); Platelet Count 388 10x3/uL (130-400); RBC Distribution Width 15.5 % (11.5-14.5); Red Blood Cell (RBC) Count 3.53 mill/uL (4.70-6.10)
[2023-04-05 05:45] VITALS: BMI 41.8
[2023-04-05 05:56] LABS: Anion Gap 11 mmol/L (10-20); BUN (Urea Nitrogen) 14 mg/dL (8.9-20.6); Calc. Creatinine Clearance 108 mL/min (70-130); Calcium 8.9 mg/dL (7.8-10.44); Carbon Dioxide 28 mmol/L (22-29); Chloride 98 mmol/L (98-107); Estimated GFR 46; Glucose 90 mg/dL (70-105); Potassium 3.2 mmol/L (3.5-5.1); Sodium 134 mmol/L (136-145)
[2023-04-05] MEDS: Losartan 25 MG TAB PO SCH (08:48)
[2023-04-05] MEDS ORDERED: Amlodipine 5 MG TAB PO SCH (09:00)
[2023-04-05] MEDS: ALPRAZolam 0.25 MG TAB PO PRN (11:22)
[2023-04-06 09:26] LABS: Anion Gap 12 mmol/L (10-20); BUN (Urea Nitrogen) 19 mg/dL (8.9-20.6); Calc. Creatinine Clearance 85 mL/min (70-130); Calcium 8.7 mg/dL (7.8-10.44); Carbon Dioxide 27 mmol/L (22-29); Chloride 98 mmol/L (98-107); Estimated GFR 35; Glucose 123 mg/dL (70-105); Potassium 3.2 mmol/L (3.5-5.1); Sodium 134 mmol/L (136-145)
[2023-04-06] MEDS: Potassium Chloride 20 MEQ TAB PO SCH (10:27)
[2023-04-06] MEDS ORDERED: Tuberculin PPD 0.1 ML VIAL I-DERMAL SCH (13:15)
[2023-04-07 06:28] LABS: #Basophils 0.1 thou/uL (0.0-0.2); #Eosinphils 0.3 thou/uL (0.0-0.7); #Neutrophils 3.5 thou/uL (1.40-6.50); %Basophils 1.2 % (0.0-1.0); %Eosinophils 4.7 % (0.0-10.0); %Lymphocytes 25.5 % (21.0-51.0); %Neutrophils 53.3 % (42.0-75.0); Hemoglobin 10.1 g/dL (14.0-18.0); Mean Corpuscular HGB CONC 31.6 g/dL (32.0-36.0); Mean Corpuscular Hemoglobin 28.9 pg (27.0-31.0); Mean Corpuscular Volume 91.7 fl (78.0-98.0); Mean Platelet Volume 10.5 fL (7.4-10.4); Platelet Count 359 10x3/uL (130-400); RBC Distribution Width 15.5 % (11.5-14.5); Red Blood Cell (RBC) Count 3.49 mill/uL (4.70-6.10); White Blood Cell (WBC) Count 6.6 10x3/uL (4.8-10.8)
[2023-04-07 06:44] LABS: Anion Gap 13 mmol/L (10-20); BUN (Urea Nitrogen) 22 mg/dL (8.9-20.6); Calc. Creatinine Clearance 84 mL/min (70-130); Carbon Dioxide 25 mmol/L (22-29); Chloride 100 mmol/L (98-107); Estimated GFR 34; Glucose 93 mg/dL (70-105); Potassium 3.2 mmol/L (3.5-5.1); Sodium 135 mmol/L (136-145)
[2023-04-07] MEDS: Tuberculin PPD 0.1 ML VIAL I-DERMAL SCH (20:50)
[2023-04-08 05:02] LABS: #Basophils 0.1 thou/uL (0.0-0.2); #Eosinphils 0.3 thou/uL (0.0-0.7); #Monocytes 1.2 thou/uL (0.11-0.59); #Neutrophils 3.8 thou/uL (1.40-6.50); %Basophils 1.3 % (0.0-1.0); %Eosinophils 3.5 % (0.0-10.0); %Monocytes 15.5 % (0.0-10.0); %Neutrophils 51.3 % (42.0-75.0); Hematocrit 33.1 % (42.0-52.0); Hemoglobin 10.5 g/dL (14.0-18.0); Mean Corpuscular HGB CONC 31.7 g/dL (32.0-36.0); Mean Corpuscular Hemoglobin 28.8 pg (27.0-31.0); Mean Corpuscular Volume 90.9 fl (78.0-98.0); Mean Platelet Volume 10.3 fL (7.4-10.4); Platelet Count 412 10x3/uL (130-400); RBC Distribution Width 15.4 % (11.5-14.5); Red Blood Cell (RBC) Count 3.64 mill/uL (4.70-6.10); White Blood Cell (WBC) Count 7.4 10x3/uL (4.8-10.8)
[2023-04-08 06:47] LABS: Anion Gap 16 mmol/L (10-20); BUN (Urea Nitrogen) 16 mg/dL (8.9-20.6); Calc. Creatinine Clearance 72 mL/min (70-130); Carbon Dioxide 23 mmol/L (22-29); Chloride 98 mmol/L (98-107); Estimated GFR 29; Glucose 96 mg/dL (70-105); Potassium 3.6 mmol/L (3.5-5.1); Sodium 133 mmol/L (136-145)
[2023-04-08 08:33] VITALS: BP 133/73; TEMP 98.1
[2023-04-09] MEDS ORDERED: READ PPD TEST SITE PO SCH (09:00)
== END 2023-04-08 14:55 | disposition home or self-care (01) | DRG 291 ==
LOC: ERS 16:01 → ERHOLD 18:01 → IMCU/EMU 23:22 → T4-A 04-04 20:39
PROVIDERS: ADMIT Internal Medicine; ATTEND Family Medicine
PROC: 5A09457 Assistance with Respiratory Ventilation, 24-96 Consecutive Hours, Continuous Positive Airway Pressure (ICD-10-PCS; 2023-03-28)
PROC: 06HY33Z Insertion of Infusion Device into Lower Vein, Percutaneous Approach (ICD-10-PCS; principal; 2023-03-30)
PROC: 4A033R1 Measurement of Arterial Saturation, Peripheral, Percutaneous Approach (ICD-10-PCS; 2023-03-30)
PROC: 30233J1 Transfusion of Nonautologous Serum Albumin into Peripheral Vein, Percutaneous Approach (ICD-10-PCS; 2023-03-30)
PROC: 5A1D70Z Performance of Urinary Filtration, Intermittent, Less than 6 Hours Per Day (ICD-10-PCS; 2023-04-04)
DX: I13.2 Hypertensive heart and chronic kidney disease with heart failure and with stage 5 chronic kidney disease, or end stage renal disease (principal); I50.33 Acute on chronic diastolic (congestive) heart failure; J96.01 Acute respiratory failure with hypoxia; N18.6 End stage renal disease; L03.116 Cellulitis of left lower limb; Z68.41 Body mass index [BMI] 40.0-44.9, adult; N17.9 Acute kidney failure, unspecified; E87.1 Hypo-osmolality and hyponatremia; Z79.899 Other long term (current) drug therapy; E78.5 Hyperlipidemia, unspecified; Z90.49 Acquired absence of other specified parts of digestive tract; F41.9 Anxiety disorder, unspecified; F32.A Depression, unspecified; Z82.49 Family history of ischemic heart disease and other diseases of the circulatory system; Z87.891 Personal history of nicotine dependence; Z99.2 Dependence on renal dialysis; E87.6 Hypokalemia; E66.01 Morbid (severe) obesity due to excess calories; D63.1 Anemia in chronic kidney disease; E88.09 Other disorders of plasma-protein metabolism, not elsewhere classified; I16.0 Hypertensive urgency; G47.33 Obstructive sleep apnea (adult) (pediatric)
CPT/HCPCS: 36415; 71045; 71046; 80048; 80053; 80202; 81001; 82805; 83605; 83735; 83880; 84484; 85025; 85379; 85610; 85730; 86704; 87040; 87804; 90935; 93005; 93970; 94660; 94760; 96365; 96366; 96375; 97139; G0257; J0692; J0696; J1642; J1644; J1940; J2001; J2060; J2405; J2997; J3370; J3490; J7030; Q5105; U0002

== ENCOUNTER 2024-02-29 13:43 | Inpatient (IN) | payer BC ==
[2024-02-29] MEDS ORDERED: Nitroglycerin 2% Ointment 1 INCH/1 GM Packet ONE (14:20)
[2024-02-29] MEDS ORDERED: Furosemide 100 MG (10 mL) VIAL ONE (14:20)
[2024-02-29 14:41] LABS: %Eosinophils 2.2 % (0.0-10.0); %Lymphocytes 18.7 % (21.0-51.0); %Monocytes 7.1 % (0.0-10.0); %Neutrophils 70.8 % (42.0-75.0); Hematocrit 34.6 % (42.0-52.0); Hemoglobin 11.3 g/dL (14.0-18.0); Mean Corpuscular HGB CONC 32.7 g/dL (32.0-36.0); Mean Corpuscular Hemoglobin 30.2 pg (27.0-31.0); Mean Corpuscular Volume 92.5 fL (78.0-98.0); Mean Platelet Volume 10.6 fL (7.4-10.4); Platelet Count 279 10x3/uL (130-400); RBC Distribution Width 14.6 % (11.5-14.5); Red Blood Cell (RBC) Count 3.74 mill/uL (4.70-6.10)
[2024-02-29 14:58] LABS: ALT (SGPT) 20 U/L (8-55); AST (SGOT) 22 U/L (5-34); Albumin 2.7 g/dL (3.5-5.0); Alkaline Phosphatase 89 U/L (40-110); Anion Gap 14 mmol/L (10-20); BUN (Urea Nitrogen) 31 mg/dL (8.9-20.6); Bilirubin, Total 0.5 mg/dL (0.2-1.2); Calc. Creatinine Clearance 0 mL/min (70-130); Calcium 8.3 mg/dL (7.8-10.44); Carbon Dioxide 21 mmol/L (22-29); Chloride 107 mmol/L (98-107); Estimated GFR 26; Globulin 4.2 g/dL (2.4-3.5); Glucose 100 mg/dL (70-105); Potassium 3.5 mmol/L (3.5-5.1); Protein, Total 6.9 g/dL (6.0-8.3); Sodium 138 mmol/L (136-145)
[2024-02-29 15:03] LABS: Troponin I 0.046 ng/mL (< 0.028)
[2024-02-29 15:44] LABS: Actual Bicarbonate (HCO3v) 20.2 mEq/L (22-28); Base Excess -3.4 mEq/L (-2.0 to +3.0); Calcium, Ionized (venous) 1.06 mmol/L (1.16-1.32); Chloride (VBG) 106 mmol/L (98-106); Hematocrit-VBG 39 % (42.0-52.0); Hemoglobin (Hb) 13.2 g/dL (13.1-17.2); Potassium (VBG) 4.08 mmol/L (3.70-5.30); Sodium 138 mmol/L (133-146); pH (venous) 7.415 (7.32-7.43)
[2024-02-29] MEDS ORDERED: Acetaminophen 325 MG TAB PO PRN (19:16)
[2024-02-29] MEDS ORDERED: Senokot S 8.6-50 MG TAB PO PRN (19:16)
[2024-02-29] MEDS: QUEtiapine 100 MG TAB PO SCH (21:27)
[2024-02-29] MEDS: Heparin 5,000 UNITS/ML VIAL SC SCH (21:27)
[2024-02-29 23:12] LABS: Troponin I 0.037 ng/mL (< 0.028)
[2024-03-01 04:00] LABS: #Basophils Less than 0.03 10x3/uL (0.0-0.2); #Eosinophils Less than 0.03 10x3/uL (0.0-0.7); %Basophils 0.2 % (0.0-1.0); %Lymphocytes 20.2 % (21.0-51.0); %Monocytes 6.7 % (0.0-10.0); %Neutrophils 72.7 % (42.0-75.0); Hematocrit 34.3 % (42.0-52.0); Hemoglobin 11.2 g/dL (14.0-18.0); Mean Corpuscular HGB CONC 32.7 g/dL (32.0-36.0); Mean Corpuscular Hemoglobin 30.4 pg (27.0-31.0); Mean Platelet Volume 10.8 fL (7.4-10.4); Platelet Count 303 10x3/uL (130-400); RBC Distribution Width 14.5 % (11.5-14.5); Red Blood Cell (RBC) Count 3.69 mill/uL (4.70-6.10)
[2024-03-01 04:21] LABS: Anion Gap 15 mmol/L (10-20); BUN (Urea Nitrogen) 33 mg/dL (8.9-20.6); Calc. Creatinine Clearance 73 mL/min (70-130); Calcium 8.4 mg/dL (7.8-10.44); Carbon Dioxide 18 mmol/L (22-29); Chloride 108 mmol/L (98-107); Estimated GFR 24; Glucose 114 mg/dL (70-105); Magnesium 2.5 mg/dL (1.6-2.6); Potassium 3.6 mmol/L (3.5-5.1); Sodium 137 mmol/L (136-145)
[2024-03-01 04:32] LABS: Troponin I 0.031 ng/mL (< 0.028)
[2024-03-01 05:22] VITALS: BMI 47.4
[2024-03-01] MEDS: Furosemide 40 MG (4 mL) VIAL SLOW IVP SCH (05:23)
[2024-03-01] MEDS: predniSONE 20 MG TAB PO SCH (09:03)
[2024-03-01] MEDS: Rosuvastatin 20 MG TAB PO SCH (09:03)
[2024-03-01] MEDS: BuPROPion XL 150 MG ER.TAB PO SCH (09:03)
[2024-03-01] MEDS: Ranolazine ER 500 MG TAB PO SCH (09:03)
[2024-03-01] MEDS: Spironolactone 25 MG TAB PO SCH (09:03)
[2024-03-01] MEDS: Losartan 25 MG TAB PO SCH (09:03)
[2024-03-01] MEDS: Metoprolol Succinate XL 25 MG ER.TAB PO SCH (09:04)
[2024-03-01] MEDS: Clopidogrel Bisulfate 75 MG TAB PO SCH (09:04)
[2024-03-01] MEDS: Empagliflozin 10 MG TAB PO SCH (09:04)
[2024-03-01] MEDS: Venlafaxine 75 MG TAB PO SCH (09:04)
[2024-03-01] MEDS: Azithromycin 250 MG TAB PO SCH (09:04)
[2024-03-01] MEDS: NIFEdipine XL 90 MG ER.TAB PO SCH (09:04)
[2024-03-01] MEDS ORDERED: Ipratropium/Albuterol 3 ML NEB EZPAP PRN (09:09)
[2024-03-01] MEDS: Metolazone 5 MG TAB PO SCH (18:02)
[2024-03-01] MEDS ORDERED: Atorvastatin Calcium 40 MG TAB PO SCH (21:00)
[2024-03-02 04:38] LABS: #Basophils 0.05 10x3/uL (0.0-0.2); %Basophils 0.5 % (0.0-1.0); %Eosinophils 0.5 % (0.0-10.0); %Lymphocytes 25.9 % (21.0-51.0); %Monocytes 7.9 % (0.0-10.0); %Neutrophils 64.8 % (42.0-75.0); Hematocrit 33.5 % (42.0-52.0); Hemoglobin 11.2 g/dL (14.0-18.0); Mean Corpuscular HGB CONC 33.4 g/dL (32.0-36.0); Mean Corpuscular Hemoglobin 30.5 pg (27.0-31.0); Mean Corpuscular Volume 91.3 fL (78.0-98.0); Mean Platelet Volume 12.2 fL (7.4-10.4); Platelet Count 265 10x3/uL (130-400); RBC Distribution Width 14.6 % (11.5-14.5); Red Blood Cell (RBC) Count 3.67 mill/uL (4.70-6.10)
[2024-03-02 04:53] LABS: Anion Gap 17 mmol/L (10-20); BUN (Urea Nitrogen) 47 mg/dL (8.9-20.6); Calc. Creatinine Clearance 66 mL/min (70-130); Calcium 8.5 mg/dL (7.8-10.44); Carbon Dioxide 17 mmol/L (22-29); Chloride 108 mmol/L (98-107); Estimated GFR 22; Glucose 87 mg/dL (70-105); Magnesium 2.5 mg/dL (1.6-2.6); Potassium 3.8 mmol/L (3.5-5.1); Sodium 138 mmol/L (136-145)
[2024-03-02] MEDS: Metolazone 2.5 MG TAB PO SCH (08:09)
[2024-03-02] MEDS: Lorazepam 1 MG TAB PO PRN (08:09)
[2024-03-02 11:40] LABS: Body Surface Area 2.8
[2024-03-02] MEDS: Sodium Bicarbonate Tab 325 MG TAB PO SCH (13:38)
[2024-03-02] MEDS ORDERED: methylPREDNISolone Sod Succ 40 MG VIAL IVP SCH (15:35)
[2024-03-02] MEDS: methylPREDNISolone Sod Succ 40 MG VIAL IVP SCH ×2 (17:03→20:44)
[2024-03-03 04:53] LABS: #Basophils Less than 0.03 10x3/uL (0.0-0.2); #Eosinophils Less than 0.03 10x3/uL (0.0-0.7); %Monocytes 2.8 % (0.0-10.0); Hemoglobin 10.9 g/dL (14.0-18.0); Mean Corpuscular HGB CONC 32.1 g/dL (32.0-36.0); Mean Corpuscular Hemoglobin 29.8 pg (27.0-31.0); Mean Corpuscular Volume 92.9 fL (78.0-98.0); Mean Platelet Volume 11.3 fL (7.4-10.4); Platelet Count 267 10x3/uL (130-400); RBC Distribution Width 14.4 % (11.5-14.5); Red Blood Cell (RBC) Count 3.66 mill/uL (4.70-6.10)
[2024-03-03 05:08] LABS: Anion Gap 14 mmol/L (10-20); BUN (Urea Nitrogen) 61 mg/dL (8.9-20.6); Calc. Creatinine Clearance 60 mL/min (70-130); Calcium 8.4 mg/dL (7.8-10.44); Carbon Dioxide 22 mmol/L (22-29); Chloride 105 mmol/L (98-107); Estimated GFR 20; Glucose 126 mg/dL (70-105); Magnesium 2.6 mg/dL (1.6-2.6); Potassium 3.9 mmol/L (3.5-5.1); Sodium 137 mmol/L (136-145)
[2024-03-03] MEDS: Calcitriol 0.25 MCG CAP PO SCH (08:14)
[2024-03-03] MEDS: Losartan 25 MG TAB PO SCH (08:15)
[2024-03-04 04:59] LABS: #Basophils Less than 0.03 10x3/uL (0.0-0.2); #Eosinophils Less than 0.03 10x3/uL (0.0-0.7); %Basophils 0.2 % (0.0-1.0); %Eosinophils 0.2 % (0.0-10.0); %Lymphocytes 19.8 % (21.0-51.0); %Monocytes 6.4 % (0.0-10.0); %Neutrophils 72.9 % (42.0-75.0); Hematocrit 34.1 % (42.0-52.0); Hemoglobin 11.1 g/dL (14.0-18.0); Mean Corpuscular HGB CONC 32.6 g/dL (32.0-36.0); Mean Corpuscular Hemoglobin 29.7 pg (27.0-31.0); Mean Corpuscular Volume 91.2 fL (78.0-98.0); Mean Platelet Volume 11.1 fL (7.4-10.4); Platelet Count 298 10x3/uL (130-400); RBC Distribution Width 14.5 % (11.5-14.5); Red Blood Cell (RBC) Count 3.74 mill/uL (4.70-6.10)
[2024-03-04 05:16] LABS: ALT (SGPT) 13 U/L (Less than 45); AST (SGOT) 20 U/L (11-34); Alkaline Phosphatase 78 U/L (40-110); Anion Gap 16 mmol/L (10-20); BUN (Urea Nitrogen) 72 mg/dL (8.9-20.6); Bilirubin, Total 0.4 mg/dL (0.3-1.2); Calc. Creatinine Clearance 62 mL/min (70-130); Calcium 8.7 mg/dL (7.8-10.44); Carbon Dioxide 22 mmol/L (22-29); Chloride 103 mmol/L (98-107); Estimated GFR 20; Globulin 3.7 g/dL (2.4-3.5); Glucose 127 mg/dL (70-105); Potassium 3.7 mmol/L (3.5-5.1); Protein, Total 6.7 g/dL (6.0-8.3); Sodium 137 mmol/L (136-145)
[2024-03-04] MEDS: hydrALAZINE 25 MG TAB PO SCH (09:30)
[2024-03-04] MEDS: methylPREDNISolone Sod Succ 40 MG VIAL IVP SCH (20:53)
[2024-03-05 04:46] LABS: #Basophils Less than 0.03 10x3/uL (0.0-0.2); %Basophils 0.1 % (0.0-1.0); %Eosinophils 0.3 % (0.0-10.0); %Lymphocytes 16.5 % (21.0-51.0); %Neutrophils 76.8 % (42.0-75.0); Hematocrit 36.8 % (42.0-52.0); Hemoglobin 12.1 g/dL (14.0-18.0); Mean Corpuscular HGB CONC 32.9 g/dL (32.0-36.0); Mean Corpuscular Hemoglobin 29.9 pg (27.0-31.0); Mean Corpuscular Volume 90.9 fL (78.0-98.0); Mean Platelet Volume 11.5 fL (7.4-10.4); Platelet Count 299 10x3/uL (130-400); RBC Distribution Width 14.4 % (11.5-14.5); Red Blood Cell (RBC) Count 4.05 mill/uL (4.70-6.10)
[2024-03-05 06:42] LABS: ALT (SGPT) 15 U/L (Less than 45); AST (SGOT) 20 U/L (11-34); Alkaline Phosphatase 82 U/L (40-110); BUN (Urea Nitrogen) 81 mg/dL (8.9-20.6); Bilirubin, Total 0.5 mg/dL (0.3-1.2); Calc. Creatinine Clearance 62 mL/min (70-130); Calcium 8.8 mg/dL (7.8-10.44); Carbon Dioxide 23 mmol/L (22-29); Estimated GFR 21; Globulin 3.9 g/dL (2.4-3.5); Glucose 126 mg/dL (70-105); Protein, Total 6.9 g/dL (6.0-8.3)
[2024-03-05 08:34] LABS: Anion Gap 17 mmol/L (10-20); Chloride 102 mmol/L (98-107); Potassium 3.7 mmol/L (3.5-5.1); Sodium 137 mmol/L (136-145)
[2024-03-05] MEDS: Metoprolol Succinate XL 25 MG ER.TAB PO SCH (11:52)
[2024-03-05 12:35] VITALS: BP 140/67; TEMP 97.6
[2024-03-09] MEDS ORDERED: Ergocalciferol 1.25 MG(50,000 UNITS) CAP PO SCH (09:00)
== END 2024-03-05 14:00 | disposition home or self-care (01) | DRG 291 ==
LOC: ERS 13:43 → 2NO 18:13
PROVIDERS: ADMIT Student in an Organized Health Care Education/Training Program; ATTEND Hospitalist
DX: I13.0 Hypertensive heart and chronic kidney disease with heart failure and stage 1 through stage 4 chronic kidney disease, or unspecified chronic kidney disease (principal); I50.33 Acute on chronic diastolic (congestive) heart failure; J96.21 Acute and chronic respiratory failure with hypoxia; N17.9 Acute kidney failure, unspecified; N18.4 Chronic kidney disease, stage 4 (severe); E87.20 Acidosis, unspecified; N25.81 Secondary hyperparathyroidism of renal origin; I73.9 Peripheral vascular disease, unspecified; E78.5 Hyperlipidemia, unspecified; G47.33 Obstructive sleep apnea (adult) (pediatric); D63.1 Anemia in chronic kidney disease; E88.09 Other disorders of plasma-protein metabolism, not elsewhere classified; Z98.890 Other specified postprocedural states; Z87.891 Personal history of nicotine dependence; Z90.49 Acquired absence of other specified parts of digestive tract
CPT/HCPCS: 36415; 71045; 76770; 80048; 80053; 82306; 82575; 82805; 83735; 83880; 83970; 84484; 85025; 93005; 93306; 94660; 94760; 96374; J1644; J1940; J2919; J7512

== ENCOUNTER 2024-09-08 16:28 | Inpatient (IN) | payer MEDICAID, OTHER ==
[2024-09-08 22:17] VITALS: BMI 46.4
[2024-09-08] MEDS: QUEtiapine 100 MG TAB PO SCH (22:27)
[2024-09-08] MEDS: Heparin 5,000 UNITS/ML VIAL SC SCH (22:27)
[2024-09-09 05:32] LABS: #Basophils 0.06 10x3/uL (0.0-0.2); #Eosinophils 0.25 10x3/uL (0.0-0.7); #Monocytes 0.58 10x3/uL (0.11-0.59); #Neutrophils 7.08 10x3/uL (1.40-6.50); %Basophils 0.7 % (0.0-1.0); %Eosinophils 2.8 % (0.0-10.0); %Lymphocytes 11.8 % (21.0-51.0); %Monocytes 6.4 % (0.0-10.0); %Neutrophils 77.9 % (42.0-75.0); Hematocrit 29.0 % (42.0-52.0); Hemoglobin 9.5 g/dL (14.0-18.0); Mean Corpuscular Hemoglobin 28.0 pg (27.0-31.0); Mean Corpuscular Volume 85.5 fL (78.0-98.0); Platelet Count 288 10x3/uL (130-400); Red Blood Cell (RBC) Count 3.39 mill/uL (4.70-6.10); White Blood Cell (WBC) Count 9.08 10x3/uL (4.8-10.8)
[2024-09-09 05:58] LABS: Albumin 2.1 g/dL (3.1-4.5); Anion Gap 20 mmol/L (10-20); BUN (Urea Nitrogen) 74 mg/dL (8.9-20.6); BUN/Creatinine Ratio 15.68; Calc. Creatinine Clearance 44 mL/min (70-130); Calcium 8.5 mg/dL (7.8-10.44); Carbon Dioxide 16 mmol/L (22-29); Chloride 102 mmol/L (98-107); Glucose 88 mg/dL (70-105); Potassium 3.5 mmol/L (3.5-5.1); Sodium 134 mmol/L (136-145)
[2024-09-09] MEDS ORDERED: Furosemide 20 MG (2 mL) VIAL SLOW IVP SCH (06:00)
[2024-09-09] MEDS: NIFEdipine XL 90 MG ER.TAB PO SCH (09:05)
[2024-09-09] MEDS: BuPROPion XL 150 MG ER.TAB PO SCH (09:06)
[2024-09-09] MEDS: Ezetimibe 10 MG TAB PO SCH (09:06)
[2024-09-09] MEDS: Pantoprazole 40 MG DR.TAB PO SCH (09:06)
[2024-09-09] MEDS: Spironolactone 25 MG TAB PO SCH (09:06)
[2024-09-09] MEDS: QUEtiapine 100 MG TAB PO SCH (09:07)
[2024-09-09] MEDS: Sodium Bicarbonate Tab 325 MG TAB PO SCH (09:08)
[2024-09-09] MEDS ORDERED: Heparin 10,000 UNITS/ 10 ML VIAL ONE (09:51)
[2024-09-09 12:13] LABS: HBSAB Concentration Less than 8.00 mIU/mL; Hep B Core Total Ab NONREACTIVE (NonReactive); Hep B Core Total Index 0.08 S/CO (0-0.79); Hep B Surf Ag NONREACTIVE S/CO (NonReactive); Hep C IgG Ab NONREACTIVE S/CO (NonReactive); Hep C Index 0.08 S/CO (0-0.79)
[2024-09-09] MEDS: Albumin 25% 25 GM (100 mL) BOT IVPB SCH (12:20)
[2024-09-09] MEDS: EPOETIN ALFA-EPBX (ESRD) 10,000 UNITS/ML VIAL SC SCH (12:22)
[2024-09-09] MEDS: Rosuvastatin 20 MG TAB PO SCH (22:03)
[2024-09-10] MEDS: hydrALAZINE 20 MG/ML VIAL SLOW IVP PRN (03:33)
[2024-09-10 03:56] LABS: #Basophils 0.07 10x3/uL (0.0-0.2); #Eosinophils 0.28 10x3/uL (0.0-0.7); #Monocytes 0.59 10x3/uL (0.11-0.59); #Neutrophils 7.99 10x3/uL (1.40-6.50); %Basophils 0.7 % (0.0-1.0); %Eosinophils 2.8 % (0.0-10.0); %Lymphocytes 9.9 % (21.0-51.0); %Monocytes 5.9 % (0.0-10.0); %Neutrophils 80.3 % (42.0-75.0); Hematocrit 26.5 % (42.0-52.0); Hemoglobin 8.7 g/dL (14.0-18.0); Mean Corpuscular Hemoglobin 28.2 pg (27.0-31.0); Mean Corpuscular Volume 86.0 fL (78.0-98.0); Platelet Count 292 10x3/uL (130-400); Red Blood Cell (RBC) Count 3.08 mill/uL (4.70-6.10); White Blood Cell (WBC) Count 9.96 10x3/uL (4.8-10.8)
[2024-09-10 04:10] LABS: Anion Gap 18 mmol/L (10-20); BUN (Urea Nitrogen) 62 mg/dL (8.9-20.6); Calc. Creatinine Clearance 55 mL/min (70-130); Calcium 8.8 mg/dL (7.8-10.44); Carbon Dioxide 20 mmol/L (22-29); Chloride 100 mmol/L (98-107); Glucose 91 mg/dL (70-105); Potassium 3.4 mmol/L (3.5-5.1); Sodium 135 mmol/L (136-145)
[2024-09-10] MEDS: Acetaminophen 325 MG TAB PO PRN (05:04)
[2024-09-10] MEDS ORDERED: Heparin 10,000 UNITS/ 10 ML VIAL ONE (10:07)
[2024-09-10] MEDS: Cefepime 0.5 GM, Admixture Fee 1 EACH in Sodium Chloride 0.9% 100 ML IVPB SCH (16:33)
[2024-09-11 02:45] LABS: #Basophils 0.11 10x3/uL (0.0-0.2); #Eosinophils 0.54 10x3/uL (0.0-0.7); #Monocytes 0.65 10x3/uL (0.11-0.59); #Neutrophils 7.52 10x3/uL (1.40-6.50); %Basophils 1.0 % (0.0-1.0); %Eosinophils 5.1 % (0.0-10.0); %Lymphocytes 16.3 % (21.0-51.0); %Monocytes 6.1 % (0.0-10.0); %Neutrophils 71.1 % (42.0-75.0); Hematocrit 27.3 % (42.0-52.0); Hemoglobin 8.9 g/dL (14.0-18.0); Mean Corpuscular Hemoglobin 28.1 pg (27.0-31.0); Mean Corpuscular Volume 86.1 fL (78.0-98.0); Platelet Count 316 10x3/uL (130-400); Red Blood Cell (RBC) Count 3.17 mill/uL (4.70-6.10); White Blood Cell (WBC) Count 10.58 10x3/uL (4.8-10.8)
[2024-09-11 03:24] LABS: Anion Gap 16 mmol/L (10-20); BUN (Urea Nitrogen) 39 mg/dL (8.9-20.6); Calc. Creatinine Clearance 68 mL/min (70-130); Calcium 9.0 mg/dL (7.8-10.44); Carbon Dioxide 28 mmol/L (22-29); Chloride 98 mmol/L (98-107); Glucose 83 mg/dL (70-105); Potassium 3.4 mmol/L (3.5-5.1); Sodium 139 mmol/L (136-145)
[2024-09-11] MEDS ORDERED: Heparin 10,000 UNITS/ 10 ML VIAL ONE (10:10)
[2024-09-12 03:49] LABS: #Basophils 0.13 10x3/uL (0.0-0.2); #Eosinophils 0.67 10x3/uL (0.0-0.7); #Monocytes 0.70 10x3/uL (0.11-0.59); #Neutrophils 6.60 10x3/uL (1.40-6.50); %Basophils 1.3 % (0.0-1.0); %Eosinophils 6.6 % (0.0-10.0); %Lymphocytes 19.0 % (21.0-51.0); %Monocytes 6.9 % (0.0-10.0); %Neutrophils 65.5 % (42.0-75.0); Hematocrit 28.3 % (42.0-52.0); Hemoglobin 9.1 g/dL (14.0-18.0); Mean Corpuscular Hemoglobin 28.3 pg (27.0-31.0); Mean Corpuscular Volume 87.9 fL (78.0-98.0); Platelet Count 348 10x3/uL (130-400); Red Blood Cell (RBC) Count 3.22 mill/uL (4.70-6.10); White Blood Cell (WBC) Count 10.09 10x3/uL (4.8-10.8)
[2024-09-12 04:15] LABS: Anion Gap 17 mmol/L (10-20); BUN (Urea Nitrogen) 62 mg/dL (8.9-20.6); Calc. Creatinine Clearance 55 mL/min (70-130); Calcium 9.1 mg/dL (7.8-10.44); Carbon Dioxide 25 mmol/L (22-29); Chloride 98 mmol/L (98-107); Glucose 91 mg/dL (70-105); Potassium 3.6 mmol/L (3.5-5.1); Sodium 136 mmol/L (136-145)
[2024-09-12] MEDS: Furosemide 40 MG (4 mL) VIAL SLOW IVP SCH (05:08)
[2024-09-13 04:53] LABS: #Basophils 0.13 10x3/uL (0.0-0.2); #Eosinophils 0.74 10x3/uL (0.0-0.7); #Monocytes 0.56 10x3/uL (0.11-0.59); #Neutrophils 5.77 10x3/uL (1.40-6.50); %Basophils 1.4 % (0.0-1.0); %Eosinophils 8.1 % (0.0-10.0); %Lymphocytes 20.4 % (21.0-51.0); %Monocytes 6.1 % (0.0-10.0); %Neutrophils 63.3 % (42.0-75.0); Hematocrit 28.9 % (42.0-52.0); Hemoglobin 9.4 g/dL (14.0-18.0); Mean Corpuscular Hemoglobin 27.6 pg (27.0-31.0); Mean Corpuscular Volume 85.0 fL (78.0-98.0); Platelet Count 359 10x3/uL (130-400); Red Blood Cell (RBC) Count 3.40 mill/uL (4.70-6.10); White Blood Cell (WBC) Count 9.12 10x3/uL (4.8-10.8)
[2024-09-13 05:01] LABS: Albumin 2.5 g/dL (3.1-4.5); Anion Gap 18 mmol/L (10-20); BUN (Urea Nitrogen) 69 mg/dL (8.9-20.6); BUN/Creatinine Ratio 17.08; Calc. Creatinine Clearance 48 mL/min (70-130); Calcium 9.1 mg/dL (7.8-10.44); Carbon Dioxide 26 mmol/L (22-29); Chloride 98 mmol/L (98-107); Glucose 87 mg/dL (70-105); Potassium 3.6 mmol/L (3.5-5.1); Sodium 138 mmol/L (136-145)
[2024-09-13] MEDS ORDERED: Heparin 10,000 UNITS/ 10 ML VIAL ONE (11:16)
[2024-09-13] MEDS: Ondansetron PF 4 MG/2 ML Vial IVP PRN (15:31)
[2024-09-14 05:49] LABS: Albumin 2.6 g/dL (3.1-4.5); Anion Gap 18 mmol/L (10-20); BUN (Urea Nitrogen) 46 mg/dL (8.9-20.6); BUN/Creatinine Ratio 13.45; Calc. Creatinine Clearance 57 mL/min (70-130); Calcium 9.3 mg/dL (7.8-10.44); Carbon Dioxide 26 mmol/L (22-29); Chloride 100 mmol/L (98-107); Glucose 86 mg/dL (70-105); Potassium 4.0 mmol/L (3.5-5.1); Sodium 140 mmol/L (136-145)
[2024-09-14] MEDS ORDERED: Tuberculin PPD 0.1 ML SYRINGE (10 TEST VIAL) I-DERMAL SCH (12:30)
[2024-09-14 13:56] VITALS: BMI 43.4
[2024-09-14] MEDS: Tuberculin PPD 0.1 ML SYRINGE (10 TEST VIAL) I-DERMAL SCH (15:31)
[2024-09-15 05:40] LABS: #Basophils 0.11 10x3/uL (0.0-0.2); #Eosinophils 0.55 10x3/uL (0.0-0.7); #Monocytes 0.84 10x3/uL (0.11-0.59); #Neutrophils 6.21 10x3/uL (1.40-6.50); %Basophils 1.1 % (0.0-1.0); %Eosinophils 5.7 % (0.0-10.0); %Lymphocytes 19.8 % (21.0-51.0); %Monocytes 8.7 % (0.0-10.0); %Neutrophils 64.0 % (42.0-75.0); Hematocrit 32.6 % (42.0-52.0); Hemoglobin 10.3 g/dL (14.0-18.0); Mean Corpuscular Hemoglobin 27.6 pg (27.0-31.0); Mean Corpuscular Volume 87.4 fL (78.0-98.0); Platelet Count 346 10x3/uL (130-400); Red Blood Cell (RBC) Count 3.73 mill/uL (4.70-6.10); White Blood Cell (WBC) Count 9.70 10x3/uL (4.8-10.8)
[2024-09-15 06:01] LABS: Albumin 2.7 g/dL (3.1-4.5); Anion Gap 16 mmol/L (10-20); BUN (Urea Nitrogen) 53 mg/dL (8.9-20.6); BUN/Creatinine Ratio 13.56; Calc. Creatinine Clearance 50 mL/min (70-130); Calcium 9.1 mg/dL (7.8-10.44); Carbon Dioxide 24 mmol/L (22-29); Chloride 101 mmol/L (98-107); Glucose 91 mg/dL (70-105); Potassium 3.7 mmol/L (3.5-5.1); Sodium 137 mmol/L (136-145)
[2024-09-15] MEDS ORDERED: Heparin 10,000 UNITS/ 10 ML VIAL ONE (09:06)
[2024-09-15] MEDS: ALPRAZolam 0.25 MG TAB PO PRN (12:00)
[2024-09-16 04:53] LABS: Albumin 2.9 g/dL (3.1-4.5); Anion Gap 17 mmol/L (10-20); BUN (Urea Nitrogen) 39 mg/dL (8.9-20.6); BUN/Creatinine Ratio 10.86; Calc. Creatinine Clearance 54 mL/min (70-130); Calcium 9.4 mg/dL (7.8-10.44); Carbon Dioxide 26 mmol/L (22-29); Chloride 98 mmol/L (98-107); Glucose 95 mg/dL (70-105); Potassium 4.0 mmol/L (3.5-5.1); Sodium 137 mmol/L (136-145)
[2024-09-17 00:18] VITALS: TEMP 97.8
[2024-09-17 05:36] LABS: #Basophils 0.14 10x3/uL (0.0-0.2); #Eosinophils 0.51 10x3/uL (0.0-0.7); #Monocytes 1.06 10x3/uL (0.11-0.59); #Neutrophils 7.44 10x3/uL (1.40-6.50); %Basophils 1.2 % (0.0-1.0); %Eosinophils 4.5 % (0.0-10.0); %Lymphocytes 19.2 % (21.0-51.0); %Monocytes 9.3 % (0.0-10.0); %Neutrophils 65.0 % (42.0-75.0); Hematocrit 34.7 % (42.0-52.0); Hemoglobin 11.1 g/dL (14.0-18.0); Mean Corpuscular Hemoglobin 27.9 pg (27.0-31.0); Mean Corpuscular Volume 87.2 fL (78.0-98.0); Platelet Count 412 10x3/uL (130-400); Red Blood Cell (RBC) Count 3.98 mill/uL (4.70-6.10); White Blood Cell (WBC) Count 11.43 10x3/uL (4.8-10.8)
[2024-09-17 06:12] LABS: Albumin 2.8 g/dL (3.1-4.5); Anion Gap 17 mmol/L (10-20); BUN (Urea Nitrogen) 52 mg/dL (8.9-20.6); BUN/Creatinine Ratio 12.44; Calc. Creatinine Clearance 46 mL/min (70-130); Calcium 9.6 mg/dL (7.8-10.44); Carbon Dioxide 23 mmol/L (22-29); Chloride 97 mmol/L (98-107); Glucose 91 mg/dL (70-105); Potassium 3.7 mmol/L (3.5-5.1); Sodium 133 mmol/L (136-145)
[2024-09-17] MEDS: READ PPD TEST SITE PO SCH (08:05)
[2024-09-17 09:23] VITALS: BP 169/100
[2024-09-17] MEDS ORDERED: Heparin 10,000 UNITS/ 10 ML VIAL ONE (10:05)
== END 2024-09-17 13:27 | disposition home or self-care (01) | DRG 682 ==
LOC: IMCU/EMU 20:19 → T4-B 09-14 15:50
PROVIDERS: ADMIT Hospitalist; ATTEND Internal Medicine
PROC: 06HY33Z Insertion of Infusion Device into Lower Vein, Percutaneous Approach (ICD-10-PCS; principal; 2024-09-09)
PROC: 3E03329 Introduction of Other Anti-infective into Peripheral Vein, Percutaneous Approach (ICD-10-PCS; 2024-09-09)
PROC: 30233J1 Transfusion of Nonautologous Serum Albumin into Peripheral Vein, Percutaneous Approach (ICD-10-PCS; 2024-09-09)
PROC: 5A1D70Z Performance of Urinary Filtration, Intermittent, Less than 6 Hours Per Day (ICD-10-PCS; 2024-09-09)
PROC: 5A09357 Assistance with Respiratory Ventilation, Less than 24 Consecutive Hours, Continuous Positive Airway Pressure (ICD-10-PCS; 2024-09-09)
DX: N17.9 Acute kidney failure, unspecified (principal); I50.43 Acute on chronic combined systolic (congestive) and diastolic (congestive) heart failure; J96.20 Acute and chronic respiratory failure, unspecified whether with hypoxia or hypercapnia; I13.2 Hypertensive heart and chronic kidney disease with heart failure and with stage 5 chronic kidney disease, or end stage renal disease; E87.20 Acidosis, unspecified; E87.1 Hypo-osmolality and hyponatremia; Z68.42 Body mass index [BMI] 45.0-49.9, adult; E66.2 Morbid (severe) obesity with alveolar hypoventilation; L97.419 Non-pressure chronic ulcer of right heel and midfoot with unspecified severity; N18.6 End stage renal disease; I25.10 Atherosclerotic heart disease of native coronary artery without angina pectoris; F32.A Depression, unspecified; L03.031 Cellulitis of right toe; E83.39 Other disorders of phosphorus metabolism; E88.09 Other disorders of plasma-protein metabolism, not elsewhere classified; I73.9 Peripheral vascular disease, unspecified; F41.9 Anxiety disorder, unspecified; E78.5 Hyperlipidemia, unspecified; E87.6 Hypokalemia; Z79.899 Other long term (current) drug therapy; Z95.5 Presence of coronary angioplasty implant and graft; Z90.49 Acquired absence of other specified parts of digestive tract; Z95.820 Peripheral vascular angioplasty status with implants and grafts; E86.0 Dehydration; D63.1 Anemia in chronic kidney disease; Z87.891 Personal history of nicotine dependence; N18.4 Chronic kidney disease, stage 4 (severe); G25.81 Restless legs syndrome
CPT/HCPCS: 36415; 36416; 80048; 80069; 84100; 85025; 86580; 86704; 86706; 86803; 87340; 90935; 94640; 94660; 97139; G0257; J0360; J0692; J1644; J1940; J2060; J2405; J7620; P9047; Q5105

== ENCOUNTER 2024-09-20 21:40 | Emergency (ER) | payer MEDICAID, OTHER ==
[2024-09-20 22:07] LABS: #Basophils 0.18 10x3/uL (0.0-0.2); #Eosinophils 0.16 10x3/uL (0.0-0.7); #Monocytes 0.91 10x3/uL (0.11-0.59); #Neutrophils 7.70 10x3/uL (1.40-6.50); %Basophils 1.6 % (0.0-1.0); %Eosinophils 1.4 % (0.0-10.0); %Lymphocytes 21.1 % (21.0-51.0); %Monocytes 7.9 % (0.0-10.0); %Neutrophils 67.0 % (42.0-75.0); Hematocrit 35.7 % (42.0-52.0); Hemoglobin 12.0 g/dL (14.0-18.0); Mean Corpuscular Hemoglobin 28.2 pg (27.0-31.0); Mean Corpuscular Volume 83.8 fL (78.0-98.0); Platelet Count 496 10x3/uL (130-400); Red Blood Cell (RBC) Count 4.26 mill/uL (4.70-6.10); White Blood Cell (WBC) Count 11.49 10x3/uL (4.8-10.8)
[2024-09-20] MEDS ORDERED: Acetaminophen 500 MG TAB ONE (22:19)
[2024-09-20 22:36] LABS: ALT (SGPT) 50 U/L (Less than 45); AST (SGOT) 49 U/L (11-34); Albumin 3.1 g/dL (3.1-4.5); Alkaline Phosphatase 99 U/L (40-110); Anion Gap 24 mmol/L (10-20); BUN (Urea Nitrogen) 28 mg/dL (8.9-20.6); Bilirubin, Total 0.5 mg/dL (0.3-1.2); Calc. Creatinine Clearance 0 mL/min (70-130); Calcium 9.3 mg/dL (7.8-10.44); Carbon Dioxide 23 mmol/L (22-29); Chloride 95 mmol/L (98-107); Globulin 5.5 g/dL (2.4-3.5); Glucose 94 mg/dL (70-105); Potassium 3.9 mmol/L (3.5-5.1); Sodium 138 mmol/L (136-145)
[2024-09-20 22:39] LABS: Troponin I 0.094 ng/mL (< 0.028)
[2024-09-21 00:12] LABS: Troponin I 0.080 ng/mL (< 0.028)
[2024-09-21] MEDS ORDERED: Boostrix 0.5 ML (Tdap) VIAL (>/=7 yrs of age) ONE (00:16)
== END 2024-09-21 00:30 | disposition home or self-care (01) ==
LOC: ERS 21:40
DX: S50.311A Abrasion of right elbow, initial encounter (principal); R42 Dizziness and giddiness; I25.10 Atherosclerotic heart disease of native coronary artery without angina pectoris; I11.0 Hypertensive heart disease with heart failure; I50.9 Heart failure, unspecified; Z99.2 Dependence on renal dialysis; F17.210 Nicotine dependence, cigarettes, uncomplicated; Z23 Encounter for immunization; Z79.02 Long term (current) use of antithrombotics/antiplatelets; Z79.899 Other long term (current) drug therapy; W19.XXXA Unspecified fall, initial encounter
CPT/HCPCS: 70450; 71045; 72125; 72170; 80053; 84484; 85025; 90471; 90715; 93005; 94760

== ENCOUNTER 2024-11-05 16:16 | Emergency (ER) | payer OTHER ==
[2024-11-05 16:46] LABS: #Basophils 0.09 10x3/uL (0.0-0.2); #Eosinophils 0.25 10x3/uL (0.0-0.7); #Monocytes 0.63 10x3/uL (0.11-0.59); #Neutrophils 4.10 10x3/uL (1.40-6.50); %Basophils 1.3 % (0.0-1.0); %Eosinophils 3.7 % (0.0-10.0); %Lymphocytes 24.6 % (21.0-51.0); %Monocytes 9.3 % (0.0-10.0); %Neutrophils 60.8 % (42.0-75.0); Hematocrit 36.8 % (42.0-52.0); Hemoglobin 11.6 g/dL (14.0-18.0); Mean Corpuscular Hemoglobin 28.4 pg (27.0-31.0); Mean Corpuscular Volume 90.0 fL (78.0-98.0); Platelet Count 253 10x3/uL (130-400); Red Blood Cell (RBC) Count 4.09 mill/uL (4.70-6.10); White Blood Cell (WBC) Count 6.75 10x3/uL (4.8-10.8)
[2024-11-05 17:14] LABS: ALT (SGPT) 11 U/L (Less than 45); AST (SGOT) 18 U/L (11-34); Albumin 2.9 g/dL (3.1-4.5); Alkaline Phosphatase 83 U/L (40-110); Anion Gap 21 mmol/L (10-20); BUN (Urea Nitrogen) 11 mg/dL (8.9-20.6); Bilirubin, Total 0.6 mg/dL (0.3-1.2); Calc. Creatinine Clearance 0 mL/min (70-130); Calcium 8.7 mg/dL (7.8-10.44); Carbon Dioxide 22 mmol/L (22-29); Chloride 97 mmol/L (98-107); Globulin 3.6 g/dL (2.4-3.5); Glucose 96 mg/dL (70-105); Lipase 36 U/L (8-78); Potassium 3.2 mmol/L (3.5-5.1); Sodium 137 mmol/L (136-145)
== END 2024-11-05 19:00 ==
LOC: ERS 16:16
DX: R07.89 Other chest pain (principal); I13.0 Hypertensive heart and chronic kidney disease with heart failure and stage 1 through stage 4 chronic kidney disease, or unspecified chronic kidney disease; I50.9 Heart failure, unspecified; N18.9 Chronic kidney disease, unspecified; I25.10 Atherosclerotic heart disease of native coronary artery without angina pectoris; E78.5 Hyperlipidemia, unspecified; F41.9 Anxiety disorder, unspecified; F32.A Depression, unspecified; Z99.2 Dependence on renal dialysis; Z55.6 Problems related to health literacy; Z87.891 Personal history of nicotine dependence; Z95.5 Presence of coronary angioplasty implant and graft; Z79.899 Other long term (current) drug therapy
CPT/HCPCS: 36415; 71045; 80053; 83690; 84484; 85025; 93005; 94760